=== PATIENT | male | born 1955 | race Caucasian/White ===

== ENCOUNTER 2019-04-25 13:17 | Inpatient (IN) | payer MEDICAID ==
[~2019-04-25] VITALS: Ht 175.3 cm; Wt 59.0 kg
[2019-04-25] VITALS (7 sets, daily range): BP systolic 109–128
[2019-04-25] MEDS ORDERED: NS 500 ML IV ONE (14:00)
[2019-04-25 14:29] LABS: BASOPHILS # (AUTO) 0.1 K/uL (0.0-0.2); BASOPHILS % (AUTO) 0.3 % (0.0-2.0); EOSINOPHILS % (AUTO) 0.2 % (0.0-4.0); HEMATOCRIT 42.7 % (36-54); HEMOGLOBIN 14.2 g/dL (14.0-18.0); LYMPHOCYTES # (AUTO) 0.7 K/uL (1.0-5.5); LYMPHOCYTES % (AUTO) 3.3 % (20.5-51.5); MEAN CORPUSCULAR HEMOGLOBIN 32 pg (27-31); MEAN CORPUSCULAR HGB CONC 33 % (32-36); MEAN CORPUSCULAR VOLUME 97 fL (79.0-98.0); MONOCYTES % (AUTO) 4.8 % (1.7-9.3); NEUTROPHILS # (AUTO) 19.9 K/uL (1.8-7.7); NEUTROPHILS % (AUTO) 91.4 % (40.0-70.0); PLATELET COUNT (AUTO) 271 K/uL (130-430); RED BLOOD CELL COUNT(AUTO) 4.39 MIL/uL (4.2-6.2); RED CELL DISTRIBUTION WIDTH 17.1 % (9.0-15.0); WHITE BLOOD COUNT (AUTO) 21.7 K/uL (4.8-10.8)
[2019-04-25 14:46] LABS: CALCIUM 8.8 mg/dL (8.4-11.0); CREATININE 0.45 mg/dL (0.55-1.30); POTASSIUM 4.7 mmol/L (3.5-5.1)
[2019-04-25 14:51] LABS: INR 1.1 (0.80-1.20); PROTHROMBIN TIME 11.4 SECS (9.5-12.5)
[2019-04-25 14:52] LABS: ALBUMIN 2.7 g/dL (3.4-4.8); TOTAL BILIRUBIN 0.7 mg/dL (0.0-1.0)
[2019-04-25] MEDS ORDERED: AZITHROMYCIN 500 MG in NS 250 ML IV ONE (15:00)
[2019-04-25] MEDS ORDERED: PIPERACILLIN/TAZO 3.375 GM in NS 50 ML IV ONE (15:00)
[2019-04-25] MEDS ORDERED: PIPERACILLIN/TAZOBACTAM 3.375 GM/VIAL (ZOSYN) IV ONE (15:22)
[2019-04-25] MEDS ORDERED: AZITHROMYCIN 500 MG/VIAL (ZITHROMAX) IV ONE (15:25)
[2019-04-25] MEDS ORDERED: VITD2000 GT (16:02)
[2019-04-25] MEDS ORDERED: [UNRECOGNIZED DRUG - CODE] TP (16:02)
[2019-04-25] MEDS ORDERED: HYT1 GT (16:02)
[2019-04-25] MEDS ORDERED: IPRA4AER INH (16:02)
[2019-04-25] MEDS ORDERED: IPRA3AMP19 NEB (16:15)
[2019-04-25] MEDS ORDERED: BETH50TA GT (16:15)
[2019-04-25] MEDS ORDERED: GABA-529 GT (16:15)
[2019-04-25] MEDS ORDERED: POLY15DR31 EACH EYE (16:15)
[2019-04-25] MEDS ORDERED: PHEN125O GT (16:15)
[2019-04-25] MEDS ORDERED: RIVA20TA GT (16:15)
[2019-04-25] MEDS ORDERED: BACL10TA GT (16:15)
[2019-04-25] MEDS ORDERED: ECO81 GT (16:15)
[2019-04-25 16:30] LABS: BILIRUBIN,URINE NEGATIVE (NEGATIVE); BLOOD, URINE 1+ (NEGATIVE); CLARITY/URINE SL CLOUDY (CLEAR); COLOR,URINE YELLOW (YELLOW); GLUCOSE,URINE NEGATIVE (NEGATIVE); KETONES,URINE NEGATIVE (NEGATIVE); LEUKOCYTE ESTERASE ,URINE NEGATIVE (NEGATIVE); NITRITE, URINE NEGATIVE (NEGATIVE); PH,URINE 5.5 (5.0-8.0); PROTEIN URINE NEGATIVE (NEGATIVE); UROBILINOGEN,URINE 0.2 (0.2-1.0)
[2019-04-25 16:45] LABS: BACTERIA,URINE MANY /HPF (None Seen); RBC,URINE 0-3 /HPF (0-3); URIC ACID CRYSTALS,URINE 0-10 /HPF (None Seen); URINE AMORPHOUS URATE 2+ /HPF (None Seen); WBC,URINE 0-3 /HPF (0-3)
[2019-04-25] MEDS ORDERED: IPRATROPIUM/ALBUTEROL SULFATE 3 ML AMPUL.NEB (DUONEB) INH PRN (18:15)
[2019-04-25] MEDS ORDERED: ACETAMINOPHEN 650 MG/20.3 ML UDC PO PRN (18:15)
[2019-04-25] MEDS: IPRATROPIUM/ALBUTEROL SULFATE 3 ML AMPUL.NEB (DUONEB) INH SCH ×2 (20:01→23:42)
[2019-04-25] MEDS: BETHANECHOL CHLORIDE 25 MG TABLET (URECHOLINE) GT SCH (21:00)
[2019-04-25] MEDS: HIBICLENS TP SCH (21:00)
[2019-04-25] MEDS: RIVAROXABAN 20 MG TABLET GT SCH (21:49)
[2019-04-25] MEDS: PEG 400/HYPROMELLOSE/GLYCERIN 15 ML DROPS EACH EYE SCH ×2 (21:51→23:49)
[2019-04-25] MEDS: BACLOFEN 10 MG TABLET GT SCH (21:51)
[2019-04-25] MEDS: GABAPENTIN 100 MG CAPSULE GT SCH (21:52)
[2019-04-25] MEDS: LACTOBACILLUS RHAMNOSUS GG 1 CAP CAPSULE GT SCH (21:52)
[2019-04-25] MEDS: TERAZOSIN HCL 5 MG CAPSULE (HYTRIN) GT SCH (21:53)
[2019-04-25] MEDS: PHENYTOIN 100 MG/4 ML UDC (DILANTIN) GT SCH (21:54)
[2019-04-25] MEDS: guaiFENesin 200 MG/10 ML UDC GT SCH (21:54)
[2019-04-25] MEDS: NACL 0.9% 1,000 ML IV SCH (23:48)
[2019-04-25] MEDS: PIPERACILLIN/TAZO 3.375/DEX-IS 50 ML IV SCH (23:49)
[2019-04-26] VITALS (24 sets, daily range): BP systolic 94–131
[2019-04-26] MEDS: IPRATROPIUM/ALBUTEROL SULFATE 3 ML AMPUL.NEB (DUONEB) INH SCH ×6 (03:24→23:24)
[2019-04-26] MEDS: PEG 400/HYPROMELLOSE/GLYCERIN 15 ML DROPS EACH EYE SCH ×3 (05:41→17:17)
[2019-04-26] MEDS: GABAPENTIN 100 MG CAPSULE GT SCH ×3 (05:42→21:44)
[2019-04-26] MEDS: PIPERACILLIN/TAZO 3.375/DEX-IS 50 ML IV SCH ×3 (05:42→17:16)
[2019-04-26 06:03] LABS: BASOPHILS # (AUTO) 0.1 K/uL (0.0-0.2); BASOPHILS % (AUTO) 0.3 % (0.0-2.0); EOSINOPHILS % (AUTO) 0.1 % (0.0-4.0); HEMATOCRIT 40.9 % (36-54); HEMOGLOBIN 13.4 g/dL (14.0-18.0); LYMPHOCYTES # (AUTO) 0.7 K/uL (1.0-5.5); LYMPHOCYTES % (AUTO) 3.6 % (20.5-51.5); MEAN CORPUSCULAR HEMOGLOBIN 32 pg (27-31); MEAN CORPUSCULAR HGB CONC 33 % (32-36); MONOCYTES # (AUTO) 1.5 K/uL (0.0-1.0); MONOCYTES % (AUTO) 7.6 % (1.7-9.3); NEUTROPHILS # (AUTO) 17.3 K/uL (1.8-7.7); NEUTROPHILS % (AUTO) 88.4 % (40.0-70.0); PLATELET COUNT (AUTO) 220 K/uL (130-430); RED BLOOD CELL COUNT(AUTO) 4.15 MIL/uL (4.2-6.2); RED CELL DISTRIBUTION WIDTH 16.9 % (9.0-15.0); WHITE BLOOD COUNT (AUTO) 19.6 K/uL (4.8-10.8)
[2019-04-26 06:07] LABS: ALBUMIN 2.5 g/dL (3.4-4.8); CALCIUM 8.7 mg/dL (8.4-11.0); CREATININE 0.63 mg/dL (0.55-1.30); POTASSIUM 3.7 mmol/L (3.5-5.1); TOTAL BILIRUBIN 0.6 mg/dL (0.0-1.0)
[2019-04-26 06:10] LABS: MEAN CORPUSCULAR VOLUME 98 fL (79.0-98.0)
[2019-04-26] MEDS: HIBICLENS TP SCH ×2 (09:00→20:47)
[2019-04-26] MEDS ORDERED: AZITHROMYCIN 500 MG in NS 250 ML IV SCH (09:00)
[2019-04-26] MEDS: PHENYTOIN 100 MG/4 ML UDC (DILANTIN) GT SCH ×3 (09:15→20:47)
[2019-04-26] MEDS: guaiFENesin 200 MG/10 ML UDC GT SCH ×4 (09:15→20:44)
[2019-04-26] MEDS: LACTOBACILLUS RHAMNOSUS GG 1 CAP CAPSULE GT SCH ×2 (09:16→20:45)
[2019-04-26] MEDS: ASPIRIN 81 MG TAB.CHEW GT SCH (09:16)
[2019-04-26] MEDS: CHOLECALCIFEROL (VITAMIN D3) 2,000 UNIT TABLET GT SCH (09:16)
[2019-04-26] MEDS: BACLOFEN 10 MG TABLET GT SCH ×3 (09:16→20:44)
[2019-04-26] MEDS: BETHANECHOL CHLORIDE 25 MG TABLET (URECHOLINE) GT SCH ×3 (09:41→20:45)
[2019-04-26] MEDS: TERAZOSIN HCL 5 MG CAPSULE (HYTRIN) GT SCH ×2 (09:41→20:46)
[2019-04-26] MEDS: LEVOFLOXACIN 500 MG/D5W 100 ML IV SCH (14:08)
[2019-04-26] MEDS ORDERED: MENTHOL/ZINC OXIDE 113 GM OINT. TP PRN (14:45)
[2019-04-26] MEDS: RIVAROXABAN 20 MG TABLET GT SCH (17:18)
[2019-04-26] MEDS: NACL 0.9% 1,000 ML IV SCH (17:20)
[2019-04-27] VITALS (20 sets, daily range): BP systolic 83–118
[2019-04-27] MEDS: PIPERACILLIN/TAZO 3.375/DEX-IS 50 ML IV SCH ×5 (00:15→23:05)
[2019-04-27] MEDS: PEG 400/HYPROMELLOSE/GLYCERIN 15 ML DROPS EACH EYE SCH ×5 (00:16→23:05)
[2019-04-27] MEDS: IPRATROPIUM/ALBUTEROL SULFATE 3 ML AMPUL.NEB (DUONEB) INH SCH ×6 (03:25→23:01)
[2019-04-27 05:30] LABS: BASOPHILS # (AUTO) 0.1 K/uL (0.0-0.2); BASOPHILS % (AUTO) 0.4 % (0.0-2.0); EOSINOPHILS # (AUTO) 0.4 K/uL (0.0-0.4); EOSINOPHILS % (AUTO) 2.7 % (0.0-4.0); HEMATOCRIT 35.2 % (36-54); HEMOGLOBIN 11.8 g/dL (14.0-18.0); LYMPHOCYTES # (AUTO) 1.3 K/uL (1.0-5.5); LYMPHOCYTES % (AUTO) 9.4 % (20.5-51.5); MEAN CORPUSCULAR HEMOGLOBIN 33 pg (27-31); MEAN CORPUSCULAR HGB CONC 33 % (32-36); MEAN CORPUSCULAR VOLUME 98 fL (79.0-98.0); MONOCYTES # (AUTO) 1.3 K/uL (0.0-1.0); MONOCYTES % (AUTO) 9.2 % (1.7-9.3); NEUTROPHILS % (AUTO) 78.3 % (40.0-70.0); PLATELET COUNT (AUTO) 199 K/uL (130-430); RED BLOOD CELL COUNT(AUTO) 3.59 MIL/uL (4.2-6.2); RED CELL DISTRIBUTION WIDTH 16.7 % (9.0-15.0)
[2019-04-27] MEDS: GABAPENTIN 100 MG CAPSULE GT SCH ×3 (05:47→22:23)
[2019-04-27 05:52] LABS: ALBUMIN 2.4 g/dL (3.4-4.8); BILIRUBIN,DIRECT 0.1 mg/dL (0.0-0.3); CALCIUM 8.3 mg/dL (8.4-11.0); CREATININE 0.48 mg/dL (0.55-1.30); POTASSIUM 3.3 mmol/L (3.5-5.1); TOTAL BILIRUBIN 0.3 mg/dL (0.0-1.0)
[2019-04-27] MEDS: BALSAM PERU/CASTOR OIL 60 GM OINT...G. TP SCH (08:27)
[2019-04-27] MEDS: BETHANECHOL CHLORIDE 25 MG TABLET (URECHOLINE) GT SCH ×3 (08:27→22:24)
[2019-04-27] MEDS: TERAZOSIN HCL 5 MG CAPSULE (HYTRIN) GT SCH ×2 (08:28→22:25)
[2019-04-27] MEDS: BACLOFEN 10 MG TABLET GT SCH ×3 (08:29→22:24)
[2019-04-27] MEDS: CHOLECALCIFEROL (VITAMIN D3) 2,000 UNIT TABLET GT SCH (08:29)
[2019-04-27] MEDS: PHENYTOIN 100 MG/4 ML UDC (DILANTIN) GT SCH ×3 (08:29→22:23)
[2019-04-27] MEDS: LACTOBACILLUS RHAMNOSUS GG 1 CAP CAPSULE GT SCH ×2 (08:29→22:24)
[2019-04-27] MEDS: ASPIRIN 81 MG TAB.CHEW GT SCH (08:29)
[2019-04-27] MEDS: HIBICLENS TP SCH (09:00)
[2019-04-27] MEDS: guaiFENesin 200 MG/10 ML UDC GT SCH ×4 (09:27→22:22)
[2019-04-27] MEDS: LEVOFLOXACIN 500 MG/D5W 100 ML IV SCH (12:07)
[2019-04-27] MEDS ORDERED: POTASSIUM CHLORIDE 20 MEQ/PKT PACKET PO ONE (13:00)
[2019-04-27] MEDS: NACL 0.9% 1,000 ML IV SCH (14:33)
[2019-04-27] MEDS: RIVAROXABAN 20 MG TABLET GT SCH (17:41)
[2019-04-27] MEDS: CHLORHEXIDINE GLUCONATE 15 ML/DOSE, 480 ML MM SCH (21:00)
[2019-04-27] MEDS: POTASSIUM CHLORIDE 20 MEQ/PKT PACKET PO SCH (22:23)
[2019-04-28] VITALS: BP_SYST 108
[2019-04-28] MEDS: IPRATROPIUM/ALBUTEROL SULFATE 3 ML AMPUL.NEB (DUONEB) INH SCH ×6 (02:45→23:36)
[2019-04-28] MEDS: GABAPENTIN 100 MG CAPSULE GT SCH ×3 (05:01→23:07)
[2019-04-28] MEDS: PEG 400/HYPROMELLOSE/GLYCERIN 15 ML DROPS EACH EYE SCH ×4 (05:02→23:28)
[2019-04-28] MEDS: PIPERACILLIN/TAZO 3.375/DEX-IS 50 ML IV SCH (05:02)
[2019-04-28 06:23] LABS: ALBUMIN 2.1 g/dL (3.4-4.8); CALCIUM 8.2 mg/dL (8.4-11.0); CREATININE 0.4 mg/dL (0.55-1.30); TOTAL BILIRUBIN 0.2 mg/dL (0.0-1.0)
[2019-04-28 07:03] LABS: BASOPHILS % (AUTO) 0.6 % (0.0-2.0); EOSINOPHILS # (AUTO) 0.3 K/uL (0.0-0.4); EOSINOPHILS % (AUTO) 3.1 % (0.0-4.0); HEMATOCRIT 34.6 % (36-54); HEMOGLOBIN 11.5 g/dL (14.0-18.0); LYMPHOCYTES % (AUTO) 11.4 % (20.5-51.5); MEAN CORPUSCULAR HEMOGLOBIN 33 pg (27-31); MEAN CORPUSCULAR HGB CONC 33 % (32-36); MEAN CORPUSCULAR VOLUME 99 fL (79.0-98.0); MONOCYTES # (AUTO) 0.6 K/uL (0.0-1.0); MONOCYTES % (AUTO) 7.1 % (1.7-9.3); NEUTROPHILS # (AUTO) 6.7 K/uL (1.8-7.7); NEUTROPHILS % (AUTO) 77.8 % (40.0-70.0); PLATELET COUNT (AUTO) 233 K/uL (130-430); RED CELL DISTRIBUTION WIDTH 16.9 % (9.0-15.0); WHITE BLOOD COUNT (AUTO) 8.6 K/uL (4.8-10.8)
[2019-04-28] MEDS: guaiFENesin 200 MG/10 ML UDC GT SCH ×4 (08:43→23:07)
[2019-04-28] MEDS: POTASSIUM CHLORIDE 20 MEQ/PKT PACKET PO SCH ×2 (08:43→23:07)
[2019-04-28] MEDS: BETHANECHOL CHLORIDE 25 MG TABLET (URECHOLINE) GT SCH ×3 (08:44→23:10)
[2019-04-28] MEDS: ASPIRIN 81 MG TAB.CHEW GT SCH (08:44)
[2019-04-28] MEDS: PHENYTOIN 100 MG/4 ML UDC (DILANTIN) GT SCH ×3 (08:44→23:11)
[2019-04-28] MEDS: LACTOBACILLUS RHAMNOSUS GG 1 CAP CAPSULE GT SCH ×2 (08:44→23:10)
[2019-04-28] MEDS: CHOLECALCIFEROL (VITAMIN D3) 2,000 UNIT TABLET GT SCH (08:44)
[2019-04-28] MEDS: BACLOFEN 10 MG TABLET GT SCH ×3 (08:45→23:07)
[2019-04-28] MEDS: BALSAM PERU/CASTOR OIL 60 GM OINT...G. TP SCH (08:47)
[2019-04-28] MEDS: TERAZOSIN HCL 5 MG CAPSULE (HYTRIN) GT SCH ×2 (08:47→23:10)
[2019-04-28 08:48] VITALS: BP_SYST 103
[2019-04-28] MEDS: CHLORHEXIDINE GLUCONATE 15 ML/DOSE, 480 ML MM SCH ×2 (09:00→21:00)
[2019-04-28] MEDS: NACL 0.9% 1,000 ML IV SCH (11:36)
[2019-04-28 13:05] VITALS: BP_SYST 112
[2019-04-28 16:17] VITALS: BP_SYST 114
[2019-04-28] MEDS: RIVAROXABAN 20 MG TABLET GT SCH (17:23)
[2019-04-28 20:35] VITALS: BP_SYST 109
[2019-04-28] MEDS: CEFEPIME 1 GM in D5W 50 ML IV SCH (23:10)
[2019-04-29] VITALS (7 sets, daily range): BP systolic 105–130
[2019-04-29] MEDS: IPRATROPIUM/ALBUTEROL SULFATE 3 ML AMPUL.NEB (DUONEB) INH SCH ×5 (03:29→20:09)
[2019-04-29] MEDS: GABAPENTIN 100 MG CAPSULE GT SCH ×3 (05:59→23:40)
[2019-04-29] MEDS: NACL 0.9% 1,000 ML IV SCH ×2 (06:00→23:40)
[2019-04-29] MEDS: PEG 400/HYPROMELLOSE/GLYCERIN 15 ML DROPS EACH EYE SCH ×4 (06:00→23:40)
[2019-04-29] MEDS: guaiFENesin 200 MG/10 ML UDC GT SCH ×4 (08:22→23:39)
[2019-04-29] MEDS: PHENYTOIN 100 MG/4 ML UDC (DILANTIN) GT SCH ×3 (08:22→23:38)
[2019-04-29] MEDS: BETHANECHOL CHLORIDE 25 MG TABLET (URECHOLINE) GT SCH ×3 (08:22→23:39)
[2019-04-29] MEDS: BACLOFEN 10 MG TABLET GT SCH ×3 (08:23→23:37)
[2019-04-29] MEDS: LACTOBACILLUS RHAMNOSUS GG 1 CAP CAPSULE GT SCH ×2 (08:23→23:37)
[2019-04-29] MEDS: POTASSIUM CHLORIDE 20 MEQ/PKT PACKET PO SCH ×2 (08:23→23:40)
[2019-04-29] MEDS: ASPIRIN 81 MG TAB.CHEW GT SCH (08:23)
[2019-04-29] MEDS: CEFEPIME 1 GM in D5W 50 ML IV SCH ×2 (08:24→23:39)
[2019-04-29] MEDS: CHOLECALCIFEROL (VITAMIN D3) 2,000 UNIT TABLET GT SCH (08:24)
[2019-04-29] MEDS: TERAZOSIN HCL 5 MG CAPSULE (HYTRIN) GT SCH ×2 (08:24→23:38)
[2019-04-29] MEDS: BALSAM PERU/CASTOR OIL 60 GM OINT...G. TP SCH (08:34)
[2019-04-29] MEDS: CHLORHEXIDINE GLUCONATE 15 ML/DOSE, 480 ML MM SCH ×2 (08:44→23:41)
[2019-04-29] MEDS ORDERED: FUROSEMIDE 20 MG/2 ML VIAL IVP ONE (11:00)
[2019-04-29] MEDS: RIVAROXABAN 20 MG TABLET GT SCH (18:33)
[2019-04-30] MEDS: IPRATROPIUM/ALBUTEROL SULFATE 3 ML AMPUL.NEB (DUONEB) INH SCH ×6 (00:41→23:44)
[2019-04-30] MEDS: PEG 400/HYPROMELLOSE/GLYCERIN 15 ML DROPS EACH EYE SCH ×3 (05:18→18:21)
[2019-04-30] MEDS: GABAPENTIN 100 MG CAPSULE GT SCH ×3 (05:18→21:52)
[2019-04-30 05:58] LABS: BASOPHILS # (AUTO) 0.1 K/uL (0.0-0.2); BASOPHILS % (AUTO) 0.7 % (0.0-2.0); EOSINOPHILS # (AUTO) 0.7 K/uL (0.0-0.4); EOSINOPHILS % (AUTO) 6.3 % (0.0-4.0); HEMOGLOBIN 12.9 g/dL (14.0-18.0); LYMPHOCYTES # (AUTO) 0.8 K/uL (1.0-5.5); LYMPHOCYTES % (AUTO) 7.8 % (20.5-51.5); MEAN CORPUSCULAR HEMOGLOBIN 33 pg (27-31); MEAN CORPUSCULAR HGB CONC 34 % (32-36); MEAN CORPUSCULAR VOLUME 97 fL (79.0-98.0); MONOCYTES # (AUTO) 0.8 K/uL (0.0-1.0); MONOCYTES % (AUTO) 7.8 % (1.7-9.3); NEUTROPHILS # (AUTO) 8.4 K/uL (1.8-7.7); NEUTROPHILS % (AUTO) 77.4 % (40.0-70.0); PLATELET COUNT (AUTO) 314 K/uL (130-430); RED BLOOD CELL COUNT(AUTO) 3.92 MIL/uL (4.2-6.2); WHITE BLOOD COUNT (AUTO) 10.9 K/uL (4.8-10.8)
[2019-04-30 06:05] LABS: CALCIUM 8.3 mg/dL (8.4-11.0); CREATININE 0.33 mg/dL (0.55-1.30); POTASSIUM 4.3 mmol/L (3.5-5.1)
[2019-04-30] MEDS: PHENYTOIN 100 MG/4 ML UDC (DILANTIN) GT SCH ×3 (09:06→21:52)
[2019-04-30] MEDS: POTASSIUM CHLORIDE 20 MEQ/PKT PACKET PO SCH ×2 (09:11→21:52)
[2019-04-30] MEDS: BETHANECHOL CHLORIDE 25 MG TABLET (URECHOLINE) GT SCH ×3 (09:11→21:47)
[2019-04-30] MEDS: guaiFENesin 200 MG/10 ML UDC GT SCH ×4 (09:11→21:51)
[2019-04-30] MEDS: BACLOFEN 10 MG TABLET GT SCH ×3 (09:12→21:47)
[2019-04-30] MEDS: CEFEPIME 1 GM in D5W 50 ML IV SCH ×2 (09:12→21:53)
[2019-04-30] MEDS: TERAZOSIN HCL 5 MG CAPSULE (HYTRIN) GT SCH ×2 (09:12→21:51)
[2019-04-30] MEDS: LACTOBACILLUS RHAMNOSUS GG 1 CAP CAPSULE GT SCH ×2 (09:12→21:47)
[2019-04-30] MEDS: CHOLECALCIFEROL (VITAMIN D3) 2,000 UNIT TABLET GT SCH (09:12)
[2019-04-30] MEDS: BALSAM PERU/CASTOR OIL 60 GM OINT...G. TP SCH (09:13)
[2019-04-30] MEDS: CHLORHEXIDINE GLUCONATE 15 ML/DOSE, 480 ML MM SCH ×2 (09:14→21:53)
[2019-04-30] MEDS: ASPIRIN 81 MG TAB.CHEW GT SCH (09:56)
[2019-04-30 12:28] VITALS: BP_SYST 111
[2019-04-30 16:56] VITALS: BP_SYST 119
[2019-04-30] MEDS: RIVAROXABAN 20 MG TABLET GT SCH (18:20)
[2019-04-30 20:00] VITALS: BP_SYST 130
[2019-04-30] MEDS: NACL 0.9% 1,000 ML IV SCH (21:54)
[2019-04-30 23:29] VITALS: BP_SYST 128
[2019-05-01] MEDS: PEG 400/HYPROMELLOSE/GLYCERIN 15 ML DROPS EACH EYE SCH ×4 (00:52→17:55)
[2019-05-01] MEDS: IPRATROPIUM/ALBUTEROL SULFATE 3 ML AMPUL.NEB (DUONEB) INH SCH ×6 (03:42→23:12)
[2019-05-01] MEDS: GABAPENTIN 100 MG CAPSULE GT SCH ×3 (05:25→21:11)
[2019-05-01 08:00] VITALS: BP_SYST 136
[2019-05-01] MEDS: guaiFENesin 200 MG/10 ML UDC GT SCH ×4 (10:25→21:12)
[2019-05-01] MEDS: POTASSIUM CHLORIDE 20 MEQ/PKT PACKET PO SCH ×2 (10:25→21:11)
[2019-05-01] MEDS: LACTOBACILLUS RHAMNOSUS GG 1 CAP CAPSULE GT SCH ×2 (10:26→21:11)
[2019-05-01] MEDS: ASPIRIN 81 MG TAB.CHEW GT SCH (10:26)
[2019-05-01] MEDS: PHENYTOIN 100 MG/4 ML UDC (DILANTIN) GT SCH ×3 (10:26→21:12)
[2019-05-01] MEDS: BACLOFEN 10 MG TABLET GT SCH ×3 (10:27→21:11)
[2019-05-01] MEDS: BETHANECHOL CHLORIDE 25 MG TABLET (URECHOLINE) GT SCH ×3 (10:27→21:11)
[2019-05-01] MEDS: CHOLECALCIFEROL (VITAMIN D3) 2,000 UNIT TABLET GT SCH (10:27)
[2019-05-01] MEDS: BALSAM PERU/CASTOR OIL 60 GM OINT...G. TP SCH (10:28)
[2019-05-01] MEDS: CHLORHEXIDINE GLUCONATE 15 ML/DOSE, 480 ML MM SCH ×2 (10:28→21:13)
[2019-05-01] MEDS: CEFEPIME 1 GM in D5W 50 ML IV SCH ×2 (10:29→21:11)
[2019-05-01] MEDS: TERAZOSIN HCL 5 MG CAPSULE (HYTRIN) GT SCH ×2 (10:30→21:12)
[2019-05-01 12:29] VITALS: BP_SYST 123
[2019-05-01] MEDS: NACL 0.9% 1,000 ML IV SCH (15:47)
[2019-05-01 16:39] VITALS: BP_SYST 126
[2019-05-01] MEDS: RIVAROXABAN 20 MG TABLET GT SCH (17:55)
[2019-05-01 20:00] VITALS: BP_SYST 127
[2019-05-01 23:41] VITALS: BP_SYST 125
[2019-05-02] MEDS: PEG 400/HYPROMELLOSE/GLYCERIN 15 ML DROPS EACH EYE SCH ×3 (00:40→13:26)
[2019-05-02] MEDS: IPRATROPIUM/ALBUTEROL SULFATE 3 ML AMPUL.NEB (DUONEB) INH SCH ×4 (03:40→18:14)
[2019-05-02] MEDS: GABAPENTIN 100 MG CAPSULE GT SCH ×2 (05:12→13:25)
[2019-05-02 06:17] LABS: BASOPHILS # (AUTO) 0.1 K/uL (0.0-0.2); BASOPHILS % (AUTO) 1.7 % (0.0-2.0); EOSINOPHILS % (AUTO) 16.1 % (0.0-4.0); HEMOGLOBIN 12.8 g/dL (14.0-18.0); LYMPHOCYTES # (AUTO) 1.1 K/uL (1.0-5.5); LYMPHOCYTES % (AUTO) 17.3 % (20.5-51.5); MEAN CORPUSCULAR HEMOGLOBIN 33 pg (27-31); MEAN CORPUSCULAR HGB CONC 34 % (32-36); MEAN CORPUSCULAR VOLUME 97 fL (79.0-98.0); MONOCYTES # (AUTO) 0.6 K/uL (0.0-1.0); MONOCYTES % (AUTO) 10.5 % (1.7-9.3); NEUTROPHILS # (AUTO) 3.4 K/uL (1.8-7.7); NEUTROPHILS % (AUTO) 54.4 % (40.0-70.0); PLATELET COUNT (AUTO) 335 K/uL (130-430); WHITE BLOOD COUNT (AUTO) 6.2 K/uL (4.8-10.8)
[2019-05-02 06:24] LABS: ALBUMIN 2.3 g/dL (3.4-4.8); CALCIUM 8.3 mg/dL (8.4-11.0); CREATININE 0.41 mg/dL (0.55-1.30); POTASSIUM 4.2 mmol/L (3.5-5.1); TOTAL BILIRUBIN 0.2 mg/dL (0.0-1.0)
[2019-05-02 08:00] VITALS: BP_SYST 119
[2019-05-02] MEDS: POTASSIUM CHLORIDE 20 MEQ/PKT PACKET PO SCH (10:13)
[2019-05-02] MEDS: guaiFENesin 200 MG/10 ML UDC GT SCH ×2 (10:14→13:26)
[2019-05-02] MEDS: BACLOFEN 10 MG TABLET GT SCH ×2 (10:14→16:56)
[2019-05-02] MEDS: PHENYTOIN 100 MG/4 ML UDC (DILANTIN) GT SCH ×2 (10:14→16:57)
[2019-05-02] MEDS: LACTOBACILLUS RHAMNOSUS GG 1 CAP CAPSULE GT SCH (10:14)
[2019-05-02] MEDS: ASPIRIN 81 MG TAB.CHEW GT SCH (10:15)
[2019-05-02] MEDS: BETHANECHOL CHLORIDE 25 MG TABLET (URECHOLINE) GT SCH ×2 (10:15→16:56)
[2019-05-02] MEDS: TERAZOSIN HCL 5 MG CAPSULE (HYTRIN) GT SCH (10:15)
[2019-05-02] MEDS: CHOLECALCIFEROL (VITAMIN D3) 2,000 UNIT TABLET GT SCH (10:15)
[2019-05-02] MEDS: CEFEPIME 1 GM in D5W 50 ML IV SCH (10:16)
[2019-05-02] MEDS: BALSAM PERU/CASTOR OIL 60 GM OINT...G. TP SCH (10:17)
[2019-05-02] MEDS: CHLORHEXIDINE GLUCONATE 15 ML/DOSE, 480 ML MM SCH (10:17)
[2019-05-02 12:23] VITALS: BP_SYST 129
[2019-05-02] MEDS: NACL 0.9% 1,000 ML IV SCH (13:25)
[2019-05-02 16:57] VITALS: BP_SYST 109
[2019-05-02 18:03] VITALS: BP_SYST 109
== END 2019-05-02 18:50 | DRG 720 ==
LOC: SED 13:17 → SIC 17:02 → STU 04-27 19:57
PROVIDERS: ADMIT Internal Medicine; ATTEND Internal Medicine
DX: A41.9 Sepsis, unspecified organism (principal); J96.20 Acute and chronic respiratory failure, unspecified whether with hypoxia or hypercapnia; E43 Unspecified severe protein-calorie malnutrition; G82.50 Quadriplegia, unspecified; G93.1 Anoxic brain damage, not elsewhere classified; J15.9 Unspecified bacterial pneumonia; J44.0 Chronic obstructive pulmonary disease with (acute) lower respiratory infection; N39.0 Urinary tract infection, site not specified; Y95 Nosocomial condition; I10 Essential (primary) hypertension; E87.6 Hypokalemia; J98.11 Atelectasis; Z68.1 Body mass index [BMI] 19.9 or less, adult; Z86.73 Personal history of transient ischemic attack (TIA), and cerebral infarction without residual deficits; Z79.899 Other long term (current) drug therapy
CPT/HCPCS: 36415; 36600; 71045; 71250-TC; 80048; 80053; 80076; 81000-TC; 82803-TC; 83605; 84484; 85025; 85610-TC; 85730-TC; 87040-TC; 87070-TC; 87081; 87086; 87205-TC; 93005; 94640; 94760; 96361; 96365; 96368; 99291; G0378; J0456; J0692; J1940; J1956; J2543; J7030; J7050; J7060

== ENCOUNTER 2019-05-30 13:30 | Emergency (ER) | payer MEDICAID ==
[~2019-05-30] VITALS: Ht 172.7 cm; Wt 83.9 kg
[~2019-05-30 13:30] MED LIST: BACL10TA GT; BETH50TA GT; ECO81 GT; GABA-529 GT; HYT1 GT; IPRA3AMP19 NEB; IPRA4AER INH; PHEN125O GT; POLY15DR31 EACH EYE; RIVA20TA GT; VITD2000 GT; [UNRECOGNIZED DRUG - CODE] TP
[2019-05-30 13:50] VITALS: BP_SYST 96
[2019-05-30 14:18] LABS: BASOPHILS # (AUTO) 0.1 K/uL (0.0-0.2); BASOPHILS % (AUTO) 1.1 % (0.0-2.0); EOSINOPHILS # (AUTO) 0.2 K/uL (0.0-0.4); EOSINOPHILS % (AUTO) 2.4 % (0.0-4.0); HEMATOCRIT 37.8 % (36-54); HEMOGLOBIN 12.5 g/dL (14.0-18.0); LYMPHOCYTES # (AUTO) 1.1 K/uL (1.0-5.5); LYMPHOCYTES % (AUTO) 10.9 % (20.5-51.5); MEAN CORPUSCULAR HEMOGLOBIN 33 pg (27-31); MEAN CORPUSCULAR HGB CONC 33 % (32-36); MEAN CORPUSCULAR VOLUME 100 fL (79.0-98.0); MONOCYTES # (AUTO) 0.7 K/uL (0.0-1.0); MONOCYTES % (AUTO) 6.9 % (1.7-9.3); NEUTROPHILS % (AUTO) 78.7 % (40.0-70.0); PLATELET COUNT (AUTO) 289 K/uL (130-430); RED BLOOD CELL COUNT(AUTO) 3.79 MIL/uL (4.2-6.2); RED CELL DISTRIBUTION WIDTH 15.5 % (9.0-15.0); WHITE BLOOD COUNT (AUTO) 10.1 K/uL (4.8-10.8)
[2019-05-30] MEDS ORDERED: NS 500 ML IV ONE (14:30)
[2019-05-30] MEDS ORDERED: ACETAMINOPHEN 650 MG SUPP.RECT RC ONE (14:30)
[2019-05-30 14:37] LABS: BILIRUBIN,URINE NEGATIVE (NEGATIVE); BLOOD, URINE 3+ (NEGATIVE); CLARITY/URINE CLEAR (CLEAR); COLOR,URINE YELLOW (YELLOW); GLUCOSE,URINE NEGATIVE (NEGATIVE); KETONES,URINE NEGATIVE (NEGATIVE); LEUKOCYTE ESTERASE ,URINE NEGATIVE (NEGATIVE); NITRITE, URINE NEGATIVE (NEGATIVE); PH,URINE 5.5 (5.0-8.0); PROTEIN URINE 1+ (NEGATIVE)
[2019-05-30 14:43] LABS: BACTERIA,URINE FEW /HPF (None Seen); MUCUS,URINE 1+ /LPF (None Seen); RBC,URINE 20-50 /HPF (0-3)
[2019-05-30] MEDS ORDERED: DOCU-144 GT (15:10)
[2019-05-30] MEDS ORDERED: IPRA3AMP9 INH (15:10)
[2019-05-30] MEDS ORDERED: BETH50TA8 GT (15:10)
[2019-05-30] MEDS ORDERED: DEXT30DR6 EACH EYE (15:10)
[2019-05-30] MEDS ORDERED: VITD2000 GT ×2 (15:10)
[2019-05-30] MEDS ORDERED: BACL10TA GT (15:10)
[2019-05-30] MEDS ORDERED: ASPI-1153 GT (15:10)
[2019-05-30] MEDS ORDERED: GABA-529 GT (15:10)
[2019-05-30 15:22] LABS: CALCIUM 7.9 mg/dL (8.4-11.0); CREATININE 0.64 mg/dL (0.55-1.30); POTASSIUM 4.1 mmol/L (3.5-5.1)
[2019-05-30 15:28] LABS: ALBUMIN 2.4 g/dL (3.4-4.8); TOTAL BILIRUBIN 0.3 mg/dL (0.0-1.0)
[2019-05-30] MEDS ORDERED: PIPERACILLIN/TAZO 3.375 GM in NS 50 ML IV ONE (15:45)
[2019-05-30] MEDS ORDERED: PIPERACILLIN/TAZOBACTAM 3.375 GM/VIAL (ZOSYN) IV ONE (16:19)
[2019-05-30 16:25] VITALS: BP_SYST 105
== END 2019-05-30 16:25 ==
LOC: SED 13:30
DX: J18.8 Other pneumonia, unspecified organism (principal); E86.0 Dehydration; I10 Essential (primary) hypertension; Z79.899 Other long term (current) drug therapy
CPT/HCPCS: 36415; 71045; 80053; 81000; 83605; 85025; 86710; 87040; 87086; 96361; 96365; 99284; J2543; J7040; 87186-TC

== ENCOUNTER 2019-10-28 22:35 | Inpatient (IN) | payer MEDICAID, SELFPAY ==
[~2019-10-28] VITALS: Ht 177.8 cm; Wt 66.7 kg
[2019-10-28 22:35] VITALS: BP_SYST 96
[~2019-10-28 22:35] MED LIST changes: +ACET325C6 GT; +AMIN30LI31 GT; +ASPI-524 GT; -BETH50TA GT; +CHOL100038 GT; +DOCU-144 GT; +DOXY100C PO; -ECO81 GT; -HYT1 GT; -IPRA3AMP19 NEB; +IPRA3AMP9 NEB; -IPRA4AER INH; +LEVE500T9 PO; +MERI500 IVPB; +PERIDEX PO; -PHEN125O GT; +POTA20LI25 GT; +TAMS-11 GT; +TERA5CAP GT; -VITD2000 GT; -[UNRECOGNIZED DRUG - CODE] TP
[2019-10-28 23:08] LABS: MEAN CORPUSCULAR HEMOGLOBIN 32 pg (27-31); MEAN CORPUSCULAR HGB CONC 34 % (32-36); MEAN CORPUSCULAR VOLUME 92 fL (79.0-98.0); PLATELET COUNT (AUTO) 311 K/uL (130-430); RED BLOOD CELL COUNT(AUTO) 4.12 MIL/uL (4.2-6.2); RED CELL DISTRIBUTION WIDTH 14.8 % (9.0-15.0); WHITE BLOOD COUNT (AUTO) 25.6 K/uL (4.8-10.8)
[2019-10-28 23:24] LABS: CALCIUM 8.3 mg/dL (8.4-11.0); CREATININE 1.29 mg/dL (0.55-1.30); POTASSIUM 3.5 mmol/L (3.5-5.1)
[2019-10-28 23:29] LABS: ALBUMIN 2.6 g/dL (3.4-4.8); TOTAL BILIRUBIN 0.5 mg/dL (0.0-1.0)
[2019-10-28 23:35] LABS: BILIRUBIN,URINE 1+ (NEGATIVE); BLOOD, URINE 3+ (NEGATIVE); CLARITY/URINE CLOUDY (CLEAR); COLOR,URINE RED (YELLOW); GLUCOSE,URINE NEGATIVE (NEGATIVE); KETONES,URINE NEGATIVE (NEGATIVE); LEUKOCYTE ESTERASE ,URINE 3+ (NEGATIVE); NITRITE, URINE POSITIVE (NEGATIVE); PH,URINE 6.5 (5.0-8.0); PROTEIN URINE 3+ (NEGATIVE); UROBILINOGEN,URINE 0.2 (0.2-1.0)
[2019-10-28 23:42] LABS: C-REACTIVE PROTEIN QUANT 12.1 mg/dL (0-0.5)
[2019-10-28] MEDS ORDERED: VANCOMYCIN HCL 1,000 MG in NS 250 ML IV ONE (23:45)
[2019-10-28] MEDS ORDERED: NACL 0.9% IV ONE (23:45)
[2019-10-28 23:46] LABS: INR 1.5 (0.80-1.20); PROTHROMBIN TIME 15.2 SECS (9.5-12.5)
[2019-10-28 23:49] LABS: ATYPICAL LYMPHOCYTES % 0 % (0-0); BAND % (MANUAL) 14 % (0-6); BASOPHILS % (MANUAL) 0 % (0-2); EOSINOPHILS % (MANUAL) 0 % (0-7); LYMPHOCYTES % (MANUAL) 1 % (20-46); MONOCYTES % (MANUAL) 4 % (0-11)
[2019-10-28 23:55] LABS: BACTERIA,URINE MANY /HPF (None Seen); RBC,URINE >100 /HPF (0-3); WBC,URINE >100 /HPF (0-3)
[2019-10-28 23:57] LABS: FIBRINOGEN 516 mg/dL (200-400)
[2019-10-29] MEDS ORDERED: [UNRECOGNIZED DRUG - CODE] GT (00:09)
[2019-10-29] MEDS ORDERED: VANCOMYCIN HCL 1000 MG/VIAL IV ONE (00:10)
[2019-10-29] MEDS ORDERED: IPRATROPIUM/ALBUTEROL SULFATE 3 ML AMPUL.NEB (DUONEB) INH PRN (00:45)
[2019-10-29 01:45] VITALS: BP_SYST 105
[2019-10-29] MEDS ORDERED: PIPERACILLIN/TAZOBACTAM 3.375 GM/VIAL (ZOSYN) IV ONE (02:17)
[2019-10-29 04:00] VITALS: BP_SYST 112
[2019-10-29] MEDS: PIPERACILLIN/TAZO 3.375/DEX-IS 50 ML IV SCH ×3 (05:53→17:26)
[2019-10-29 08:00] VITALS: BP_SYST 112
[2019-10-29] MEDS ORDERED: DOXYCYCLINE HYCLATE 100 MG CAPSULE PO SCH (09:00)
[2019-10-29] MEDS ORDERED: NON-FORMULARY MEDICATION (Amino Acids/Protein Hydrolys (Pro-Stat Max Liquid Packet) 30 ML) GT SCH (09:00)
[2019-10-29] MEDS ORDERED: APIXABAN 2.5 MG TABLET GT ONE (09:30)
[2019-10-29] MEDS: TAMSULOSIN HCL 0.4 MG CAP GT SCH ×2 (09:56→20:36)
[2019-10-29] MEDS: BACLOFEN 10 MG TABLET GT SCH ×3 (09:56→20:35)
[2019-10-29] MEDS: CHOLECALCIFEROL (VITAMIN D3) 2,000 UNIT TABLET GT SCH (09:56)
[2019-10-29] MEDS: POTASSIUM CHLORIDE 20 MEQ/PKT PACKET GT SCH ×2 (09:56→20:44)
[2019-10-29] MEDS: CHLORHEXIDINE GLUCONATE 15 ML/DOSE, 480 ML MM SCH ×2 (09:56→20:43)
[2019-10-29] MEDS: TERAZOSIN HCL 5 MG CAPSULE (HYTRIN) GT SCH ×2 (09:56→22:08)
[2019-10-29] MEDS: LR 1,000 ML IV SCH ×2 (09:57→20:44)
[2019-10-29] MEDS: levETIRAcetam 500 MG TABLET PO SCH ×2 (09:57→20:36)
[2019-10-29] MEDS: IPRATROPIUM/ALBUTEROL SULFATE 3 ML AMPUL.NEB (DUONEB) IH SCH ×4 (11:19→23:00)
[2019-10-29] MEDS ORDERED: VANCOMYCIN HCL 1,500 MG in NS 250 ML IV SCH (12:00)
[2019-10-29] MEDS: PEG 400/HYPROMELLOSE/GLYCERIN 15 ML DROPS EACH EYE SCH ×2 (12:12→17:26)
[2019-10-29 12:15] VITALS: BP_SYST 104
[2019-10-29] MEDS: GABAPENTIN 100 MG CAPSULE GT SCH ×2 (14:35→22:08)
[2019-10-29 16:30] VITALS: BP_SYST 112
[2019-10-29 20:00] VITALS: BP_SYST 102
[2019-10-29] MEDS: APIXABAN 2.5 MG TABLET GT SCH (20:35)
[2019-10-29] MEDS: LINEZOLID 300 ML IV SCH (20:44)
[2019-10-29] MEDS ORDERED: DOXYCYCLINE HYCLATE 100 MG CAPSULE GT SCH (21:00)
[2019-10-30 00:55] VITALS: BP_SYST 100
[2019-10-30] MEDS: PEG 400/HYPROMELLOSE/GLYCERIN 15 ML DROPS EACH EYE SCH ×4 (00:59→17:32)
[2019-10-30] MEDS: PIPERACILLIN/TAZO 3.375/DEX-IS 50 ML IV SCH ×4 (00:59→17:33)
[2019-10-30] MEDS: IPRATROPIUM/ALBUTEROL SULFATE 3 ML AMPUL.NEB (DUONEB) IH SCH ×6 (03:47→23:08)
[2019-10-30] MEDS: LR 1,000 ML IV SCH ×2 (05:30→17:32)
[2019-10-30] MEDS: GABAPENTIN 100 MG CAPSULE GT SCH ×3 (06:41→21:07)
[2019-10-30 07:04] LABS: BASOPHILS % (AUTO) 0.4 % (0.0-2.0); EOSINOPHILS # (AUTO) 0.1 K/uL (0.0-0.4); EOSINOPHILS % (AUTO) 0.6 % (0.0-4.0); HEMATOCRIT 33.8 % (36-54); HEMOGLOBIN 11.2 g/dL (14.0-18.0); LYMPHOCYTES # (AUTO) 0.5 K/uL (1.0-5.5); LYMPHOCYTES % (AUTO) 4.4 % (20.5-51.5); MEAN CORPUSCULAR HEMOGLOBIN 31 pg (27-31); MEAN CORPUSCULAR HGB CONC 33 % (32-36); MEAN CORPUSCULAR VOLUME 94 fL (79.0-98.0); MONOCYTES # (AUTO) 0.5 K/uL (0.0-1.0); MONOCYTES % (AUTO) 4.4 % (1.7-9.3); NEUTROPHILS # (AUTO) 10.5 K/uL (1.8-7.7); NEUTROPHILS % (AUTO) 90.2 % (40.0-70.0); PLATELET COUNT (AUTO) 217 K/uL (130-430); RED BLOOD CELL COUNT(AUTO) 3.59 MIL/uL (4.2-6.2); RED CELL DISTRIBUTION WIDTH 14.4 % (9.0-15.0); WHITE BLOOD COUNT (AUTO) 11.6 K/uL (4.8-10.8)
[2019-10-30 07:48] LABS: ALBUMIN 2.1 g/dL (3.4-4.8); CALCIUM 8.2 mg/dL (8.4-11.0); CREATININE 0.54 mg/dL (0.55-1.30); POTASSIUM 3.5 mmol/L (3.5-5.1); TOTAL BILIRUBIN 0.3 mg/dL (0.0-1.0)
[2019-10-30 08:00] VITALS: BP_SYST 108
[2019-10-30] MEDS: BACLOFEN 10 MG TABLET GT SCH ×3 (09:59→21:09)
[2019-10-30] MEDS: TAMSULOSIN HCL 0.4 MG CAP GT SCH ×2 (09:59→21:10)
[2019-10-30] MEDS: TERAZOSIN HCL 5 MG CAPSULE (HYTRIN) GT SCH ×2 (10:00→21:00)
[2019-10-30] MEDS: POTASSIUM CHLORIDE 20 MEQ/PKT PACKET GT SCH ×2 (10:01→21:07)
[2019-10-30] MEDS: LINEZOLID 300 ML IV SCH ×2 (10:01→21:10)
[2019-10-30] MEDS: CHOLECALCIFEROL (VITAMIN D3) 2,000 UNIT TABLET GT SCH (10:01)
[2019-10-30] MEDS: levETIRAcetam 500 MG TABLET PO SCH ×2 (10:02→21:07)
[2019-10-30] MEDS: CHLORHEXIDINE GLUCONATE 15 ML/DOSE, 480 ML MM SCH ×2 (10:02→21:11)
[2019-10-30] MEDS: APIXABAN 2.5 MG TABLET GT SCH ×2 (10:03→21:07)
[2019-10-30 12:33] VITALS: BP_SYST 137
[2019-10-30 16:41] VITALS: BP_SYST 161
[2019-10-30 20:00] VITALS: BP_SYST 100
[2019-10-31] MEDS: PEG 400/HYPROMELLOSE/GLYCERIN 15 ML DROPS EACH EYE SCH ×4 (00:31→18:11)
[2019-10-31] MEDS: LR 1,000 ML IV SCH ×3 (00:33→21:51)
[2019-10-31] MEDS: PIPERACILLIN/TAZO 3.375/DEX-IS 50 ML IV SCH ×4 (00:37→18:11)
[2019-10-31 00:48] VITALS: BP_SYST 99
[2019-10-31] MEDS: IPRATROPIUM/ALBUTEROL SULFATE 3 ML AMPUL.NEB (DUONEB) IH SCH ×6 (03:53→23:02)
[2019-10-31] MEDS: GABAPENTIN 100 MG CAPSULE GT SCH ×3 (06:32→21:52)
[2019-10-31 07:04] LABS: BASOPHILS % (AUTO) 0.5 % (0.0-2.0); EOSINOPHILS # (AUTO) 0.1 K/uL (0.0-0.4); EOSINOPHILS % (AUTO) 1.3 % (0.0-4.0); HEMATOCRIT 31.7 % (36-54); HEMOGLOBIN 10.5 g/dL (14.0-18.0); LYMPHOCYTES # (AUTO) 0.7 K/uL (1.0-5.5); LYMPHOCYTES % (AUTO) 10.1 % (20.5-51.5); MEAN CORPUSCULAR HEMOGLOBIN 32 pg (27-31); MEAN CORPUSCULAR HGB CONC 33 % (32-36); MEAN CORPUSCULAR VOLUME 95 fL (79.0-98.0); MONOCYTES # (AUTO) 0.6 K/uL (0.0-1.0); MONOCYTES % (AUTO) 8.3 % (1.7-9.3); NEUTROPHILS # (AUTO) 5.6 K/uL (1.8-7.7); NEUTROPHILS % (AUTO) 79.8 % (40.0-70.0); PLATELET COUNT (AUTO) 224 K/uL (130-430); RED BLOOD CELL COUNT(AUTO) 3.34 MIL/uL (4.2-6.2); RED CELL DISTRIBUTION WIDTH 14.6 % (9.0-15.0)
[2019-10-31 07:13] LABS: CALCIUM 7.9 mg/dL (8.4-11.0); CREATININE 0.51 mg/dL (0.55-1.30); POTASSIUM 3.8 mmol/L (3.5-5.1)
[2019-10-31 08:00] VITALS: BP_SYST 127
[2019-10-31] MEDS: CHOLECALCIFEROL (VITAMIN D3) 2,000 UNIT TABLET GT SCH (08:44)
[2019-10-31] MEDS: BACLOFEN 10 MG TABLET GT SCH ×3 (08:44→21:52)
[2019-10-31] MEDS: TAMSULOSIN HCL 0.4 MG CAP GT SCH ×2 (08:44→21:51)
[2019-10-31] MEDS: POTASSIUM CHLORIDE 20 MEQ/PKT PACKET GT SCH ×2 (08:44→21:51)
[2019-10-31] MEDS: levETIRAcetam 500 MG TABLET PO SCH ×2 (08:44→21:53)
[2019-10-31] MEDS: APIXABAN 2.5 MG TABLET GT SCH ×2 (08:45→21:53)
[2019-10-31] MEDS: LINEZOLID 300 ML IV SCH (08:49)
[2019-10-31] MEDS: CHLORHEXIDINE GLUCONATE 15 ML/DOSE, 480 ML MM SCH ×2 (08:50→21:55)
[2019-10-31] MEDS: TERAZOSIN HCL 5 MG CAPSULE (HYTRIN) GT SCH ×2 (08:51→21:52)
[2019-10-31 12:54] VITALS: BP_SYST 104
[2019-10-31] MEDS: BALSAM PERU/CASTOR OIL 60 GM OINT...G. TP SCH (15:37)
[2019-10-31] MEDS ORDERED: PIPE4.5F2 IV (16:34)
[2019-10-31] MEDS ORDERED: APIX2.5T GT (16:34)
[2019-10-31 16:55] VITALS: BP_SYST 115
[2019-10-31] MEDS: MULTIVITAMINS TAB 1 TABLET GT SCH (21:52)
[2019-11-01 00:18] VITALS: BP_SYST 103
[2019-11-01] MEDS: PIPERACILLIN/TAZO 3.375/DEX-IS 50 ML IV SCH ×3 (01:51→12:08)
[2019-11-01] MEDS: PEG 400/HYPROMELLOSE/GLYCERIN 15 ML DROPS EACH EYE SCH ×5 (01:52→23:01)
[2019-11-01] MEDS: IPRATROPIUM/ALBUTEROL SULFATE 3 ML AMPUL.NEB (DUONEB) IH SCH ×6 (03:05→22:57)
[2019-11-01] MEDS: GABAPENTIN 100 MG CAPSULE GT SCH ×3 (05:47→22:52)
[2019-11-01 08:13] VITALS: BP_SYST 103
[2019-11-01] MEDS: BACLOFEN 10 MG TABLET GT SCH ×3 (09:04→20:29)
[2019-11-01] MEDS: POTASSIUM CHLORIDE 20 MEQ/PKT PACKET GT SCH ×2 (09:04→20:29)
[2019-11-01] MEDS: MULTIVITAMINS TAB 1 TABLET GT SCH ×2 (09:04→20:33)
[2019-11-01] MEDS: CHOLECALCIFEROL (VITAMIN D3) 2,000 UNIT TABLET GT SCH (09:04)
[2019-11-01] MEDS: levETIRAcetam 500 MG TABLET PO SCH ×2 (09:04→20:27)
[2019-11-01] MEDS: TAMSULOSIN HCL 0.4 MG CAP GT SCH ×2 (09:05→20:27)
[2019-11-01] MEDS: TERAZOSIN HCL 5 MG CAPSULE (HYTRIN) GT SCH ×2 (09:05→20:29)
[2019-11-01] MEDS: APIXABAN 2.5 MG TABLET GT SCH ×2 (09:06→20:32)
[2019-11-01] MEDS: LR 1,000 ML IV SCH ×2 (09:07→18:01)
[2019-11-01] MEDS: CHLORHEXIDINE GLUCONATE 15 ML/DOSE, 480 ML MM SCH ×2 (12:09→20:56)
[2019-11-01] MEDS: BALSAM PERU/CASTOR OIL 60 GM OINT...G. TP SCH (12:10)
[2019-11-01 13:01] VITALS: BP_SYST 106
[2019-11-01 16:28] VITALS: BP_SYST 115
[2019-11-01 20:00] VITALS: BP_SYST 108
[2019-11-01] MEDS ORDERED: cefTRIAXone 1 GM in D5W 50 ML IV SCH (20:00)
[2019-11-02] VITALS: BP_SYST 116
[2019-11-02] MEDS: IPRATROPIUM/ALBUTEROL SULFATE 3 ML AMPUL.NEB (DUONEB) IH SCH ×3 (03:28→11:10)
[2019-11-02] MEDS: PEG 400/HYPROMELLOSE/GLYCERIN 15 ML DROPS EACH EYE SCH ×2 (05:30→12:06)
[2019-11-02] MEDS: GABAPENTIN 100 MG CAPSULE GT SCH (05:31)
[2019-11-02] MEDS: LR 1,000 ML IV SCH (05:31)
[2019-11-02 08:45] VITALS: BP_SYST 134
[2019-11-02] MEDS: TERAZOSIN HCL 5 MG CAPSULE (HYTRIN) GT SCH (09:57)
[2019-11-02] MEDS: APIXABAN 2.5 MG TABLET GT SCH (09:58)
[2019-11-02] MEDS: BACLOFEN 10 MG TABLET GT SCH (09:58)
[2019-11-02] MEDS: TAMSULOSIN HCL 0.4 MG CAP GT SCH (09:58)
[2019-11-02] MEDS: POTASSIUM CHLORIDE 20 MEQ/PKT PACKET GT SCH (10:00)
[2019-11-02] MEDS: levETIRAcetam 500 MG TABLET PO SCH (10:00)
[2019-11-02] MEDS: CHLORHEXIDINE GLUCONATE 15 ML/DOSE, 480 ML MM SCH (10:00)
[2019-11-02] MEDS: MULTIVITAMINS TAB 1 TABLET GT SCH (10:00)
[2019-11-02] MEDS: CHOLECALCIFEROL (VITAMIN D3) 2,000 UNIT TABLET GT SCH (10:00)
[2019-11-02] MEDS: BALSAM PERU/CASTOR OIL 60 GM OINT...G. TP SCH (10:01)
[2019-11-02 12:35] VITALS: BP_SYST 116
[2019-11-02 14:01] VITALS: BP_SYST 116
== END 2019-11-02 16:51 | DRG 720 ==
LOC: SED 22:35 → STU 10-29 00:34
PROVIDERS: ADMIT Internal Medicine; ATTEND Internal Medicine
DX: A41.59 Other Gram-negative sepsis (principal); E43 Unspecified severe protein-calorie malnutrition; G82.50 Quadriplegia, unspecified; N30.80 Other cystitis without hematuria; Z20.828 Contact with and (suspected) exposure to other viral communicable diseases; I10 Essential (primary) hypertension; H54.61 Unqualified visual loss, right eye, normal vision left eye; G40.909 Epilepsy, unspecified, not intractable, without status epilepticus; G46.3 Brain stem stroke syndrome; Z66 Do not resuscitate; J69.0 Pneumonitis due to inhalation of food and vomit; N20.0 Calculus of kidney; G93.1 Anoxic brain damage, not elsewhere classified; N31.9 Neuromuscular dysfunction of bladder, unspecified; Z86.718 Personal history of other venous thrombosis and embolism; Z93.1 Gastrostomy status; Z79.01 Long term (current) use of anticoagulants; Z79.82 Long term (current) use of aspirin; Z68.21 Body mass index [BMI] 21.0-21.9, adult; Z79.899 Other long term (current) drug therapy; Z86.73 Personal history of transient ischemic attack (TIA), and cerebral infarction without residual deficits; J96.20 Acute and chronic respiratory failure, unspecified whether with hypoxia or hypercapnia
CPT/HCPCS: 36415; 36600; 71045; 80048; 80053; 81000-TC; 82550-TC; 82728; 82803-TC; 83605; 83615-TC; 83880; 84484; 85007; 85025; 85027; 85379; 85384-TC; 85610-TC; 85730-TC; 86140; 87040-TC; 87070-TC; 87081; 87086; 87186-TC; 87205-TC; 94640; 94760; 96365; 96366; 96367; 99291; A6209; G0378; J0696; J1956; J2020; J2543; J3370; J7050; J7060; J7120; U0003-CS

== ENCOUNTER 2019-11-15 09:54 | Inpatient (IN) | payer MEDICAID, SELFPAY ==
[~2019-11-15] VITALS: Ht 177.8 cm; Wt 65.8 kg
[~2019-11-15 09:54] MED LIST changes: +APIX2.5T GT; -DOXY100C PO; -MERI500 IVPB; +PIPE4.5F2 IV; -RIVA20TA GT; +[UNRECOGNIZED DRUG - CODE] GT
[2019-11-15 10:28] VITALS: BP_SYST 128
[2019-11-15 10:42] LABS: BASOPHILS # (AUTO) 0.1 K/uL (0.0-0.2); BASOPHILS % (AUTO) 0.6 % (0.0-2.0); EOSINOPHILS # (AUTO) 0.2 K/uL (0.0-0.4); EOSINOPHILS % (AUTO) 1.2 % (0.0-4.0); HEMATOCRIT 38.7 % (36-54); HEMOGLOBIN 12.9 g/dL (14.0-18.0); LYMPHOCYTES # (AUTO) 0.6 K/uL (1.0-5.5); LYMPHOCYTES % (AUTO) 4.8 % (20.5-51.5); MEAN CORPUSCULAR HEMOGLOBIN 31 pg (27-31); MEAN CORPUSCULAR HGB CONC 33 % (32-36); MEAN CORPUSCULAR VOLUME 92 fL (79.0-98.0); MONOCYTES # (AUTO) 0.7 K/uL (0.0-1.0); MONOCYTES % (AUTO) 5.7 % (1.7-9.3); NEUTROPHILS # (AUTO) 11.4 K/uL (1.8-7.7); NEUTROPHILS % (AUTO) 87.7 % (40.0-70.0); PLATELET COUNT (AUTO) 344 K/uL (130-430); RED CELL DISTRIBUTION WIDTH 14.9 % (9.0-15.0); WHITE BLOOD COUNT (AUTO) 12.9 K/uL (4.8-10.8)
[2019-11-15 10:45] LABS: BILIRUBIN,URINE NEGATIVE (NEGATIVE); BLOOD, URINE 3+ (NEGATIVE); CLARITY/URINE SL CLOUDY (CLEAR); COLOR,URINE YELLOW (YELLOW); GLUCOSE,URINE NEGATIVE (NEGATIVE); KETONES,URINE NEGATIVE (NEGATIVE); LEUKOCYTE ESTERASE ,URINE 3+ (NEGATIVE); NITRITE, URINE NEGATIVE (NEGATIVE); PH,URINE 6.5 (5.0-8.0); PROTEIN URINE 1+ (NEGATIVE); UROBILINOGEN,URINE 0.2 (0.2-1.0)
[2019-11-15 10:52] LABS: POTASSIUM 4.3 mmol/L (3.5-5.1)
[2019-11-15 10:53] LABS: CALCIUM 8.6 mg/dL (8.4-11.0); CREATININE 0.55 mg/dL (0.55-1.30)
[2019-11-15 10:57] LABS: ALBUMIN 2.7 g/dL (3.4-4.8); TOTAL BILIRUBIN 0.4 mg/dL (0.0-1.0)
[2019-11-15 11:01] LABS: INR 1.1 (0.80-1.20); PROTHROMBIN TIME 11.5 SECS (9.5-12.5)
[2019-11-15 11:04] LABS: C-REACTIVE PROTEIN QUANT 12.3 mg/dL (0-0.5)
[2019-11-15 11:09] LABS: BACTERIA,URINE RARE /HPF (None Seen); MUCUS,URINE 1+ /LPF (None Seen); RBC,URINE 50-80 /HPF (0-3); WBC,URINE 50-80 /HPF (0-3); YEAST,URINE Moderate /HPF (None Seen)
[2019-11-15] MEDS ORDERED: cefTRIAXone 1 GM VIAL IM ONE (12:00)
[2019-11-15] MEDS ORDERED: NACL 0.9% 1,000 ML IV ONE (12:00)
[2019-11-15] MEDS ORDERED: AZITHROMYCIN 500 MG in NS 250 ML IV ONE (12:15)
[2019-11-15] MEDS ORDERED: IPRATROPIUM/ALBUTEROL SULFATE 3 ML AMPUL.NEB (DUONEB) INH ONE (12:15)
[2019-11-15] MEDS ORDERED: PIPERACILLIN/TAZO 4.5 GM in NS 100 ML IV ONE (12:15)
[2019-11-15] MEDS ORDERED: AZITHROMYCIN 500 MG/VIAL (ZITHROMAX) IV ONE (12:43)
[2019-11-15] MEDS ORDERED: PIPERACILLIN/TAZOBACTAM 4.5 GM/VIAL (ZOSYN) IV ONE (12:43)
[2019-11-15] MEDS ORDERED: TAMSULOSIN HCL 0.4 MG CAP GT ONE (14:15)
[2019-11-15] MEDS: NACL 0.9% 1,000 ML IV SCH ×2 (14:40→22:42)
[2019-11-15 14:45] VITALS: BP_SYST 102
[2019-11-15] MEDS ORDERED: BACLOFEN 10 MG TABLET GT ONE (15:00)
[2019-11-15] MEDS: IPRATROPIUM/ALBUTEROL SULFATE 3 ML AMPUL.NEB (DUONEB) IH SCH ×3 (15:47→23:39)
[2019-11-15 16:00] VITALS: BP_SYST 105
[2019-11-15] MEDS ORDERED: DEX IS PIGGYBACK IV SCH ×2 (16:00→22:00)
[2019-11-15] MEDS ORDERED: TAZOBACTAM IV SCH ×2 (16:00→22:00)
[2019-11-15] MEDS ORDERED: PIPERACILLIN IV SCH ×2 (16:00→22:00)
[2019-11-15] MEDS: PEG 400/HYPROMELLOSE/GLYCERIN 15 ML DROPS EACH EYE SCH (17:41)
[2019-11-15 20:20] VITALS: BP_SYST 121
[2019-11-15] MEDS: BACLOFEN 10 MG TABLET GT SCH (22:10)
[2019-11-15] MEDS: PIPERACILLIN/TAZO 4.5GM/DEX-IS 100 ML IV SCH (22:10)
[2019-11-15] MEDS: GABAPENTIN 100 MG CAPSULE GT SCH (22:11)
[2019-11-15] MEDS: TAMSULOSIN HCL 0.4 MG CAP GT SCH (22:11)
[2019-11-15] MEDS: TERAZOSIN HCL 5 MG CAPSULE (HYTRIN) GT SCH (22:11)
[2019-11-15] MEDS: POTASSIUM CHLORIDE 20 MEQ/PKT PACKET GT SCH (22:11)
[2019-11-15] MEDS: LevETIRAcetam 500 MG/5 ML UDC ORAL LIQUID PO SCH (22:12)
[2019-11-15] MEDS: CHLORHEXIDINE GLUCONATE 15 ML/DOSE, 480 ML MM SCH (22:13)
[2019-11-15] MEDS: APIXABAN 2.5 MG TABLET PO SCH (22:14)
[2019-11-16] MEDS: PEG 400/HYPROMELLOSE/GLYCERIN 15 ML DROPS EACH EYE SCH ×4 (00:41→17:33)
[2019-11-16 01:35] VITALS: BP_SYST 102
[2019-11-16] MEDS: IPRATROPIUM/ALBUTEROL SULFATE 3 ML AMPUL.NEB (DUONEB) IH SCH ×6 (03:57→23:23)
[2019-11-16] MEDS: PIPERACILLIN/TAZO 4.5GM/DEX-IS 100 ML IV SCH ×3 (05:54→22:08)
[2019-11-16] MEDS: GABAPENTIN 100 MG CAPSULE GT SCH ×3 (05:54→22:07)
[2019-11-16 06:24] LABS: BASOPHILS # (AUTO) 0.1 K/uL (0.0-0.2); BASOPHILS % (AUTO) 0.8 % (0.0-2.0); EOSINOPHILS # (AUTO) 0.4 K/uL (0.0-0.4); EOSINOPHILS % (AUTO) 3.1 % (0.0-4.0); HEMATOCRIT 33.6 % (36-54); HEMOGLOBIN 11.1 g/dL (14.0-18.0); LYMPHOCYTES # (AUTO) 0.8 K/uL (1.0-5.5); LYMPHOCYTES % (AUTO) 6.8 % (20.5-51.5); MEAN CORPUSCULAR HEMOGLOBIN 31 pg (27-31); MEAN CORPUSCULAR HGB CONC 33 % (32-36); MEAN CORPUSCULAR VOLUME 93 fL (79.0-98.0); MONOCYTES # (AUTO) 0.8 K/uL (0.0-1.0); MONOCYTES % (AUTO) 6.8 % (1.7-9.3); NEUTROPHILS # (AUTO) 9.8 K/uL (1.8-7.7); NEUTROPHILS % (AUTO) 82.5 % (40.0-70.0); PLATELET COUNT (AUTO) 309 K/uL (130-430); RED BLOOD CELL COUNT(AUTO) 3.63 MIL/uL (4.2-6.2); WHITE BLOOD COUNT (AUTO) 11.9 K/uL (4.8-10.8)
[2019-11-16 06:43] LABS: ALBUMIN 2.1 g/dL (3.4-4.8); CALCIUM 8.1 mg/dL (8.4-11.0); CREATININE 0.46 mg/dL (0.55-1.30); PHOSPHORUS 2.9 mg/dL (2.7-4.5); POTASSIUM 3.9 mmol/L (3.5-5.1); TOTAL BILIRUBIN 0.4 mg/dL (0.0-1.0)
[2019-11-16] MEDS: NACL 0.9% 1,000 ML IV SCH ×2 (08:03→13:31)
[2019-11-16 08:30] VITALS: BP_SYST 124
[2019-11-16] MEDS: POTASSIUM CHLORIDE 20 MEQ/PKT PACKET GT SCH ×2 (09:33→22:18)
[2019-11-16] MEDS: LevETIRAcetam 500 MG/5 ML UDC ORAL LIQUID PO SCH ×2 (09:33→22:08)
[2019-11-16] MEDS: TERAZOSIN HCL 5 MG CAPSULE (HYTRIN) GT SCH ×2 (09:33→22:18)
[2019-11-16] MEDS: BACLOFEN 10 MG TABLET GT SCH ×3 (09:33→22:07)
[2019-11-16] MEDS: TAMSULOSIN HCL 0.4 MG CAP GT SCH ×2 (09:33→22:17)
[2019-11-16] MEDS: CHOLECALCIFEROL (VITAMIN D3) 2,000 UNIT TABLET GT SCH (09:33)
[2019-11-16] MEDS: APIXABAN 2.5 MG TABLET PO SCH ×2 (09:35→22:11)
[2019-11-16] MEDS: CHLORHEXIDINE GLUCONATE 15 ML/DOSE, 480 ML MM SCH ×2 (09:38→22:09)
[2019-11-16 12:21] VITALS: BP_SYST 117
[2019-11-16 17:34] VITALS: BP_SYST 117
[2019-11-16 20:00] VITALS: BP_SYST 115
[2019-11-17] VITALS: BP_SYST 108
[2019-11-17 00:26] LABS: BILIRUBIN,URINE NEGATIVE (NEGATIVE); BLOOD, URINE 3+ (NEGATIVE); CLARITY/URINE CLEAR (CLEAR); COLOR,URINE YELLOW (YELLOW); GLUCOSE,URINE NEGATIVE (NEGATIVE); KETONES,URINE NEGATIVE (NEGATIVE); LEUKOCYTE ESTERASE ,URINE 1+ (NEGATIVE); NITRITE, URINE NEGATIVE (NEGATIVE); PROTEIN URINE NEGATIVE (NEGATIVE); UROBILINOGEN,URINE 0.2 (0.2-1.0)
[2019-11-17 00:32] LABS: BACTERIA,URINE FEW /HPF (None Seen); RBC,URINE 50-80 /HPF (0-3)
[2019-11-17] MEDS: PEG 400/HYPROMELLOSE/GLYCERIN 15 ML DROPS EACH EYE SCH ×3 (00:47→12:21)
[2019-11-17] MEDS: IPRATROPIUM/ALBUTEROL SULFATE 3 ML AMPUL.NEB (DUONEB) IH SCH ×6 (03:55→23:14)
[2019-11-17] MEDS: GABAPENTIN 100 MG CAPSULE GT SCH ×3 (05:42→21:25)
[2019-11-17] MEDS: PIPERACILLIN/TAZO 4.5GM/DEX-IS 100 ML IV SCH (05:43)
[2019-11-17 06:18] LABS: BASOPHILS # (AUTO) 0.1 K/uL (0.0-0.2); BASOPHILS % (AUTO) 1.4 % (0.0-2.0); EOSINOPHILS # (AUTO) 0.6 K/uL (0.0-0.4); EOSINOPHILS % (AUTO) 7.2 % (0.0-4.0); HEMATOCRIT 36.1 % (36-54); HEMOGLOBIN 11.9 g/dL (14.0-18.0); LYMPHOCYTES # (AUTO) 1.3 K/uL (1.0-5.5); LYMPHOCYTES % (AUTO) 15.1 % (20.5-51.5); MEAN CORPUSCULAR HEMOGLOBIN 31 pg (27-31); MEAN CORPUSCULAR HGB CONC 33 % (32-36); MEAN CORPUSCULAR VOLUME 93 fL (79.0-98.0); MONOCYTES # (AUTO) 0.7 K/uL (0.0-1.0); MONOCYTES % (AUTO) 8.1 % (1.7-9.3); NEUTROPHILS # (AUTO) 5.9 K/uL (1.8-7.7); NEUTROPHILS % (AUTO) 68.2 % (40.0-70.0); PLATELET COUNT (AUTO) 319 K/uL (130-430); RED BLOOD CELL COUNT(AUTO) 3.88 MIL/uL (4.2-6.2); RED CELL DISTRIBUTION WIDTH 15.3 % (9.0-15.0); WHITE BLOOD COUNT (AUTO) 8.6 K/uL (4.8-10.8)
[2019-11-17 06:21] LABS: CALCIUM 8.6 mg/dL (8.4-11.0); CREATININE 0.47 mg/dL (0.55-1.30)
[2019-11-17 08:00] VITALS: BP_SYST 117
[2019-11-17] MEDS: CHLORHEXIDINE GLUCONATE 15 ML/DOSE, 480 ML MM SCH ×2 (09:53→21:33)
[2019-11-17] MEDS: CHOLECALCIFEROL (VITAMIN D3) 2,000 UNIT TABLET GT SCH (09:54)
[2019-11-17] MEDS: POTASSIUM CHLORIDE 20 MEQ/PKT PACKET GT SCH ×2 (09:54→21:24)
[2019-11-17] MEDS: BACLOFEN 10 MG TABLET GT SCH ×3 (09:54→21:25)
[2019-11-17] MEDS: BALSAM PERU/CASTOR OIL 60 GM OINT...G. TP SCH (09:54)
[2019-11-17] MEDS: LevETIRAcetam 500 MG/5 ML UDC ORAL LIQUID PO SCH ×2 (09:54→21:25)
[2019-11-17] MEDS: TAMSULOSIN HCL 0.4 MG CAP GT SCH ×2 (09:55→21:25)
[2019-11-17] MEDS: APIXABAN 2.5 MG TABLET PO SCH ×2 (09:57→21:31)
[2019-11-17] MEDS: TERAZOSIN HCL 5 MG CAPSULE (HYTRIN) GT SCH ×2 (09:58→21:00)
[2019-11-17] MEDS: cefTRIAXone 1 GM in D5W 50 ML IV SCH (12:30)
[2019-11-17 12:51] VITALS: BP_SYST 111
[2019-11-17] MEDS: FLUCONAZOLE 100 mg/ NS 50 ML IV SCH (13:10)
[2019-11-17 17:06] VITALS: BP_SYST 108
[2019-11-17 20:00] VITALS: BP_SYST 110
[2019-11-18] VITALS: BP_SYST 104
[2019-11-18] MEDS: PEG 400/HYPROMELLOSE/GLYCERIN 15 ML DROPS EACH EYE SCH ×4 (00:58→17:39)
[2019-11-18] MEDS: IPRATROPIUM/ALBUTEROL SULFATE 3 ML AMPUL.NEB (DUONEB) IH SCH ×4 (03:59→15:25)
[2019-11-18] MEDS: GABAPENTIN 100 MG CAPSULE GT SCH ×2 (06:51→14:52)
[2019-11-18 08:00] VITALS: BP_SYST 111
[2019-11-18] MEDS: BACLOFEN 10 MG TABLET GT SCH ×2 (09:36→14:52)
[2019-11-18] MEDS: TAMSULOSIN HCL 0.4 MG CAP GT SCH (09:37)
[2019-11-18] MEDS: POTASSIUM CHLORIDE 20 MEQ/PKT PACKET GT SCH (09:37)
[2019-11-18] MEDS: TERAZOSIN HCL 5 MG CAPSULE (HYTRIN) GT SCH (09:37)
[2019-11-18] MEDS: CHOLECALCIFEROL (VITAMIN D3) 2,000 UNIT TABLET GT SCH (09:38)
[2019-11-18] MEDS: LevETIRAcetam 500 MG/5 ML UDC ORAL LIQUID PO SCH (09:39)
[2019-11-18] MEDS: BALSAM PERU/CASTOR OIL 60 GM OINT...G. TP SCH (09:39)
[2019-11-18] MEDS: APIXABAN 2.5 MG TABLET PO SCH (09:41)
[2019-11-18] MEDS: CHLORHEXIDINE GLUCONATE 15 ML/DOSE, 480 ML MM SCH (09:41)
[2019-11-18] MEDS: cefTRIAXone 1 GM in D5W 50 ML IV SCH (11:25)
[2019-11-18 12:40] VITALS: BP_SYST 106
[2019-11-18] MEDS: FLUCONAZOLE 100 mg/ NS 50 ML IV SCH (12:41)
[2019-11-18 16:32] VITALS: BP_SYST 110
[2019-11-18 17:45] VITALS: BP_SYST 110
[2019-11-18] MEDS ORDERED: APIXABAN 2.5 MG TABLET PO SCH (21:00)
== END 2019-11-18 18:15 | DRG 720 ==
LOC: SED 09:54 → STU 12:03
PROVIDERS: ADMIT Internal Medicine; ATTEND Internal Medicine
DX: A41.9 Sepsis, unspecified organism (principal); E43 Unspecified severe protein-calorie malnutrition; N30.91 Cystitis, unspecified with hematuria; G93.1 Anoxic brain damage, not elsewhere classified; G82.50 Quadriplegia, unspecified; Z20.828 Contact with and (suspected) exposure to other viral communicable diseases; H54.61 Unqualified visual loss, right eye, normal vision left eye; N31.9 Neuromuscular dysfunction of bladder, unspecified; Z66 Do not resuscitate; N20.0 Calculus of kidney; G46.3 Brain stem stroke syndrome; G40.909 Epilepsy, unspecified, not intractable, without status epilepticus; L89.159 Pressure ulcer of sacral region, unspecified stage; J96.21 Acute and chronic respiratory failure with hypoxia; J69.0 Pneumonitis due to inhalation of food and vomit; Z74.01 Bed confinement status; Z79.82 Long term (current) use of aspirin; Z79.899 Other long term (current) drug therapy; Z93.0 Tracheostomy status; Z93.1 Gastrostomy status; Z68.20 Body mass index [BMI] 20.0-20.9, adult; B37.49 Other urogenital candidiasis
CPT/HCPCS: 36415; 36600; 71045; 80048; 80053; 81000-TC; 82550-TC; 82728; 82803-TC; 83605; 83615-TC; 83735-TC; 83880; 84100-TC; 84484; 85025; 85379; 85384-TC; 85610-TC; 85730-TC; 86140; 86886; 86900; 86901; 87040-TC; 87081; 87086; 93005; 94640; 94760; 96365; 96367; 99291; G0378; J0456; J0696; J1450; J2543; J7030; J7060

== ENCOUNTER 2020-02-25 20:28 | Inpatient (IN) | payer MEDICAID, SELFPAY ==
[~2020-02-25] VITALS: Ht 177.8 cm; Wt 67.2 kg
[~2020-02-25 20:28] MED LIST changes: -APIX2.5T GT; +LEVE500T9 GT; -LEVE500T9 PO
[2020-02-25 20:35] VITALS: BP_SYST 118
[2020-02-25 21:21] LABS: BASOPHILS % (AUTO) 0.1 % (0.0-2.0); EOSINOPHILS % (AUTO) 0.1 % (0.0-4.0); HEMATOCRIT 43.9 % (36-54); HEMOGLOBIN 14.4 g/dL (14.0-18.0); LYMPHOCYTES # (AUTO) 0.5 K/uL (1.0-5.5); LYMPHOCYTES % (AUTO) 6.6 % (20.5-51.5); MEAN CORPUSCULAR HEMOGLOBIN 31 pg (27-31); MEAN CORPUSCULAR HGB CONC 33 % (32-36); MEAN CORPUSCULAR VOLUME 93 fL (79.0-98.0); MONOCYTES # (AUTO) 0.7 K/uL (0.0-1.0); MONOCYTES % (AUTO) 9.6 % (1.7-9.3); NEUTROPHILS # (AUTO) 5.9 K/uL (1.8-7.7); NEUTROPHILS % (AUTO) 83.6 % (40.0-70.0); PLATELET COUNT (AUTO) 220 K/uL (130-430); RED BLOOD CELL COUNT(AUTO) 4.73 MIL/uL (4.2-6.2); RED CELL DISTRIBUTION WIDTH 14.3 % (9.0-15.0)
[2020-02-25 21:58] LABS: BILIRUBIN,URINE NEGATIVE (NEGATIVE); BLOOD, URINE 2+ (NEGATIVE); CLARITY/URINE SL CLOUDY (CLEAR); COLOR,URINE YELLOW (YELLOW); GLUCOSE,URINE NEGATIVE (NEGATIVE); KETONES,URINE NEGATIVE (NEGATIVE); LEUKOCYTE ESTERASE ,URINE 3+ (NEGATIVE); NITRITE, URINE POSITIVE (NEGATIVE); PH,URINE 8.5 (5.0-8.0); PROTEIN URINE 1+ (NEGATIVE); UROBILINOGEN,URINE 0.2 (0.2-1.0)
[2020-02-25 22:23] LABS: CALCIUM 8.3 mg/dL (8.4-11.0); CREATININE 0.65 mg/dL (0.55-1.30); POTASSIUM 4.5 mmol/L (3.5-5.1)
[2020-02-25 22:26] LABS: WBC,URINE 20-50 /HPF (0-3)
[2020-02-25 22:27] LABS: BACTERIA,URINE MODERATE /HPF (None Seen)
[2020-02-25 22:29] LABS: ALBUMIN 2.4 g/dL (3.4-4.8); TOTAL BILIRUBIN 0.2 mg/dL (0.0-1.0)
[2020-02-25] MEDS ORDERED: cefTRIAXone 1 GM IVPB PREMIX 50 ML IV ONE (23:00)
[2020-02-25] MEDS ORDERED: TRAM100T28 GT (23:12)
[2020-02-25] MEDS ORDERED: APIX2.5T GT (23:12)
[2020-02-25] MEDS ORDERED: ZINC50TA69 GT (23:12)
[2020-02-25] MEDS ORDERED: VITA80008 GT (23:12)
[2020-02-25] MEDS ORDERED: DEXAMETHASONE SOD PHOSPHATE 10 MG/ML VIAL IVP ONE (23:15)
[2020-02-25] MEDS ORDERED: AZITHROMYCIN 500 MG in NS 250 ML IV ONE (23:15)
[2020-02-25] MEDS ORDERED: PIPERACILLIN/TAZO 3.375 GM in NS 50 ML IV ONE (23:15)
[2020-02-25] MEDS ORDERED: PIPERACILLIN/TAZOBACTAM 3.375 GM/VIAL (ZOSYN) IV ONE (23:29)
[2020-02-25] MEDS ORDERED: AZITHROMYCIN 500 MG/VIAL (ZITHROMAX) IV ONE (23:30)
[2020-02-26 03:27] VITALS: BP_SYST 106
[2020-02-26 08:00] VITALS: BP_SYST 120
[2020-02-26] MEDS: ALBUTEROL MDI INHALATION 8 GM INH INH SCH ×4 (10:08→21:50)
[2020-02-26] MEDS ORDERED: levETIRAcetam 500 MG TABLET GT ONE (10:30)
[2020-02-26] MEDS ORDERED: traMADol HCL HCL 50 MG TABLET (ULTRAM) GT PRN (10:30)
[2020-02-26] MEDS ORDERED: TAMSULOSIN HCL 0.4 MG CAP GT ONE (10:30)
[2020-02-26] MEDS ORDERED: ACETAMINOPHEN 325 MG TABLET GT PRN (10:30)
[2020-02-26] MEDS ORDERED: MAGNESIUM OXIDE 400 MG TABLET PO ONE (10:45)
[2020-02-26] MEDS: DEXAMETHASONE SOD PHOSPHATE 10 MG/ML VIAL IVP SCH (11:19)
[2020-02-26] MEDS: PEG 400/HYPROMELLOSE/GLYCERIN 15 ML DROPS EACH EYE SCH ×2 (12:00→17:09)
[2020-02-26 12:06] VITALS: BP_SYST 121
[2020-02-26] MEDS: GABAPENTIN 100 MG CAPSULE GT SCH ×2 (13:09→22:53)
[2020-02-26] MEDS: BACLOFEN 10 MG TABLET GT SCH ×2 (14:15→20:45)
[2020-02-26 14:51] VITALS: BP_SYST 121
[2020-02-26 16:00] VITALS: BP_SYST 139
[2020-02-26] MEDS: PIPERACILLIN/TAZO 3.375/DEX-IS 50 ML IV SCH (18:02)
[2020-02-26] MEDS: IPRATROPIUM/ALBUTEROL SULFATE 3 ML AMPUL.NEB (DUONEB) IH SCH (19:00)
[2020-02-26] MEDS: APIXABAN 2.5 MG TABLET GT SCH (20:45)
[2020-02-26] MEDS: AZITHROMYCIN 500 MG in D5W 250 ML IV SCH (20:45)
[2020-02-26] MEDS: ASCORBIC ACID 500 MG TABLET PO SCH (20:45)
[2020-02-26] MEDS: MUPIROCIN 1 GM OIN.PF.APP NS SCH ×2 (20:45)
[2020-02-26] MEDS: TAMSULOSIN HCL 0.4 MG CAP GT SCH (20:45)
[2020-02-26] MEDS: MAGNESIUM OXIDE 400 MG TABLET PO SCH (20:45)
[2020-02-26] MEDS: CHLORHEXIDINE GLUCONATE 15 ML/DOSE, 480 ML MM SCH (20:45)
[2020-02-26] MEDS: levETIRAcetam 500 MG TABLET GT SCH (20:45)
[2020-02-26] MEDS ORDERED: NON-FORMULARY MEDICATION (Amino Acids/Protein Hydrolys (Pro-Stat Max Liquid Packet) 30 ML) GT SCH (21:00)
[2020-02-26] MEDS ORDERED: AZITHROMYCIN 500 MG in NS 250 ML IV SCH (21:00)
[2020-02-26] MEDS ORDERED: APIXABAN 2.5 MG TABLET GT SCH (21:00)
[2020-02-27] VITALS: BP_SYST 113
[2020-02-27] MEDS: GABAPENTIN 100 MG CAPSULE GT SCH ×3 (06:51→21:52)
[2020-02-27] MEDS: PIPERACILLIN/TAZO 3.375/DEX-IS 50 ML IV SCH ×2 (06:52)
[2020-02-27] MEDS: PEG 400/HYPROMELLOSE/GLYCERIN 15 ML DROPS EACH EYE SCH ×5 (06:52→23:18)
[2020-02-27 07:24] LABS: BASOPHILS % (AUTO) 0.2 % (0.0-2.0); HEMATOCRIT 38.2 % (36-54); HEMOGLOBIN 12.8 g/dL (14.0-18.0); LYMPHOCYTES # (AUTO) 0.5 K/uL (1.0-5.5); LYMPHOCYTES % (AUTO) 8.1 % (20.5-51.5); MEAN CORPUSCULAR HEMOGLOBIN 31 pg (27-31); MEAN CORPUSCULAR HGB CONC 34 % (32-36); MEAN CORPUSCULAR VOLUME 91 fL (79.0-98.0); MONOCYTES # (AUTO) 0.8 K/uL (0.0-1.0); NEUTROPHILS # (AUTO) 5.2 K/uL (1.8-7.7); NEUTROPHILS % (AUTO) 79.7 % (40.0-70.0); PLATELET COUNT (AUTO) 325 K/uL (130-430); RED BLOOD CELL COUNT(AUTO) 4.18 MIL/uL (4.2-6.2); RED CELL DISTRIBUTION WIDTH 14.3 % (9.0-15.0); WHITE BLOOD COUNT (AUTO) 6.5 K/uL (4.8-10.8)
[2020-02-27 07:46] LABS: CALCIUM 8.2 mg/dL (8.4-11.0); CREATININE 0.51 mg/dL (0.55-1.30); POTASSIUM 4.1 mmol/L (3.5-5.1)
[2020-02-27 08:00] VITALS: BP_SYST 117
[2020-02-27] MEDS: MUPIROCIN 1 GM OIN.PF.APP NS SCH ×4 (09:00→21:52)
[2020-02-27] MEDS ORDERED: NON-FORMULARY MEDICATION (Zinc 50 MG) GT SCH (09:00)
[2020-02-27] MEDS ORDERED: VITAMIN A 10000 UNIT GT SCH (09:00)
[2020-02-27] MEDS: BACLOFEN 10 MG TABLET GT SCH ×3 (09:56→21:51)
[2020-02-27] MEDS: ASCORBIC ACID 500 MG TABLET PO SCH ×2 (09:57→21:52)
[2020-02-27] MEDS: levETIRAcetam 500 MG TABLET GT SCH ×2 (09:57→21:51)
[2020-02-27] MEDS: DOCUSATE SODIUM 100 MG CAPSULE PO SCH (09:57)
[2020-02-27] MEDS: MAGNESIUM OXIDE 400 MG TABLET PO SCH ×2 (09:57→21:52)
[2020-02-27] MEDS: CHLORHEXIDINE GLUCONATE 15 ML/DOSE, 480 ML MM SCH ×2 (09:58→21:52)
[2020-02-27] MEDS: DEXAMETHASONE SOD PHOSPHATE 10 MG/ML VIAL IVP SCH (09:58)
[2020-02-27] MEDS: TAMSULOSIN HCL 0.4 MG CAP GT SCH ×2 (09:58→21:51)
[2020-02-27] MEDS: CHOLECALCIFEROL (VITAMIN D3) 2,000 UNIT TABLET GT SCH (09:59)
[2020-02-27] MEDS ORDERED: CHOLECALCIFEROL (VITAMIN D-3) 400 UNIT TABLET ONE (10:01)
[2020-02-27] MEDS: ALBUTEROL MDI INHALATION 8 GM INH INH SCH ×4 (10:21→19:41)
[2020-02-27] MEDS: APIXABAN 2.5 MG TABLET GT SCH ×2 (10:21→21:52)
[2020-02-27] MEDS: IPRATROPIUM/ALBUTEROL SULFATE 3 ML AMPUL.NEB (DUONEB) IH SCH ×4 (12:15→23:00)
[2020-02-27] MEDS: cefTRIAXone 1 GM in D5W 50 ML IV SCH (13:05)
[2020-02-27 13:18] VITALS: BP_SYST 111
[2020-02-27 16:50] VITALS: BP_SYST 115; BP_SYST 152
[2020-02-27 20:00] VITALS: BP_SYST 126
[2020-02-27] MEDS: POTASSIUM CHLORIDE 20 MEQ/PKT PACKET GT SCH (21:51)
[2020-02-27] MEDS: AZITHROMYCIN 500 MG in D5W 250 ML IV SCH (21:52)
[2020-02-27 23:59] VITALS: BP_SYST 117
[2020-02-28 00:02] VITALS: BP_SYST 117
[2020-02-28] MEDS: IPRATROPIUM/ALBUTEROL SULFATE 3 ML AMPUL.NEB (DUONEB) IH SCH ×6 (03:00→23:00)
[2020-02-28] MEDS: GABAPENTIN 100 MG CAPSULE GT SCH ×3 (05:26→22:52)
[2020-02-28] MEDS: PEG 400/HYPROMELLOSE/GLYCERIN 15 ML DROPS EACH EYE SCH ×4 (05:26→23:46)
[2020-02-28 06:50] LABS: BASOPHILS % (AUTO) 0.1 % (0.0-2.0); HEMATOCRIT 36.2 % (36-54); HEMOGLOBIN 12.1 g/dL (14.0-18.0); LYMPHOCYTES # (AUTO) 0.5 K/uL (1.0-5.5); LYMPHOCYTES % (AUTO) 6.9 % (20.5-51.5); MEAN CORPUSCULAR HEMOGLOBIN 31 pg (27-31); MEAN CORPUSCULAR HGB CONC 34 % (32-36); MEAN CORPUSCULAR VOLUME 92 fL (79.0-98.0); MONOCYTES # (AUTO) 0.7 K/uL (0.0-1.0); MONOCYTES % (AUTO) 8.9 % (1.7-9.3); NEUTROPHILS # (AUTO) 6.4 K/uL (1.8-7.7); NEUTROPHILS % (AUTO) 84.1 % (40.0-70.0); PLATELET COUNT (AUTO) 356 K/uL (130-430); RED BLOOD CELL COUNT(AUTO) 3.94 MIL/uL (4.2-6.2); RED CELL DISTRIBUTION WIDTH 14.1 % (9.0-15.0); WHITE BLOOD COUNT (AUTO) 7.6 K/uL (4.8-10.8)
[2020-02-28] MEDS: ALBUTEROL MDI INHALATION 8 GM INH INH SCH ×3 (07:10→21:28)
[2020-02-28 07:23] LABS: CALCIUM 8.2 mg/dL (8.4-11.0); CREATININE 0.54 mg/dL (0.55-1.30)
[2020-02-28 08:00] VITALS: BP_SYST 122
[2020-02-28] MEDS: DOCUSATE SODIUM 100 MG CAPSULE PO SCH (09:00)
[2020-02-28] MEDS: MUPIROCIN 1 GM OIN.PF.APP NS SCH ×4 (09:00→20:30)
[2020-02-28] MEDS: BACLOFEN 10 MG TABLET GT SCH ×3 (09:51→20:30)
[2020-02-28] MEDS: TAMSULOSIN HCL 0.4 MG CAP GT SCH ×2 (09:51→20:30)
[2020-02-28] MEDS: levETIRAcetam 500 MG TABLET GT SCH ×2 (09:51→20:30)
[2020-02-28] MEDS: POTASSIUM CHLORIDE 20 MEQ/PKT PACKET GT SCH ×2 (09:51→20:30)
[2020-02-28] MEDS: DEXAMETHASONE SOD PHOSPHATE 10 MG/ML VIAL IVP SCH ×2 (09:52→22:53)
[2020-02-28] MEDS: ASCORBIC ACID 500 MG TABLET PO SCH ×2 (09:52→20:30)
[2020-02-28] MEDS: CHLORHEXIDINE GLUCONATE 15 ML/DOSE, 480 ML MM SCH ×2 (09:52→20:30)
[2020-02-28] MEDS: MAGNESIUM OXIDE 400 MG TABLET PO SCH ×2 (09:52→20:30)
[2020-02-28] MEDS: APIXABAN 2.5 MG TABLET GT SCH ×2 (09:53→21:30)
[2020-02-28] MEDS ORDERED: CHOLECALCIFEROL (VITAMIN D-3) 400 UNIT TABLET ONE (09:56)
[2020-02-28] MEDS: CHOLECALCIFEROL (VITAMIN D3) 2,000 UNIT TABLET GT SCH (10:16)
[2020-02-28] MEDS: cefTRIAXone 1 GM in D5W 50 ML IV SCH (11:52)
[2020-02-28 12:00] VITALS: BP_SYST 134
[2020-02-28] MEDS ORDERED: ACETAMINOPHEN 650 MG/20.3 ML UDC GT PRN (18:45)
[2020-02-28] MEDS ORDERED: MORPHINE 2 MG/ML INJ. SYRINGE IVP PRN (18:45)
[2020-02-28] MEDS ORDERED: PIPERACILLIN/TAZO 3.375/DEX-IS 50 ML IV SCH (18:45)
[2020-02-28] MEDS ORDERED: NALOXONE HCL 0.4 MG/ML AMP (NARCAN) IVP PRN ×2 (18:45)
[2020-02-28] MEDS ORDERED: IVERMECTIN 3 MG TABLET PO ONE (19:45)
[2020-02-28 20:00] VITALS: BP_SYST 160
[2020-02-28] MEDS: AZITHROMYCIN 500 MG in D5W 250 ML IV SCH (20:30)
[2020-02-28] MEDS: CEFEPIME 0.5 GM in D5W 50 ML IV SCH (20:30)
[2020-02-28] MEDS ORDERED: CEFEPIME 1 GM/VIAL (MAXIPIME) ONE (21:08)
[2020-02-28] MEDS ORDERED: AZITHROMYCIN 500 MG/VIAL (ZITHROMAX) IV ONE (21:08)
[2020-02-28] MEDS: MORPHINE 2 MG/ML INJ. SYRINGE IVP PRN (22:54)
[2020-02-29] MEDS: IPRATROPIUM/ALBUTEROL SULFATE 3 ML AMPUL.NEB (DUONEB) IH SCH ×4 (02:01→21:40)
[2020-02-29 06:21] LABS: BILIRUBIN,URINE NEGATIVE (NEGATIVE); BLOOD, URINE 2+ (NEGATIVE); CLARITY/URINE CLEAR (CLEAR); COLOR,URINE YELLOW (YELLOW); GLUCOSE,URINE NEGATIVE (NEGATIVE); KETONES,URINE NEGATIVE (NEGATIVE); LEUKOCYTE ESTERASE ,URINE NEGATIVE (NEGATIVE); NITRITE, URINE NEGATIVE (NEGATIVE); PROTEIN URINE NEGATIVE (NEGATIVE); UROBILINOGEN,URINE 0.2 (0.2-1.0)
[2020-02-29 06:49] LABS: BACTERIA,URINE FEW /HPF (None Seen); RBC,URINE 20-50 /HPF (0-3); WBC,URINE 0-3 /HPF (0-3)
[2020-02-29] MEDS: PEG 400/HYPROMELLOSE/GLYCERIN 15 ML DROPS EACH EYE SCH ×3 (06:55→19:30)
[2020-02-29] MEDS: GABAPENTIN 100 MG CAPSULE GT SCH ×3 (06:55→21:40)
[2020-02-29 08:13] LABS: BASOPHILS % (AUTO) 0.1 % (0.0-2.0); HEMATOCRIT 42.6 % (36-54); HEMOGLOBIN 14.1 g/dL (14.0-18.0); LYMPHOCYTES # (AUTO) 0.7 K/uL (1.0-5.5); LYMPHOCYTES % (AUTO) 4.8 % (20.5-51.5); MEAN CORPUSCULAR HEMOGLOBIN 31 pg (27-31); MEAN CORPUSCULAR HGB CONC 33 % (32-36); MEAN CORPUSCULAR VOLUME 92 fL (79.0-98.0); MONOCYTES # (AUTO) 1.7 K/uL (0.0-1.0); MONOCYTES % (AUTO) 11.3 % (1.7-9.3); NEUTROPHILS # (AUTO) 12.8 K/uL (1.8-7.7); NEUTROPHILS % (AUTO) 83.8 % (40.0-70.0); PLATELET COUNT (AUTO) 505 K/uL (130-430); RED BLOOD CELL COUNT(AUTO) 4.63 MIL/uL (4.2-6.2); RED CELL DISTRIBUTION WIDTH 14.3 % (9.0-15.0)
[2020-02-29 08:34] LABS: ALBUMIN 2.4 g/dL (3.4-4.8); CALCIUM 8.5 mg/dL (8.4-11.0); CREATININE 0.62 mg/dL (0.55-1.30); POTASSIUM 3.9 mmol/L (3.5-5.1); TOTAL BILIRUBIN 0.4 mg/dL (0.0-1.0)
[2020-02-29 08:41] LABS: WHITE BLOOD COUNT (AUTO) 15.3 K/uL (4.8-10.8)
[2020-02-29] MEDS: ALBUTEROL MDI INHALATION 8 GM INH INH SCH ×4 (08:45→21:00)
[2020-02-29] MEDS: MUPIROCIN 1 GM OIN.PF.APP NS SCH ×4 (09:00→21:39)
[2020-02-29 10:00] VITALS: BP_SYST 135
[2020-02-29] MEDS: CHOLECALCIFEROL (VITAMIN D3) 2,000 UNIT TABLET GT SCH (10:00)
[2020-02-29] MEDS: TAMSULOSIN HCL 0.4 MG CAP GT SCH ×2 (10:00→21:37)
[2020-02-29] MEDS: ASCORBIC ACID 500 MG TABLET PO SCH ×2 (10:00→21:39)
[2020-02-29] MEDS: DOCUSATE SODIUM 100 MG CAPSULE PO SCH (10:00)
[2020-02-29] MEDS: levETIRAcetam 500 MG TABLET GT SCH ×2 (10:00→21:37)
[2020-02-29] MEDS: APIXABAN 2.5 MG TABLET GT SCH ×2 (10:00→21:00)
[2020-02-29] MEDS: POTASSIUM CHLORIDE 20 MEQ/PKT PACKET GT SCH ×2 (10:00→21:37)
[2020-02-29] MEDS: CEFEPIME 0.5 GM in D5W 50 ML IV SCH ×2 (10:00→21:37)
[2020-02-29] MEDS: BACLOFEN 10 MG TABLET GT SCH ×3 (10:00→21:37)
[2020-02-29] MEDS: MAGNESIUM OXIDE 400 MG TABLET PO SCH ×2 (10:00→21:39)
[2020-02-29] MEDS: CHLORHEXIDINE GLUCONATE 15 ML/DOSE, 480 ML MM SCH ×2 (10:00→21:39)
[2020-02-29] MEDS: DEXAMETHASONE SOD PHOSPHATE 10 MG/ML VIAL IVP SCH ×2 (10:30→21:40)
[2020-02-29 12:15] VITALS: BP_SYST 114
[2020-02-29 13:34] VITALS: BP_SYST 114
[2020-02-29 16:00] VITALS: BP_SYST 136
[2020-02-29] MEDS ORDERED: MENTHOL/ZINC OXIDE 113 GM OINT. TP PRN (19:45)
[2020-02-29 21:35] VITALS: BP_SYST 117
[2020-02-29] MEDS: AZITHROMYCIN 500 MG in D5W 250 ML IV SCH (21:39)
[2020-02-29] MEDS: MORPHINE 2 MG/ML INJ. SYRINGE IVP PRN (22:40)
[2020-03-01 01:20] VITALS: BP_SYST 117
[2020-03-01] MEDS: PEG 400/HYPROMELLOSE/GLYCERIN 15 ML DROPS EACH EYE SCH ×4 (01:26→17:06)
[2020-03-01] MEDS: IPRATROPIUM/ALBUTEROL SULFATE 3 ML AMPUL.NEB (DUONEB) IH SCH ×4 (03:00→23:00)
[2020-03-01] MEDS: GABAPENTIN 100 MG CAPSULE GT SCH ×3 (05:18→22:00)
[2020-03-01 07:56] VITALS: BP_SYST 113
[2020-03-01] MEDS: ALBUTEROL MDI INHALATION 8 GM INH INH SCH ×4 (10:05→21:17)
[2020-03-01] MEDS: levETIRAcetam 500 MG TABLET GT SCH ×2 (10:17→21:00)
[2020-03-01] MEDS: POTASSIUM CHLORIDE 20 MEQ/PKT PACKET GT SCH ×2 (10:17→21:00)
[2020-03-01] MEDS: TAMSULOSIN HCL 0.4 MG CAP GT SCH ×2 (10:17→21:00)
[2020-03-01] MEDS: APIXABAN 2.5 MG TABLET GT SCH ×2 (10:17→21:00)
[2020-03-01] MEDS: BACLOFEN 10 MG TABLET GT SCH ×3 (10:17→21:00)
[2020-03-01] MEDS: MUPIROCIN 1 GM OIN.PF.APP NS SCH ×4 (10:18→21:00)
[2020-03-01] MEDS: BALSAM PERU/CASTOR OIL 60 GM OINT...G. TP SCH (10:18)
[2020-03-01] MEDS: ASCORBIC ACID 500 MG TABLET PO SCH ×2 (10:18→21:00)
[2020-03-01] MEDS: CHOLECALCIFEROL (VITAMIN D3) 2,000 UNIT TABLET GT SCH (10:18)
[2020-03-01] MEDS: DOCUSATE SODIUM 100 MG CAPSULE PO SCH (10:18)
[2020-03-01] MEDS: DEXAMETHASONE SOD PHOSPHATE 10 MG/ML VIAL IVP SCH ×2 (10:18→22:30)
[2020-03-01] MEDS: CHLORHEXIDINE GLUCONATE 15 ML/DOSE, 480 ML MM SCH ×2 (10:18→21:00)
[2020-03-01] MEDS: MAGNESIUM OXIDE 400 MG TABLET PO SCH ×2 (10:18→21:00)
[2020-03-01] MEDS: CEFEPIME 0.5 GM in D5W 50 ML IV SCH ×2 (10:18→21:00)
[2020-03-01 12:19] VITALS: BP_SYST 113
[2020-03-01 16:24] VITALS: BP_SYST 97
[2020-03-01] MEDS: AZITHROMYCIN 500 MG in D5W 250 ML IV SCH (21:00)
[2020-03-02] MEDS: GABAPENTIN 100 MG CAPSULE GT SCH ×3 (06:00→22:00)
[2020-03-02] MEDS: IPRATROPIUM/ALBUTEROL SULFATE 3 ML AMPUL.NEB (DUONEB) IH SCH ×4 (07:00→23:00)
[2020-03-02 08:00] VITALS: BP_SYST 118; BP_SYST 124
[2020-03-02 08:54] LABS: CREATININE 0.54 mg/dL (0.55-1.30); POTASSIUM 3.6 mmol/L (3.5-5.1)
[2020-03-02] MEDS: DOCUSATE SODIUM 100 MG CAPSULE PO SCH ×2 (09:00→09:07)
[2020-03-02] MEDS: MUPIROCIN 1 GM OIN.PF.APP NS SCH ×2 (09:00→09:35)
[2020-03-02] MEDS: CHOLECALCIFEROL (VITAMIN D3) 2,000 UNIT TABLET GT SCH (09:00)
[2020-03-02] MEDS: BALSAM PERU/CASTOR OIL 60 GM OINT...G. TP SCH (09:00)
[2020-03-02 09:01] LABS: BASOPHILS % (AUTO) 0.1 % (0.0-2.0); HEMATOCRIT 39.4 % (36-54); HEMOGLOBIN 13.2 g/dL (14.0-18.0); LYMPHOCYTES # (AUTO) 0.7 K/uL (1.0-5.5); LYMPHOCYTES % (AUTO) 3.8 % (20.5-51.5); MEAN CORPUSCULAR HEMOGLOBIN 31 pg (27-31); MEAN CORPUSCULAR HGB CONC 33 % (32-36); MEAN CORPUSCULAR VOLUME 93 fL (79.0-98.0); MONOCYTES # (AUTO) 1.1 K/uL (0.0-1.0); MONOCYTES % (AUTO) 6.3 % (1.7-9.3); NEUTROPHILS # (AUTO) 15.8 K/uL (1.8-7.7); NEUTROPHILS % (AUTO) 89.8 % (40.0-70.0); PLATELET COUNT (AUTO) 560 K/uL (130-430); RED BLOOD CELL COUNT(AUTO) 4.24 MIL/uL (4.2-6.2); RED CELL DISTRIBUTION WIDTH 14.4 % (9.0-15.0); WHITE BLOOD COUNT (AUTO) 17.6 K/uL (4.8-10.8)
[2020-03-02] MEDS: MAGNESIUM OXIDE 400 MG TABLET PO SCH ×2 (09:06→21:00)
[2020-03-02] MEDS: TAMSULOSIN HCL 0.4 MG CAP GT SCH ×2 (09:06→21:00)
[2020-03-02] MEDS: levETIRAcetam 500 MG TABLET GT SCH ×2 (09:06→21:00)
[2020-03-02] MEDS: ASCORBIC ACID 500 MG TABLET PO SCH ×2 (09:06→21:00)
[2020-03-02] MEDS: APIXABAN 2.5 MG TABLET GT SCH ×2 (09:07→21:00)
[2020-03-02] MEDS: BACLOFEN 10 MG TABLET GT SCH ×3 (09:07→21:00)
[2020-03-02] MEDS: POTASSIUM CHLORIDE 20 MEQ/PKT PACKET GT SCH ×2 (09:16→21:00)
[2020-03-02] MEDS: PEG 400/HYPROMELLOSE/GLYCERIN 15 ML DROPS EACH EYE SCH ×4 (09:35→17:45)
[2020-03-02] MEDS: CHLORHEXIDINE GLUCONATE 15 ML/DOSE, 480 ML MM SCH ×2 (09:35→21:00)
[2020-03-02] MEDS: DEXAMETHASONE SOD PHOSPHATE 10 MG/ML VIAL IVP SCH ×2 (09:36→22:30)
[2020-03-02] MEDS: ALBUTEROL MDI INHALATION 8 GM INH INH SCH ×3 (09:43→21:07)
[2020-03-02 12:00] VITALS: BP_SYST 101
[2020-03-02] MEDS: CEFEPIME 0.5 GM in D5W 50 ML IV SCH ×2 (12:12→21:00)
[2020-03-02 16:00] VITALS: BP_SYST 111
[2020-03-02 20:00] VITALS: BP_SYST 117
[2020-03-03 00:05] VITALS: BP_SYST 120
[2020-03-03] MEDS: GABAPENTIN 100 MG CAPSULE GT SCH ×3 (00:15→22:56)
[2020-03-03] MEDS: PEG 400/HYPROMELLOSE/GLYCERIN 15 ML DROPS EACH EYE SCH ×3 (01:05→12:00)
[2020-03-03] MEDS: IPRATROPIUM/ALBUTEROL SULFATE 3 ML AMPUL.NEB (DUONEB) IH SCH ×2 (07:00→15:00)
[2020-03-03 08:00] VITALS: BP_SYST 123
[2020-03-03] MEDS ORDERED: FAMOTIDINE 20 MG TABLET ONE ×2 (09:14→10:08)
[2020-03-03] MEDS: CHLORHEXIDINE GLUCONATE 15 ML/DOSE, 480 ML MM SCH ×2 (10:00→21:00)
[2020-03-03] MEDS: levETIRAcetam 500 MG TABLET GT SCH ×2 (10:02→21:00)
[2020-03-03] MEDS: DOCUSATE SODIUM 100 MG CAPSULE PO SCH (10:02)
[2020-03-03] MEDS: CHOLECALCIFEROL (VITAMIN D3) 2,000 UNIT TABLET GT SCH (10:02)
[2020-03-03] MEDS: MAGNESIUM OXIDE 400 MG TABLET PO SCH ×2 (10:02→21:00)
[2020-03-03] MEDS: POTASSIUM CHLORIDE 20 MEQ/PKT PACKET GT SCH ×2 (10:02→21:00)
[2020-03-03] MEDS: BACLOFEN 10 MG TABLET GT SCH ×3 (10:02→21:00)
[2020-03-03] MEDS: TAMSULOSIN HCL 0.4 MG CAP GT SCH ×2 (10:02→21:00)
[2020-03-03] MEDS: CEFEPIME 0.5 GM in D5W 50 ML IV SCH ×2 (10:02→21:00)
[2020-03-03] MEDS: ASCORBIC ACID 500 MG TABLET PO SCH ×2 (10:03→21:00)
[2020-03-03] MEDS: BALSAM PERU/CASTOR OIL 60 GM OINT...G. TP SCH (10:04)
[2020-03-03] MEDS: APIXABAN 2.5 MG TABLET GT SCH ×2 (10:10→21:00)
[2020-03-03] MEDS: DEXAMETHASONE SOD PHOSPHATE 10 MG/ML VIAL IVP SCH ×2 (10:12→22:55)
[2020-03-03] MEDS: ALBUTEROL MDI INHALATION 8 GM INH INH SCH ×4 (10:49→21:10)
[2020-03-03 12:41] VITALS: BP_SYST 118
[2020-03-03 14:40] VITALS: BP_SYST 118
[2020-03-03 16:12] VITALS: BP_SYST 176
[2020-03-03 20:00] VITALS: BP_SYST 120
[2020-03-04] MEDS: GABAPENTIN 100 MG CAPSULE GT SCH ×3 (05:11→22:00)
[2020-03-04] MEDS: PEG 400/HYPROMELLOSE/GLYCERIN 15 ML DROPS EACH EYE SCH ×4 (05:11→17:20)
[2020-03-04 07:18] LABS: BASOPHILS % (AUTO) 0.2 % (0.0-2.0); HEMATOCRIT 37.2 % (36-54); HEMOGLOBIN 12.6 g/dL (14.0-18.0); LYMPHOCYTES # (AUTO) 0.4 K/uL (1.0-5.5); LYMPHOCYTES % (AUTO) 3.8 % (20.5-51.5); MEAN CORPUSCULAR HEMOGLOBIN 31 pg (27-31); MEAN CORPUSCULAR HGB CONC 34 % (32-36); MEAN CORPUSCULAR VOLUME 92 fL (79.0-98.0); MONOCYTES # (AUTO) 0.4 K/uL (0.0-1.0); MONOCYTES % (AUTO) 3.8 % (1.7-9.3); NEUTROPHILS # (AUTO) 10.8 K/uL (1.8-7.7); NEUTROPHILS % (AUTO) 92.2 % (40.0-70.0); PLATELET COUNT (AUTO) 524 K/uL (130-430); RED BLOOD CELL COUNT(AUTO) 4.04 MIL/uL (4.2-6.2); RED CELL DISTRIBUTION WIDTH 14.7 % (9.0-15.0); WHITE BLOOD COUNT (AUTO) 11.7 K/uL (4.8-10.8)
[2020-03-04 08:00] VITALS: BP_SYST 138
[2020-03-04 08:02] LABS: CALCIUM 8.9 mg/dL (8.4-11.0); CREATININE 0.57 mg/dL (0.55-1.30); POTASSIUM 4.2 mmol/L (3.5-5.1)
[2020-03-04] MEDS: ASCORBIC ACID 500 MG TABLET PO SCH ×2 (10:20→21:00)
[2020-03-04] MEDS: BALSAM PERU/CASTOR OIL 60 GM OINT...G. TP SCH (10:20)
[2020-03-04] MEDS: APIXABAN 2.5 MG TABLET GT SCH ×2 (10:20→21:00)
[2020-03-04] MEDS: BACLOFEN 10 MG TABLET GT SCH ×3 (10:27→21:00)
[2020-03-04] MEDS: TAMSULOSIN HCL 0.4 MG CAP GT SCH ×2 (10:27→21:00)
[2020-03-04] MEDS: POTASSIUM CHLORIDE 20 MEQ/PKT PACKET GT SCH ×2 (10:27→21:00)
[2020-03-04] MEDS: CHOLECALCIFEROL (VITAMIN D3) 2,000 UNIT TABLET GT SCH (10:28)
[2020-03-04] MEDS: levETIRAcetam 500 MG TABLET GT SCH ×2 (10:28→21:00)
[2020-03-04] MEDS: CHLORHEXIDINE GLUCONATE 15 ML/DOSE, 480 ML MM SCH ×2 (10:29→21:00)
[2020-03-04] MEDS: DOCUSATE SODIUM 100 MG CAPSULE PO SCH (10:29)
[2020-03-04] MEDS: CEFEPIME 0.5 GM in D5W 50 ML IV SCH ×2 (10:29→21:00)
[2020-03-04] MEDS: MAGNESIUM OXIDE 400 MG TABLET PO SCH ×2 (10:30→21:00)
[2020-03-04] MEDS: ALBUTEROL MDI INHALATION 8 GM INH INH SCH ×4 (10:39→21:42)
[2020-03-04] MEDS ORDERED: DOCUSATE SODIUM 100 MG/10 ML UDC ONE (10:40)
[2020-03-04] MEDS: DEXAMETHASONE SOD PHOSPHATE 10 MG/ML VIAL IVP SCH ×2 (10:46→22:30)
[2020-03-04 12:00] VITALS: BP_SYST 126
[2020-03-04] MEDS: IPRATROPIUM/ALBUTEROL SULFATE 3 ML AMPUL.NEB (DUONEB) IH SCH (14:46)
[2020-03-04 16:00] VITALS: BP_SYST 117
[2020-03-04 20:00] VITALS: BP_SYST 115
[2020-03-05] MEDS: PEG 400/HYPROMELLOSE/GLYCERIN 15 ML DROPS EACH EYE SCH ×4 (00:51→18:25)
[2020-03-05] MEDS: GABAPENTIN 100 MG CAPSULE GT SCH ×3 (05:55→22:32)
[2020-03-05 08:00] VITALS: BP_SYST 125
[2020-03-05] MEDS: ALBUTEROL MDI INHALATION 8 GM INH INH SCH ×2 (08:05→21:54)
[2020-03-05] MEDS: DOCUSATE SODIUM 100 MG CAPSULE PO SCH (09:00)
[2020-03-05] MEDS ORDERED: DOCUSATE SODIUM 100 MG/10 ML UDC ONE (09:36)
[2020-03-05] MEDS: BACLOFEN 10 MG TABLET GT SCH ×3 (09:53→21:00)
[2020-03-05] MEDS: POTASSIUM CHLORIDE 20 MEQ/PKT PACKET GT SCH ×2 (09:53→21:00)
[2020-03-05] MEDS: TAMSULOSIN HCL 0.4 MG CAP GT SCH ×2 (09:53→21:00)
[2020-03-05] MEDS: levETIRAcetam 500 MG TABLET GT SCH ×2 (09:53→21:00)
[2020-03-05] MEDS: CHOLECALCIFEROL (VITAMIN D3) 2,000 UNIT TABLET GT SCH (09:53)
[2020-03-05] MEDS: CHLORHEXIDINE GLUCONATE 15 ML/DOSE, 480 ML MM SCH ×2 (09:53→21:00)
[2020-03-05] MEDS: BALSAM PERU/CASTOR OIL 60 GM OINT...G. TP SCH (09:54)
[2020-03-05] MEDS: MAGNESIUM OXIDE 400 MG TABLET PO SCH ×2 (09:54→21:00)
[2020-03-05] MEDS: ASCORBIC ACID 500 MG TABLET PO SCH ×2 (09:57→21:00)
[2020-03-05] MEDS: APIXABAN 2.5 MG TABLET GT SCH ×2 (09:57→21:00)
[2020-03-05] MEDS: DEXAMETHASONE SOD PHOSPHATE 10 MG/ML VIAL IVP SCH ×2 (10:01→22:32)
[2020-03-05] MEDS: CEFEPIME 0.5 GM in D5W 50 ML IV SCH ×2 (10:01→21:00)
[2020-03-05 11:33] VITALS: BP_SYST 121
[2020-03-05 15:29] VITALS: BP_SYST 117
[2020-03-05] MEDS: IPRATROPIUM/ALBUTEROL SULFATE 3 ML AMPUL.NEB (DUONEB) IH SCH (19:00)
[2020-03-05 20:00] VITALS: BP_SYST 135
[2020-03-06] MEDS: PEG 400/HYPROMELLOSE/GLYCERIN 15 ML DROPS EACH EYE SCH ×4 (06:29→17:14)
[2020-03-06] MEDS: GABAPENTIN 100 MG CAPSULE GT SCH ×3 (06:30→22:23)
[2020-03-06 06:57] LABS: BASOPHILS % (AUTO) 0.1 % (0.0-2.0); HEMATOCRIT 42.9 % (36-54); HEMOGLOBIN 14.2 g/dL (14.0-18.0); LYMPHOCYTES # (AUTO) 0.5 K/uL (1.0-5.5); LYMPHOCYTES % (AUTO) 2.8 % (20.5-51.5); MEAN CORPUSCULAR HEMOGLOBIN 31 pg (27-31); MEAN CORPUSCULAR HGB CONC 33 % (32-36); MEAN CORPUSCULAR VOLUME 93 fL (79.0-98.0); MONOCYTES % (AUTO) 5.6 % (1.7-9.3); NEUTROPHILS # (AUTO) 16.6 K/uL (1.8-7.7); NEUTROPHILS % (AUTO) 91.5 % (40.0-70.0); PLATELET COUNT (AUTO) 440 K/uL (130-430); RED BLOOD CELL COUNT(AUTO) 4.61 MIL/uL (4.2-6.2); RED CELL DISTRIBUTION WIDTH 14.3 % (9.0-15.0); WHITE BLOOD COUNT (AUTO) 18.1 K/uL (4.8-10.8)
[2020-03-06 07:25] LABS: CALCIUM 9.1 mg/dL (8.4-11.0); CREATININE 0.54 mg/dL (0.55-1.30); POTASSIUM 4.3 mmol/L (3.5-5.1)
[2020-03-06 08:00] VITALS: BP_SYST 138
[2020-03-06] MEDS: DOCUSATE SODIUM 100 MG CAPSULE PO SCH (09:00)
[2020-03-06] MEDS ORDERED: DOCUSATE SODIUM 100 MG/10 ML UDC ONE (10:02)
[2020-03-06] MEDS: APIXABAN 2.5 MG TABLET GT SCH ×2 (10:04→21:00)
[2020-03-06] MEDS: BACLOFEN 10 MG TABLET GT SCH ×3 (10:04→22:21)
[2020-03-06] MEDS: TAMSULOSIN HCL 0.4 MG CAP GT SCH ×2 (10:05→22:22)
[2020-03-06] MEDS: POTASSIUM CHLORIDE 20 MEQ/PKT PACKET GT SCH ×2 (10:05→22:22)
[2020-03-06] MEDS: ASCORBIC ACID 500 MG TABLET PO SCH ×2 (10:06→22:22)
[2020-03-06] MEDS: CHOLECALCIFEROL (VITAMIN D3) 2,000 UNIT TABLET GT SCH (10:06)
[2020-03-06] MEDS: levETIRAcetam 500 MG TABLET GT SCH ×2 (10:06→22:22)
[2020-03-06] MEDS: MAGNESIUM OXIDE 400 MG TABLET PO SCH ×2 (10:06→22:25)
[2020-03-06] MEDS: CHLORHEXIDINE GLUCONATE 15 ML/DOSE, 480 ML MM SCH ×2 (10:06→22:22)
[2020-03-06] MEDS: BALSAM PERU/CASTOR OIL 60 GM OINT...G. TP SCH (10:07)
[2020-03-06] MEDS: DEXAMETHASONE SOD PHOSPHATE 10 MG/ML VIAL IVP SCH ×2 (10:07→22:30)
[2020-03-06] MEDS ORDERED: CEFEPIME 0.5 GM in D5W 50 ML IV SCH (11:00)
[2020-03-06 11:34] VITALS: BP_SYST 128
[2020-03-06 12:56] VITALS: BP_SYST 128
[2020-03-06] MEDS: IPRATROPIUM/ALBUTEROL SULFATE 3 ML AMPUL.NEB (DUONEB) IH SCH ×2 (15:00→19:10)
[2020-03-06 15:32] VITALS: BP_SYST 131
[2020-03-06] MEDS: ALBUTEROL MDI INHALATION 8 GM INH INH SCH (16:06)
[2020-03-06] MEDS: VANCOMYCIN HCL 1.25 GM/NS 250 ML IV SCH (17:00)
[2020-03-06] MEDS: PIPERACILLIN/TAZO 3.375/DEX-IS 50 ML IV SCH (17:16)
[2020-03-06] MEDS: MUPIROCIN 2% TOPICAL OINTMENT 22 GM TP SCH (22:22)
[2020-03-07] MEDS: PEG 400/HYPROMELLOSE/GLYCERIN 15 ML DROPS EACH EYE SCH ×4 (01:01→18:27)
[2020-03-07] MEDS: PIPERACILLIN/TAZO 3.375/DEX-IS 50 ML IV SCH ×4 (01:02→18:27)
[2020-03-07] MEDS: VANCOMYCIN HCL 1.25 GM/NS 250 ML IV SCH ×3 (01:08→18:00)
[2020-03-07] MEDS: GABAPENTIN 100 MG CAPSULE GT SCH ×3 (06:02→22:00)
[2020-03-07 08:00] VITALS: BP_SYST 114
[2020-03-07] MEDS: BACLOFEN 10 MG TABLET GT SCH ×3 (08:57→21:00)
[2020-03-07] MEDS: APIXABAN 2.5 MG TABLET GT SCH ×2 (09:00→21:00)
[2020-03-07] MEDS: DOCUSATE SODIUM 100 MG CAPSULE PO SCH (09:00)
[2020-03-07] MEDS: POTASSIUM CHLORIDE 20 MEQ/PKT PACKET GT SCH ×2 (09:00→21:00)
[2020-03-07] MEDS: levETIRAcetam 500 MG TABLET GT SCH ×2 (09:00→21:00)
[2020-03-07] MEDS: TAMSULOSIN HCL 0.4 MG CAP GT SCH ×2 (09:00→21:00)
[2020-03-07] MEDS: ASCORBIC ACID 500 MG TABLET PO SCH ×2 (09:01→21:00)
[2020-03-07] MEDS: CHLORHEXIDINE GLUCONATE 15 ML/DOSE, 480 ML MM SCH ×2 (09:01→21:00)
[2020-03-07] MEDS: CHOLECALCIFEROL (VITAMIN D3) 2,000 UNIT TABLET GT SCH (09:01)
[2020-03-07] MEDS: MUPIROCIN 2% TOPICAL OINTMENT 22 GM TP SCH ×2 (09:01→21:00)
[2020-03-07] MEDS: BALSAM PERU/CASTOR OIL 60 GM OINT...G. TP SCH (09:01)
[2020-03-07] MEDS: MAGNESIUM OXIDE 400 MG TABLET PO SCH ×2 (09:01→21:00)
[2020-03-07] MEDS: DEXAMETHASONE SOD PHOSPHATE 10 MG/ML VIAL IVP SCH ×2 (09:06→22:30)
[2020-03-07 11:22] VITALS: BP_SYST 126
[2020-03-07] MEDS: ALBUTEROL MDI INHALATION 8 GM INH INH SCH (12:58)
[2020-03-07 15:38] VITALS: BP_SYST 104
[2020-03-07 20:00] VITALS: BP_SYST 117
[2020-03-07] MEDS: IPRATROPIUM/ALBUTEROL SULFATE 3 ML AMPUL.NEB (DUONEB) IH SCH (20:30)
[2020-03-08] MEDS: PIPERACILLIN/TAZO 3.375/DEX-IS 50 ML IV SCH ×4 (06:59→17:48)
[2020-03-08] MEDS: GABAPENTIN 100 MG CAPSULE GT SCH ×3 (06:59→22:20)
[2020-03-08] MEDS: PEG 400/HYPROMELLOSE/GLYCERIN 15 ML DROPS EACH EYE SCH ×4 (06:59→17:48)
[2020-03-08] MEDS: IPRATROPIUM/ALBUTEROL SULFATE 3 ML AMPUL.NEB (DUONEB) IH SCH ×4 (07:00→19:00)
[2020-03-08 07:02] LABS: BASOPHILS # (AUTO) 0.1 K/uL (0.0-0.2); BASOPHILS % (AUTO) 0.3 % (0.0-2.0); HEMATOCRIT 38.5 % (36-54); HEMOGLOBIN 12.7 g/dL (14.0-18.0); LYMPHOCYTES # (AUTO) 0.4 K/uL (1.0-5.5); LYMPHOCYTES % (AUTO) 1.6 % (20.5-51.5); MEAN CORPUSCULAR HEMOGLOBIN 31 pg (27-31); MEAN CORPUSCULAR HGB CONC 33 % (32-36); MEAN CORPUSCULAR VOLUME 93 fL (79.0-98.0); MONOCYTES # (AUTO) 1.2 K/uL (0.0-1.0); MONOCYTES % (AUTO) 4.8 % (1.7-9.3); NEUTROPHILS # (AUTO) 22.8 K/uL (1.8-7.7); PLATELET COUNT (AUTO) 344 K/uL (130-430); RED BLOOD CELL COUNT(AUTO) 4.16 MIL/uL (4.2-6.2); RED CELL DISTRIBUTION WIDTH 14.4 % (9.0-15.0); WHITE BLOOD COUNT (AUTO) 24.5 K/uL (4.8-10.8)
[2020-03-08] MEDS: DOCUSATE SODIUM 100 MG CAPSULE PO SCH (07:30)
[2020-03-08 07:31] LABS: CALCIUM 8.5 mg/dL (8.4-11.0); CREATININE 0.44 mg/dL (0.55-1.30); POTASSIUM 4.4 mmol/L (3.5-5.1)
[2020-03-08 08:00] VITALS: BP_SYST 122
[2020-03-08] MEDS: ALBUTEROL MDI INHALATION 8 GM INH INH SCH ×4 (08:15→22:08)
[2020-03-08] MEDS: POTASSIUM CHLORIDE 20 MEQ/PKT PACKET GT SCH ×2 (08:29→22:21)
[2020-03-08] MEDS: ASCORBIC ACID 500 MG TABLET PO SCH ×2 (08:29→22:22)
[2020-03-08] MEDS: MAGNESIUM OXIDE 400 MG TABLET PO SCH ×2 (08:29→22:22)
[2020-03-08] MEDS: BALSAM PERU/CASTOR OIL 60 GM OINT...G. TP SCH (08:29)
[2020-03-08] MEDS: CHLORHEXIDINE GLUCONATE 15 ML/DOSE, 480 ML MM SCH ×2 (08:29→22:22)
[2020-03-08] MEDS: levETIRAcetam 500 MG TABLET GT SCH ×2 (08:29→22:21)
[2020-03-08] MEDS: CHOLECALCIFEROL (VITAMIN D3) 2,000 UNIT TABLET GT SCH (08:29)
[2020-03-08] MEDS: BACLOFEN 10 MG TABLET GT SCH ×3 (08:29→22:19)
[2020-03-08] MEDS: MUPIROCIN 2% TOPICAL OINTMENT 22 GM TP SCH ×2 (08:29→22:22)
[2020-03-08] MEDS: TAMSULOSIN HCL 0.4 MG CAP GT SCH ×2 (08:29→22:21)
[2020-03-08] MEDS: APIXABAN 2.5 MG TABLET GT SCH ×2 (08:34→22:20)
[2020-03-08] MEDS: VANCOMYCIN HCL 1.25 GM/NS 250 ML IV SCH (10:40)
[2020-03-08] MEDS: DEXAMETHASONE SOD PHOSPHATE 10 MG/ML VIAL IVP SCH ×2 (10:41→22:36)
[2020-03-08 11:40] VITALS: BP_SYST 136
[2020-03-08 12:43] LABS: NEUTROPHILS % (AUTO) 93.3 % (40.0-70.0)
[2020-03-08 16:34] VITALS: BP_SYST 113
[2020-03-08 20:00] VITALS: BP_SYST 122
[2020-03-08] MEDS: ERAVACYCLINE DI-HYDROCHLORIDE 65 MG in NS 250 ML IV SCH (21:00)
[2020-03-09] MEDS: GABAPENTIN 100 MG CAPSULE GT SCH ×3 (06:49→21:35)
[2020-03-09] MEDS: PIPERACILLIN/TAZO 3.375/DEX-IS 50 ML IV SCH ×4 (06:49→17:36)
[2020-03-09] MEDS: PEG 400/HYPROMELLOSE/GLYCERIN 15 ML DROPS EACH EYE SCH ×4 (06:49→17:36)
[2020-03-09] MEDS: ALBUTEROL MDI INHALATION 8 GM INH INH SCH ×4 (07:45→19:35)
[2020-03-09 08:15] VITALS: BP_SYST 108
[2020-03-09] MEDS: BACLOFEN 10 MG TABLET GT SCH ×3 (08:30→21:34)
[2020-03-09] MEDS: CHOLECALCIFEROL (VITAMIN D3) 2,000 UNIT TABLET GT SCH (08:30)
[2020-03-09] MEDS: ERAVACYCLINE DI-HYDROCHLORIDE 65 MG in NS 250 ML IV SCH ×2 (08:30→21:36)
[2020-03-09] MEDS: levETIRAcetam 500 MG TABLET GT SCH ×2 (08:30→21:35)
[2020-03-09] MEDS: TAMSULOSIN HCL 0.4 MG CAP GT SCH ×2 (08:30→21:35)
[2020-03-09] MEDS: DOCUSATE SODIUM 100 MG CAPSULE PO SCH (08:31)
[2020-03-09] MEDS: MUPIROCIN 2% TOPICAL OINTMENT 22 GM TP SCH ×2 (08:31→21:35)
[2020-03-09] MEDS: ASCORBIC ACID 500 MG TABLET PO SCH ×2 (08:31→21:35)
[2020-03-09] MEDS: MAGNESIUM OXIDE 400 MG TABLET PO SCH ×2 (08:31→21:35)
[2020-03-09] MEDS: CHLORHEXIDINE GLUCONATE 15 ML/DOSE, 480 ML MM SCH ×2 (08:32→21:35)
[2020-03-09] MEDS: POTASSIUM CHLORIDE 20 MEQ/PKT PACKET GT SCH ×2 (08:32→21:35)
[2020-03-09] MEDS: BALSAM PERU/CASTOR OIL 60 GM OINT...G. TP SCH (08:32)
[2020-03-09] MEDS: APIXABAN 2.5 MG TABLET GT SCH ×2 (08:57→22:23)
[2020-03-09] MEDS: DEXAMETHASONE SOD PHOSPHATE 10 MG/ML VIAL IVP SCH ×2 (10:17→21:36)
[2020-03-09 11:20] VITALS: BP_SYST 118
[2020-03-09 15:44] VITALS: BP_SYST 144
[2020-03-09 15:54] VITALS: BP_SYST 127
[2020-03-09 20:00] VITALS: BP_SYST 144
[2020-03-10] MEDS: PEG 400/HYPROMELLOSE/GLYCERIN 15 ML DROPS EACH EYE SCH ×5 (00:22→23:03)
[2020-03-10] MEDS: PIPERACILLIN/TAZO 3.375/DEX-IS 50 ML IV SCH ×5 (00:22→23:04)
[2020-03-10] MEDS: GABAPENTIN 100 MG CAPSULE GT SCH ×3 (06:12→23:02)
[2020-03-10 08:09] VITALS: BP_SYST 114
[2020-03-10 08:44] LABS: HEMATOCRIT 42.5 % (36-54); HEMOGLOBIN 13.9 g/dL (14.0-18.0); MEAN CORPUSCULAR HEMOGLOBIN 31 pg (27-31); MEAN CORPUSCULAR HGB CONC 33 % (32-36); MEAN CORPUSCULAR VOLUME 94 fL (79.0-98.0); PLATELET COUNT (AUTO) 363 K/uL (130-430); RED BLOOD CELL COUNT(AUTO) 4.54 MIL/uL (4.2-6.2); RED CELL DISTRIBUTION WIDTH 14.6 % (9.0-15.0); WHITE BLOOD COUNT (AUTO) 25.6 K/uL (4.8-10.8)
[2020-03-10 08:49] LABS: CALCIUM 8.4 mg/dL (8.4-11.0); CREATININE 0.36 mg/dL (0.55-1.30); POTASSIUM 5.2 mmol/L (3.5-5.1); TOTAL BILIRUBIN 1.4 mg/dL (0.0-1.0)
[2020-03-10 08:50] LABS: ALBUMIN 2.3 g/dL (3.4-4.8)
[2020-03-10] MEDS: ASCORBIC ACID 500 MG TABLET PO SCH ×2 (09:00→21:00)
[2020-03-10] MEDS: APIXABAN 2.5 MG TABLET GT SCH ×2 (09:00→21:00)
[2020-03-10] MEDS: POTASSIUM CHLORIDE 20 MEQ/PKT PACKET GT SCH (09:00)
[2020-03-10] MEDS: levETIRAcetam 500 MG TABLET GT SCH ×3 (09:00→21:00)
[2020-03-10] MEDS: CHOLECALCIFEROL (VITAMIN D3) 2,000 UNIT TABLET GT SCH (09:00)
[2020-03-10] MEDS: DOCUSATE SODIUM 100 MG CAPSULE PO SCH (09:00)
[2020-03-10] MEDS: BACLOFEN 10 MG TABLET GT SCH ×3 (09:00→21:00)
[2020-03-10] MEDS: MAGNESIUM OXIDE 400 MG TABLET PO SCH ×2 (09:00→21:00)
[2020-03-10] MEDS: TAMSULOSIN HCL 0.4 MG CAP GT SCH ×2 (09:00→21:00)
[2020-03-10] MEDS: CHLORHEXIDINE GLUCONATE 15 ML/DOSE, 480 ML MM SCH ×2 (09:44→21:00)
[2020-03-10] MEDS: BALSAM PERU/CASTOR OIL 60 GM OINT...G. TP SCH (09:44)
[2020-03-10] MEDS: MUPIROCIN 2% TOPICAL OINTMENT 22 GM TP SCH ×2 (09:44→21:00)
[2020-03-10] MEDS: ALBUTEROL MDI INHALATION 8 GM INH INH SCH ×4 (10:04→20:26)
[2020-03-10] MEDS: ERAVACYCLINE DI-HYDROCHLORIDE 65 MG in NS 250 ML IV SCH ×2 (10:30→21:00)
[2020-03-10 10:32] LABS: BAND % (MANUAL) 3 % (0-6); BASOPHILS % (MANUAL) 0 % (0-2); EOSINOPHILS % (MANUAL) 0 % (0-7); LYMPHOCYTES % (MANUAL) 1 % (20-46); MONOCYTES % (MANUAL) 3 % (0-11)
[2020-03-10] MEDS: DEXAMETHASONE SOD PHOSPHATE 10 MG/ML VIAL IVP SCH ×2 (11:05→23:02)
[2020-03-10 12:15] VITALS: BP_SYST 141
[2020-03-10 16:00] VITALS: BP_SYST 135
[2020-03-10] MEDS ORDERED: ALBUTEROL MDI INHALATION 8 GM INH INH PRN (16:00)
[2020-03-10] MEDS ORDERED: ALBUTEROL MDI INHALATION 8 GM INH INH SCH (16:00)
[2020-03-10 20:00] VITALS: BP_SYST 137
[2020-03-11 00:30] VITALS: BP_SYST 125
[2020-03-11] MEDS: PIPERACILLIN/TAZO 3.375/DEX-IS 50 ML IV SCH ×3 (06:02→17:12)
[2020-03-11] MEDS: GABAPENTIN 100 MG CAPSULE GT SCH ×3 (06:02→22:45)
[2020-03-11] MEDS: PEG 400/HYPROMELLOSE/GLYCERIN 15 ML DROPS EACH EYE SCH ×3 (06:03→17:12)
[2020-03-11 07:48] LABS: ALBUMIN 2.2 g/dL (3.4-4.8); CALCIUM 8.6 mg/dL (8.4-11.0); CREATININE 0.47 mg/dL (0.55-1.30); POTASSIUM 4.1 mmol/L (3.5-5.1); TOTAL BILIRUBIN 1.7 mg/dL (0.0-1.0)
[2020-03-11 08:50] LABS: BASOPHILS # (AUTO) 0.1 K/uL (0.0-0.2); BASOPHILS % (AUTO) 0.2 % (0.0-2.0); HEMATOCRIT 41.1 % (36-54); HEMOGLOBIN 13.2 g/dL (14.0-18.0); LYMPHOCYTES # (AUTO) 0.5 K/uL (1.0-5.5); LYMPHOCYTES % (AUTO) 1.6 % (20.5-51.5); MEAN CORPUSCULAR HEMOGLOBIN 31 pg (27-31); MEAN CORPUSCULAR HGB CONC 32 % (32-36); MEAN CORPUSCULAR VOLUME 95 fL (79.0-98.0); MONOCYTES # (AUTO) 1.3 K/uL (0.0-1.0); MONOCYTES % (AUTO) 4.4 % (1.7-9.3); NEUTROPHILS # (AUTO) 27.4 K/uL (1.8-7.7); PLATELET COUNT (AUTO) 387 K/uL (130-430); RED BLOOD CELL COUNT(AUTO) 4.32 MIL/uL (4.2-6.2); RED CELL DISTRIBUTION WIDTH 14.7 % (9.0-15.0); WHITE BLOOD COUNT (AUTO) 29.2 K/uL (4.8-10.8)
[2020-03-11] MEDS: TAMSULOSIN HCL 0.4 MG CAP GT SCH ×2 (09:00→22:42)
[2020-03-11] MEDS: ERAVACYCLINE DI-HYDROCHLORIDE 65 MG in NS 250 ML IV SCH ×2 (09:00→22:43)
[2020-03-11] MEDS: BALSAM PERU/CASTOR OIL 60 GM OINT...G. TP SCH (09:00)
[2020-03-11] MEDS: ASCORBIC ACID 500 MG TABLET PO SCH ×2 (09:00→22:44)
[2020-03-11] MEDS: CHLORHEXIDINE GLUCONATE 15 ML/DOSE, 480 ML MM SCH ×2 (09:00→22:44)
[2020-03-11] MEDS: BACLOFEN 10 MG TABLET GT SCH ×3 (09:00→22:41)
[2020-03-11] MEDS: CHOLECALCIFEROL (VITAMIN D3) 2,000 UNIT TABLET GT SCH (09:00)
[2020-03-11] MEDS: MUPIROCIN 2% TOPICAL OINTMENT 22 GM TP SCH (09:00)
[2020-03-11] MEDS: DOCUSATE SODIUM 100 MG CAPSULE PO SCH (09:00)
[2020-03-11] MEDS: MAGNESIUM OXIDE 400 MG TABLET PO SCH ×2 (09:00→22:44)
[2020-03-11] MEDS: levETIRAcetam 500 MG TABLET GT SCH ×3 (09:00→21:00)
[2020-03-11] MEDS: APIXABAN 2.5 MG TABLET GT SCH ×2 (09:00→22:42)
[2020-03-11] MEDS: ALBUTEROL MDI INHALATION 8 GM INH INH SCH ×4 (09:08→20:38)
[2020-03-11 09:23] LABS: NEUTROPHILS % (AUTO) 93.8 % (40.0-70.0)
[2020-03-11] MEDS: DEXAMETHASONE SOD PHOSPHATE 10 MG/ML VIAL IVP SCH ×2 (10:30→22:46)
[2020-03-11 11:36] VITALS: BP_SYST 121
[2020-03-11 15:38] VITALS: BP_SYST 123
[2020-03-11 20:00] VITALS: BP_SYST 129
[2020-03-12] VITALS (7 sets, daily range): BP systolic 117–132
[2020-03-12] MEDS: PEG 400/HYPROMELLOSE/GLYCERIN 15 ML DROPS EACH EYE SCH ×4 (00:27→17:51)
[2020-03-12] MEDS: PIPERACILLIN/TAZO 3.375/DEX-IS 50 ML IV SCH ×4 (00:28→17:51)
[2020-03-12] MEDS: GABAPENTIN 100 MG CAPSULE GT SCH ×3 (06:13→21:19)
[2020-03-12] MEDS: DEXAMETHASONE SOD PHOSPHATE 10 MG/ML VIAL IVP SCH ×2 (09:17→21:19)
[2020-03-12] MEDS: MAGNESIUM OXIDE 400 MG TABLET PO SCH ×2 (09:17→21:19)
[2020-03-12] MEDS: CHLORHEXIDINE GLUCONATE 15 ML/DOSE, 480 ML MM SCH ×2 (09:17→21:19)
[2020-03-12] MEDS: DOCUSATE SODIUM 100 MG CAPSULE PO SCH (09:17)
[2020-03-12] MEDS: ERAVACYCLINE DI-HYDROCHLORIDE 65 MG in NS 250 ML IV SCH ×2 (09:17→21:19)
[2020-03-12] MEDS: CHOLECALCIFEROL (VITAMIN D3) 2,000 UNIT TABLET GT SCH (09:17)
[2020-03-12] MEDS: levETIRAcetam 500 MG TABLET GT SCH ×3 (09:17→21:18)
[2020-03-12] MEDS: BALSAM PERU/CASTOR OIL 60 GM OINT...G. TP SCH (09:17)
[2020-03-12] MEDS: ASCORBIC ACID 500 MG TABLET PO SCH ×2 (09:17→21:19)
[2020-03-12] MEDS: TAMSULOSIN HCL 0.4 MG CAP GT SCH ×2 (09:17→21:18)
[2020-03-12] MEDS: BACLOFEN 10 MG TABLET GT SCH ×3 (09:17→21:18)
[2020-03-12] MEDS: ALBUTEROL MDI INHALATION 8 GM INH INH SCH ×3 (09:39→20:00)
[2020-03-12] MEDS: APIXABAN 2.5 MG TABLET GT SCH ×2 (10:00→21:00)
[2020-03-13] VITALS: BP_SYST 130
[2020-03-13] MEDS: PIPERACILLIN/TAZO 3.375/DEX-IS 50 ML IV SCH (00:11)
[2020-03-13] MEDS: PEG 400/HYPROMELLOSE/GLYCERIN 15 ML DROPS EACH EYE SCH ×4 (00:11→16:36)
[2020-03-13 04:00] VITALS: BP_SYST 122
[2020-03-13] MEDS: GABAPENTIN 100 MG CAPSULE GT SCH ×3 (05:37→21:27)
[2020-03-13 06:59] LABS: HEMATOCRIT 39.2 % (36-54); HEMOGLOBIN 12.7 g/dL (14.0-18.0); MEAN CORPUSCULAR HEMOGLOBIN 31 pg (27-31); MEAN CORPUSCULAR HGB CONC 32 % (32-36); MEAN CORPUSCULAR VOLUME 95 fL (79.0-98.0); PLATELET COUNT (AUTO) 426 K/uL (130-430); RED BLOOD CELL COUNT(AUTO) 4.15 MIL/uL (4.2-6.2)
[2020-03-13 07:37] LABS: ALBUMIN 2.2 g/dL (3.4-4.8); BILIRUBIN,DIRECT 0.3 mg/dL (0.0-0.3); CALCIUM 8.6 mg/dL (8.4-11.0); CREATININE 0.51 mg/dL (0.55-1.30); POTASSIUM 4.3 mmol/L (3.5-5.1)
[2020-03-13 08:00] VITALS: BP_SYST 132
[2020-03-13 08:59] LABS: ATYPICAL LYMPHOCYTES % 0 % (0-0); BAND % (MANUAL) 7 % (0-6); BASOPHILS % (MANUAL) 0 % (0-2); EOSINOPHILS % (MANUAL) 0 % (0-7); LYMPHOCYTES % (MANUAL) 4 % (20-46); MONOCYTES % (MANUAL) 5 % (0-11)
[2020-03-13] MEDS: ALBUTEROL MDI INHALATION 8 GM INH INH SCH ×4 (09:00→21:27)
[2020-03-13] MEDS: APIXABAN 2.5 MG TABLET GT SCH ×2 (09:00→21:35)
[2020-03-13] MEDS: CHLORHEXIDINE GLUCONATE 15 ML/DOSE, 480 ML MM SCH ×2 (09:06→21:00)
[2020-03-13] MEDS: BACLOFEN 10 MG TABLET GT SCH ×3 (09:06→21:26)
[2020-03-13] MEDS: ASCORBIC ACID 500 MG TABLET PO SCH ×2 (09:06→21:27)
[2020-03-13] MEDS: DOCUSATE SODIUM 100 MG CAPSULE PO SCH (09:06)
[2020-03-13] MEDS: TAMSULOSIN HCL 0.4 MG CAP GT SCH ×2 (09:06→21:26)
[2020-03-13] MEDS: CHOLECALCIFEROL (VITAMIN D3) 2,000 UNIT TABLET GT SCH (09:06)
[2020-03-13] MEDS: MAGNESIUM OXIDE 400 MG TABLET PO SCH ×2 (09:06→21:27)
[2020-03-13] MEDS: ERAVACYCLINE DI-HYDROCHLORIDE 65 MG in NS 250 ML IV SCH ×2 (09:06→21:56)
[2020-03-13] MEDS: BALSAM PERU/CASTOR OIL 60 GM OINT...G. TP SCH (09:06)
[2020-03-13] MEDS: levETIRAcetam 500 MG TABLET GT SCH ×3 (09:06→21:26)
[2020-03-13] MEDS: DEXAMETHASONE SOD PHOSPHATE 10 MG/ML VIAL IVP SCH ×2 (09:07→21:27)
[2020-03-13 11:34] VITALS: BP_SYST 123
[2020-03-13 15:30] VITALS: BP_SYST 101
[2020-03-13 21:25] VITALS: BP_SYST 105
[2020-03-14] MEDS: DEXAMETHASONE SOD PHOSPHATE 10 MG/ML VIAL IVP SCH ×2 (00:15→09:36)
[2020-03-14] MEDS: MAGNESIUM OXIDE 400 MG TABLET PO SCH ×2 (00:15→08:57)
[2020-03-14] MEDS: BACLOFEN 10 MG TABLET GT SCH ×3 (00:15→14:04)
[2020-03-14] MEDS: CHLORHEXIDINE GLUCONATE 15 ML/DOSE, 480 ML MM SCH ×2 (00:15→08:58)
[2020-03-14] MEDS: ERAVACYCLINE DI-HYDROCHLORIDE 65 MG in NS 250 ML IV SCH ×2 (00:15→09:21)
[2020-03-14] MEDS: ASCORBIC ACID 500 MG TABLET PO SCH ×2 (00:15→08:57)
[2020-03-14] MEDS: levETIRAcetam 500 MG TABLET GT SCH ×3 (00:15→14:03)
[2020-03-14] MEDS: GABAPENTIN 100 MG CAPSULE GT SCH ×3 (00:15→14:03)
[2020-03-14] MEDS: TAMSULOSIN HCL 0.4 MG CAP GT SCH ×2 (00:15→08:56)
[2020-03-14 00:49] VITALS: BP_SYST 101
[2020-03-14] MEDS: PEG 400/HYPROMELLOSE/GLYCERIN 15 ML DROPS EACH EYE SCH ×4 (00:49→17:16)
[2020-03-14 08:01] VITALS: BP_SYST 128
[2020-03-14] MEDS: CHOLECALCIFEROL (VITAMIN D3) 2,000 UNIT TABLET GT SCH (08:57)
[2020-03-14] MEDS: APIXABAN 2.5 MG TABLET GT SCH ×2 (08:57→20:15)
[2020-03-14] MEDS: BALSAM PERU/CASTOR OIL 60 GM OINT...G. TP SCH (08:58)
[2020-03-14] MEDS: DOCUSATE SODIUM 100 MG CAPSULE PO SCH (08:58)
[2020-03-14] MEDS: ALBUTEROL MDI INHALATION 8 GM INH INH SCH ×4 (09:00→21:01)
[2020-03-14 11:55] VITALS: BP_SYST 133
[2020-03-14 18:24] VITALS: BP_SYST 114
[2020-03-15] MEDS: GABAPENTIN 100 MG CAPSULE GT SCH ×3 (06:00→22:00)
[2020-03-15] MEDS: PEG 400/HYPROMELLOSE/GLYCERIN 15 ML DROPS EACH EYE SCH ×5 (06:00→17:43)
[2020-03-15 07:13] LABS: BASOPHILS % (AUTO) 0.1 % (0.0-2.0); HEMATOCRIT 32.7 % (36-54); HEMOGLOBIN 10.8 g/dL (14.0-18.0); LYMPHOCYTES # (AUTO) 0.3 K/uL (1.0-5.5); LYMPHOCYTES % (AUTO) 1.5 % (20.5-51.5); MEAN CORPUSCULAR HEMOGLOBIN 31 pg (27-31); MEAN CORPUSCULAR HGB CONC 33 % (32-36); MEAN CORPUSCULAR VOLUME 94 fL (79.0-98.0); MONOCYTES # (AUTO) 1.1 K/uL (0.0-1.0); MONOCYTES % (AUTO) 4.5 % (1.7-9.3); NEUTROPHILS # (AUTO) 21.9 K/uL (1.8-7.7); PLATELET COUNT (AUTO) 312 K/uL (130-430); RED BLOOD CELL COUNT(AUTO) 3.47 MIL/uL (4.2-6.2); RED CELL DISTRIBUTION WIDTH 15.1 % (9.0-15.0); WHITE BLOOD COUNT (AUTO) 23.4 K/uL (4.8-10.8)
[2020-03-15 07:47] LABS: CALCIUM 8.6 mg/dL (8.4-11.0); CREATININE 0.45 mg/dL (0.55-1.30); POTASSIUM 4.3 mmol/L (3.5-5.1); TOTAL BILIRUBIN 0.6 mg/dL (0.0-1.0)
[2020-03-15 07:51] VITALS: BP_SYST 120
[2020-03-15 08:26] LABS: NEUTROPHILS % (AUTO) 93.9 % (40.0-70.0)
[2020-03-15] MEDS: BACLOFEN 10 MG TABLET GT SCH ×3 (08:37→21:10)
[2020-03-15] MEDS: CHOLECALCIFEROL (VITAMIN D3) 2,000 UNIT TABLET GT SCH (08:38)
[2020-03-15] MEDS: BALSAM PERU/CASTOR OIL 60 GM OINT...G. TP SCH (08:38)
[2020-03-15] MEDS: ASCORBIC ACID 500 MG TABLET PO SCH ×2 (08:38→21:10)
[2020-03-15] MEDS: MAGNESIUM OXIDE 400 MG TABLET PO SCH ×2 (08:38→21:10)
[2020-03-15] MEDS: DOCUSATE SODIUM 100 MG CAPSULE PO SCH (08:38)
[2020-03-15] MEDS: CHLORHEXIDINE GLUCONATE 15 ML/DOSE, 480 ML MM SCH ×2 (08:39→21:10)
[2020-03-15] MEDS: APIXABAN 2.5 MG TABLET GT SCH ×2 (08:39→21:10)
[2020-03-15] MEDS: levETIRAcetam 500 MG TABLET GT SCH ×3 (08:39→21:10)
[2020-03-15] MEDS: TAMSULOSIN HCL 0.4 MG CAP GT SCH ×2 (08:39→21:10)
[2020-03-15] MEDS: ERAVACYCLINE DI-HYDROCHLORIDE 65 MG in NS 250 ML IV SCH (09:39)
[2020-03-15] MEDS: ALBUTEROL MDI INHALATION 8 GM INH INH SCH ×4 (09:47→21:16)
[2020-03-15 10:09] VITALS: BP_SYST 120
[2020-03-15] MEDS: DEXAMETHASONE SOD PHOSPHATE 10 MG/ML VIAL IVP SCH ×2 (10:39→22:00)
[2020-03-15 12:07] VITALS: BP_SYST 126
[2020-03-15] MEDS: D5W 1,000 ML IV SCH (12:50)
[2020-03-15 16:06] VITALS: BP_SYST 115
[2020-03-15 16:07] VITALS: BP_SYST 120
[2020-03-15 20:00] VITALS: BP_SYST 128
[2020-03-16] MEDS: PEG 400/HYPROMELLOSE/GLYCERIN 15 ML DROPS EACH EYE SCH ×4 (00:15→23:09)
[2020-03-16 00:46] VITALS: BP_SYST 123
[2020-03-16] MEDS: D5W 1,000 ML IV SCH ×2 (04:25→22:44)
[2020-03-16] MEDS: GABAPENTIN 100 MG CAPSULE GT SCH ×3 (06:19→22:43)
[2020-03-16 07:25] LABS: BASOPHILS # (AUTO) 0.1 K/uL (0.0-0.2); BASOPHILS % (AUTO) 0.3 % (0.0-2.0); EOSINOPHILS # (AUTO) 0.2 K/uL (0.0-0.4); EOSINOPHILS % (AUTO) 0.8 % (0.0-4.0); HEMATOCRIT 28.6 % (36-54); HEMOGLOBIN 9.5 g/dL (14.0-18.0); LYMPHOCYTES # (AUTO) 0.8 K/uL (1.0-5.5); LYMPHOCYTES % (AUTO) 3.3 % (20.5-51.5); MEAN CORPUSCULAR HEMOGLOBIN 32 pg (27-31); MEAN CORPUSCULAR HGB CONC 33 % (32-36); MEAN CORPUSCULAR VOLUME 95 fL (79.0-98.0); MONOCYTES % (AUTO) 4.3 % (1.7-9.3); NEUTROPHILS # (AUTO) 21.1 K/uL (1.8-7.7); NEUTROPHILS % (AUTO) 91.3 % (40.0-70.0); PLATELET COUNT (AUTO) 287 K/uL (130-430); RED BLOOD CELL COUNT(AUTO) 3.02 MIL/uL (4.2-6.2); RED CELL DISTRIBUTION WIDTH 15.4 % (9.0-15.0); WHITE BLOOD COUNT (AUTO) 23.1 K/uL (4.8-10.8)
[2020-03-16 07:47] LABS: CALCIUM 8.5 mg/dL (8.4-11.0); CREATININE 0.46 mg/dL (0.55-1.30); POTASSIUM 4.3 mmol/L (3.5-5.1)
[2020-03-16 08:00] VITALS: BP_SYST 112
[2020-03-16] MEDS: CHOLECALCIFEROL (VITAMIN D3) 2,000 UNIT TABLET GT SCH (08:40)
[2020-03-16] MEDS: levETIRAcetam 500 MG TABLET GT SCH ×3 (08:40→22:43)
[2020-03-16] MEDS: DOCUSATE SODIUM 100 MG CAPSULE PO SCH (08:40)
[2020-03-16] MEDS: TAMSULOSIN HCL 0.4 MG CAP GT SCH ×2 (08:40→22:43)
[2020-03-16] MEDS: BACLOFEN 10 MG TABLET GT SCH ×3 (08:41→22:43)
[2020-03-16] MEDS: MAGNESIUM OXIDE 400 MG TABLET PO SCH ×2 (08:41→22:43)
[2020-03-16] MEDS: ASCORBIC ACID 500 MG TABLET PO SCH ×2 (08:41→22:43)
[2020-03-16] MEDS: APIXABAN 2.5 MG TABLET GT SCH ×2 (08:42→23:09)
[2020-03-16] MEDS: CHLORHEXIDINE GLUCONATE 15 ML/DOSE, 480 ML MM SCH ×2 (08:44→22:43)
[2020-03-16] MEDS: DEXAMETHASONE SOD PHOSPHATE 10 MG/ML VIAL IVP SCH ×2 (08:44→22:44)
[2020-03-16] MEDS: BALSAM PERU/CASTOR OIL 60 GM OINT...G. TP SCH (08:44)
[2020-03-16] MEDS: ALBUTEROL MDI INHALATION 8 GM INH INH SCH ×4 (09:22→20:14)
[2020-03-16 12:13] VITALS: BP_SYST 117
[2020-03-16 16:00] VITALS: BP_SYST 117
[2020-03-16 22:00] VITALS: BP_SYST 113
[2020-03-17 04:00] VITALS: BP_SYST 109
[2020-03-17] MEDS: PEG 400/HYPROMELLOSE/GLYCERIN 15 ML DROPS EACH EYE SCH ×3 (05:28→17:00)
[2020-03-17] MEDS: GABAPENTIN 100 MG CAPSULE GT SCH ×3 (05:28→21:35)
[2020-03-17 06:45] LABS: BASOPHILS # (AUTO) 0.1 K/uL (0.0-0.2); BASOPHILS % (AUTO) 0.4 % (0.0-2.0); HEMOGLOBIN 10.2 g/dL (14.0-18.0); LYMPHOCYTES # (AUTO) 0.4 K/uL (1.0-5.5); LYMPHOCYTES % (AUTO) 1.4 % (20.5-51.5); MEAN CORPUSCULAR HEMOGLOBIN 31 pg (27-31); MEAN CORPUSCULAR HGB CONC 33 % (32-36); MEAN CORPUSCULAR VOLUME 95 fL (79.0-98.0); MONOCYTES # (AUTO) 0.7 K/uL (0.0-1.0); MONOCYTES % (AUTO) 2.8 % (1.7-9.3); NEUTROPHILS # (AUTO) 25.7 K/uL (1.8-7.7); NEUTROPHILS % (AUTO) 95.4 % (40.0-70.0); PLATELET COUNT (AUTO) 320 K/uL (130-430); RED BLOOD CELL COUNT(AUTO) 3.27 MIL/uL (4.2-6.2)
[2020-03-17 07:37] LABS: CALCIUM 8.5 mg/dL (8.4-11.0); CREATININE 0.43 mg/dL (0.55-1.30); POTASSIUM 4.3 mmol/L (3.5-5.1)
[2020-03-17] MEDS: ALBUTEROL MDI INHALATION 8 GM INH INH SCH ×4 (08:55→21:05)
[2020-03-17 09:50] VITALS: BP_SYST 121
[2020-03-17] MEDS: DEXAMETHASONE SOD PHOSPHATE 10 MG/ML VIAL IVP SCH ×2 (09:50→21:36)
[2020-03-17] MEDS: BALSAM PERU/CASTOR OIL 60 GM OINT...G. TP SCH (09:50)
[2020-03-17] MEDS: levETIRAcetam 500 MG TABLET GT SCH ×3 (09:50→21:35)
[2020-03-17] MEDS: BACLOFEN 10 MG TABLET GT SCH ×3 (09:50→21:35)
[2020-03-17] MEDS: CHOLECALCIFEROL (VITAMIN D3) 2,000 UNIT TABLET GT SCH (09:50)
[2020-03-17] MEDS: CHLORHEXIDINE GLUCONATE 15 ML/DOSE, 480 ML MM SCH ×2 (09:50→21:36)
[2020-03-17] MEDS: DOCUSATE SODIUM 100 MG CAPSULE PO SCH (09:50)
[2020-03-17] MEDS: TAMSULOSIN HCL 0.4 MG CAP GT SCH ×2 (09:50→21:35)
[2020-03-17] MEDS: MAGNESIUM OXIDE 400 MG TABLET PO SCH ×2 (09:50→21:35)
[2020-03-17] MEDS: ASCORBIC ACID 500 MG TABLET PO SCH ×2 (09:50→21:36)
[2020-03-17] MEDS: APIXABAN 2.5 MG TABLET GT SCH ×2 (09:50→21:36)
[2020-03-17 11:26] VITALS: BP_SYST 123
[2020-03-17] MEDS: D5W 1,000 ML IV SCH (12:39)
[2020-03-17 15:35] VITALS: BP_SYST 140
[2020-03-17 20:00] VITALS: BP_SYST 112
[2020-03-18 00:12] VITALS: BP_SYST 117
[2020-03-18] MEDS: PEG 400/HYPROMELLOSE/GLYCERIN 15 ML DROPS EACH EYE SCH ×4 (00:12→17:25)
[2020-03-18 04:26] LABS: BASOPHILS # (AUTO) 0.3 K/uL (0.0-0.2); EOSINOPHILS % (AUTO) 0.1 % (0.0-4.0); HEMATOCRIT 29.5 % (36-54); HEMOGLOBIN 9.7 g/dL (14.0-18.0); LYMPHOCYTES # (AUTO) 0.4 K/uL (1.0-5.5); LYMPHOCYTES % (AUTO) 1.6 % (20.5-51.5); MEAN CORPUSCULAR HEMOGLOBIN 31 pg (27-31); MEAN CORPUSCULAR HGB CONC 33 % (32-36); MEAN CORPUSCULAR VOLUME 95 fL (79.0-98.0); MONOCYTES # (AUTO) 0.5 K/uL (0.0-1.0); MONOCYTES % (AUTO) 2.1 % (1.7-9.3); NEUTROPHILS # (AUTO) 25.4 K/uL (1.8-7.7); NEUTROPHILS % (AUTO) 95.2 % (40.0-70.0); PLATELET COUNT (AUTO) 294 K/uL (130-430); RED BLOOD CELL COUNT(AUTO) 3.12 MIL/uL (4.2-6.2); RED CELL DISTRIBUTION WIDTH 15.3 % (9.0-15.0); WHITE BLOOD COUNT (AUTO) 26.7 K/uL (4.8-10.8)
[2020-03-18 04:43] LABS: CALCIUM 8.3 mg/dL (8.4-11.0); CREATININE 0.46 mg/dL (0.55-1.30); POTASSIUM 4.4 mmol/L (3.5-5.1)
[2020-03-18] MEDS: D5W 1,000 ML IV SCH (05:35)
[2020-03-18] MEDS: GABAPENTIN 100 MG CAPSULE GT SCH ×3 (05:35→22:00)
[2020-03-18] MEDS: DOCUSATE SODIUM 100 MG CAPSULE PO SCH (09:00)
[2020-03-18] MEDS: ALBUTEROL MDI INHALATION 8 GM INH INH SCH ×4 (09:00→23:03)
[2020-03-18] MEDS ORDERED: FUROSEMIDE 40 MG/4 ML VIAL ONE (09:25)
[2020-03-18] MEDS: TAMSULOSIN HCL 0.4 MG CAP GT SCH ×2 (09:28→21:00)
[2020-03-18] MEDS: BACLOFEN 10 MG TABLET GT SCH ×3 (09:28→21:00)
[2020-03-18] MEDS: BALSAM PERU/CASTOR OIL 60 GM OINT...G. TP SCH (09:29)
[2020-03-18] MEDS: CHLORHEXIDINE GLUCONATE 15 ML/DOSE, 480 ML MM SCH ×2 (09:29→21:00)
[2020-03-18] MEDS: MAGNESIUM OXIDE 400 MG TABLET PO SCH ×2 (09:29→21:00)
[2020-03-18] MEDS: CHOLECALCIFEROL (VITAMIN D3) 2,000 UNIT TABLET GT SCH (09:29)
[2020-03-18] MEDS: ASCORBIC ACID 500 MG TABLET PO SCH ×2 (09:29→21:00)
[2020-03-18] MEDS: levETIRAcetam 500 MG TABLET GT SCH ×3 (09:29→21:00)
[2020-03-18] MEDS: APIXABAN 2.5 MG TABLET GT SCH ×2 (09:31→21:00)
[2020-03-18] MEDS: DEXAMETHASONE SOD PHOSPHATE 10 MG/ML VIAL IVP SCH ×2 (11:05→22:30)
[2020-03-18 11:41] VITALS: BP_SYST 140
[2020-03-18 12:19] VITALS: BP_SYST 140
[2020-03-18 15:33] VITALS: BP_SYST 121
[2020-03-18 20:00] VITALS: BP_SYST 109
[2020-03-19] VITALS: BP_SYST 107
[2020-03-19] MEDS: ALBUTEROL MDI INHALATION 8 GM INH INH SCH ×4 (04:05→20:00)
[2020-03-19] MEDS: PEG 400/HYPROMELLOSE/GLYCERIN 15 ML DROPS EACH EYE SCH ×4 (06:03→18:12)
[2020-03-19] MEDS: GABAPENTIN 100 MG CAPSULE GT SCH ×3 (06:03→22:43)
[2020-03-19 07:56] LABS: BASOPHILS % (AUTO) 0.2 % (0.0-2.0); EOSINOPHILS % (AUTO) 0.1 % (0.0-4.0); HEMATOCRIT 30.7 % (36-54); HEMOGLOBIN 10.1 g/dL (14.0-18.0); LYMPHOCYTES # (AUTO) 0.5 K/uL (1.0-5.5); LYMPHOCYTES % (AUTO) 2.5 % (20.5-51.5); MEAN CORPUSCULAR HEMOGLOBIN 31 pg (27-31); MEAN CORPUSCULAR HGB CONC 33 % (32-36); MEAN CORPUSCULAR VOLUME 95 fL (79.0-98.0); MONOCYTES # (AUTO) 0.4 K/uL (0.0-1.0); MONOCYTES % (AUTO) 1.9 % (1.7-9.3); NEUTROPHILS # (AUTO) 20.8 K/uL (1.8-7.7); NEUTROPHILS % (AUTO) 95.3 % (40.0-70.0); PLATELET COUNT (AUTO) 268 K/uL (130-430); RED BLOOD CELL COUNT(AUTO) 3.23 MIL/uL (4.2-6.2); RED CELL DISTRIBUTION WIDTH 15.9 % (9.0-15.0); WHITE BLOOD COUNT (AUTO) 21.8 K/uL (4.8-10.8)
[2020-03-19 08:00] VITALS: BP_SYST 108
[2020-03-19 08:12] LABS: ALANINE AMINOTRANSFERASE 36 U/L (12-78); ALBUMIN 1.9 g/dL (3.4-4.8); ASPARTATE AMINOTRANSFERASE 25 U/L (10-37); CALCIUM 8.3 mg/dL (8.4-11.0); CHLORIDE 100 mmol/L (98-107); CREATININE 0.36 mg/dL (0.55-1.30); GLUCOSE 122 mg/dL (70-99); POTASSIUM 4.4 mmol/L (3.5-5.1); SODIUM SERUM 139 mmol/L (136-145); TOTAL BILIRUBIN 0.5 mg/dL (0.0-1.0)
[2020-03-19 08:32] LABS: GFR AFRICAN AMERICAN 315 mL/min (>90)
[2020-03-19 08:59] LABS: ANION GAP < 3 (5-15)
[2020-03-19] MEDS: DOCUSATE SODIUM 100 MG CAPSULE PO SCH (09:00)
[2020-03-19] MEDS: CHLORHEXIDINE GLUCONATE 15 ML/DOSE, 480 ML MM SCH ×2 (09:54→21:00)
[2020-03-19] MEDS: levETIRAcetam 500 MG TABLET GT SCH ×3 (09:54→21:00)
[2020-03-19] MEDS: TAMSULOSIN HCL 0.4 MG CAP GT SCH ×2 (09:54→21:00)
[2020-03-19] MEDS: CHOLECALCIFEROL (VITAMIN D3) 2,000 UNIT TABLET GT SCH (09:54)
[2020-03-19] MEDS: BACLOFEN 10 MG TABLET GT SCH ×3 (09:54→21:00)
[2020-03-19] MEDS: ASCORBIC ACID 500 MG TABLET PO SCH ×2 (09:55→21:00)
[2020-03-19] MEDS: DEXAMETHASONE SOD PHOSPHATE 10 MG/ML VIAL IVP SCH ×2 (09:55→22:46)
[2020-03-19] MEDS: MAGNESIUM OXIDE 400 MG TABLET PO SCH ×2 (09:55→21:00)
[2020-03-19] MEDS: BALSAM PERU/CASTOR OIL 60 GM OINT...G. TP SCH (09:55)
[2020-03-19] MEDS: APIXABAN 2.5 MG TABLET GT SCH ×2 (09:56→21:00)
[2020-03-19 10:20] LABS: UREA NITROGEN, BLOOD 24 mg/dL (8-21)
[2020-03-19 11:35] VITALS: BP_SYST 98
[2020-03-19 15:43] VITALS: BP_SYST 93
[2020-03-19] MEDS: D5W 1,000 ML IV SCH ×2 (18:12)
[2020-03-19 20:00] VITALS: BP_SYST 102
[2020-03-19] MEDS: NEOMY SULF/BACITRA/POLYMYXIN B 3.5 GM OPHT. OINT. OP SCH (22:44)
[2020-03-20] VITALS: BP_SYST 115
[2020-03-20 04:00] VITALS: BP_SYST 137
[2020-03-20] MEDS: PEG 400/HYPROMELLOSE/GLYCERIN 15 ML DROPS EACH EYE SCH ×5 (07:08→23:55)
[2020-03-20] MEDS: GABAPENTIN 100 MG CAPSULE GT SCH ×3 (07:08→22:35)
[2020-03-20] MEDS: NEOMY SULF/BACITRA/POLYMYXIN B 3.5 GM OPHT. OINT. OP SCH ×5 (07:08→22:35)
[2020-03-20] MEDS: ALBUTEROL MDI INHALATION 8 GM INH INH SCH ×2 (07:48→20:21)
[2020-03-20 08:00] VITALS: BP_SYST 107
[2020-03-20] MEDS: DOCUSATE SODIUM 100 MG CAPSULE PO SCH (09:00)
[2020-03-20] MEDS: TAMSULOSIN HCL 0.4 MG CAP GT SCH ×2 (10:10→21:00)
[2020-03-20] MEDS: CHLORHEXIDINE GLUCONATE 15 ML/DOSE, 480 ML MM SCH ×2 (10:10→21:00)
[2020-03-20] MEDS: levETIRAcetam 500 MG TABLET GT SCH ×3 (10:10→21:00)
[2020-03-20] MEDS: BACLOFEN 10 MG TABLET GT SCH ×3 (10:10→21:00)
[2020-03-20] MEDS: CHOLECALCIFEROL (VITAMIN D3) 2,000 UNIT TABLET GT SCH (10:10)
[2020-03-20] MEDS: DEXAMETHASONE SOD PHOSPHATE 10 MG/ML VIAL IVP SCH ×2 (10:11→22:35)
[2020-03-20] MEDS: MAGNESIUM OXIDE 400 MG TABLET PO SCH ×2 (10:11→21:00)
[2020-03-20] MEDS: BALSAM PERU/CASTOR OIL 60 GM OINT...G. TP SCH (10:11)
[2020-03-20] MEDS: ASCORBIC ACID 500 MG TABLET PO SCH ×2 (10:11→21:00)
[2020-03-20] MEDS: APIXABAN 2.5 MG TABLET GT SCH ×2 (10:23→21:00)
[2020-03-20] MEDS: D5W 1,000 ML IV SCH ×2 (10:34→23:55)
[2020-03-20] MEDS ORDERED: FUROSEMIDE 40 MG/4 ML VIAL ONE (11:54)
[2020-03-20 12:18] VITALS: BP_SYST 155
[2020-03-20 16:18] VITALS: BP_SYST 145
[2020-03-20 20:00] VITALS: BP_SYST 136
[2020-03-21] VITALS: BP_SYST 121
[2020-03-21] MEDS: NEOMY SULF/BACITRA/POLYMYXIN B 3.5 GM OPHT. OINT. OP SCH ×5 (05:32→22:00)
[2020-03-21] MEDS: PEG 400/HYPROMELLOSE/GLYCERIN 15 ML DROPS EACH EYE SCH ×3 (05:32→18:20)
[2020-03-21] MEDS: GABAPENTIN 100 MG CAPSULE GT SCH ×3 (05:32→22:00)
[2020-03-21 06:52] LABS: BASOPHILS % (AUTO) 0.1 % (0.0-2.0); HEMATOCRIT 29.3 % (36-54); HEMOGLOBIN 9.7 g/dL (14.0-18.0); LYMPHOCYTES # (AUTO) 0.4 K/uL (1.0-5.5); LYMPHOCYTES % (AUTO) 1.2 % (20.5-51.5); MEAN CORPUSCULAR HEMOGLOBIN 31 pg (27-31); MEAN CORPUSCULAR HGB CONC 33 % (32-36); MEAN CORPUSCULAR VOLUME 95 fL (79.0-98.0); MONOCYTES % (AUTO) 3.4 % (1.7-9.3); NEUTROPHILS # (AUTO) 27.9 K/uL (1.8-7.7); NEUTROPHILS % (AUTO) 95.3 % (40.0-70.0); PLATELET COUNT (AUTO) 264 K/uL (130-430); RED BLOOD CELL COUNT(AUTO) 3.09 MIL/uL (4.2-6.2); RED CELL DISTRIBUTION WIDTH 16.4 % (9.0-15.0); WHITE BLOOD COUNT (AUTO) 29.3 K/uL (4.8-10.8)
[2020-03-21 07:52] LABS: ALBUMIN 1.9 g/dL (3.4-4.8); CALCIUM 8.8 mg/dL (8.4-11.0); CREATININE 0.32 mg/dL (0.55-1.30); POTASSIUM 4.2 mmol/L (3.5-5.1); TOTAL BILIRUBIN 0.3 mg/dL (0.0-1.0)
[2020-03-21] MEDS: ALBUTEROL MDI INHALATION 8 GM INH INH SCH (07:59)
[2020-03-21 08:00] VITALS: BP_SYST 102
[2020-03-21] MEDS: BACLOFEN 10 MG TABLET GT SCH ×3 (08:42→21:00)
[2020-03-21] MEDS: TAMSULOSIN HCL 0.4 MG CAP GT SCH ×2 (08:42→21:00)
[2020-03-21] MEDS: CHOLECALCIFEROL (VITAMIN D3) 2,000 UNIT TABLET GT SCH (08:42)
[2020-03-21] MEDS: MAGNESIUM OXIDE 400 MG TABLET PO SCH ×2 (08:42→21:00)
[2020-03-21] MEDS: CHLORHEXIDINE GLUCONATE 15 ML/DOSE, 480 ML MM SCH ×2 (08:42→21:00)
[2020-03-21] MEDS: levETIRAcetam 500 MG TABLET GT SCH ×3 (08:42→21:00)
[2020-03-21] MEDS: DOCUSATE SODIUM 100 MG CAPSULE PO SCH (08:42)
[2020-03-21] MEDS: ASCORBIC ACID 500 MG TABLET PO SCH ×2 (08:43→21:00)
[2020-03-21] MEDS: BALSAM PERU/CASTOR OIL 60 GM OINT...G. TP SCH (08:43)
[2020-03-21] MEDS: APIXABAN 2.5 MG TABLET GT SCH ×2 (08:44→21:00)
[2020-03-21] MEDS: DEXAMETHASONE SOD PHOSPHATE 10 MG/ML VIAL IVP SCH ×2 (09:45→22:30)
[2020-03-21 12:30] VITALS: BP_SYST 93
[2020-03-21 16:00] VITALS: BP_SYST 122
[2020-03-21] MEDS: D5W 1,000 ML IV SCH (17:45)
[2020-03-21 20:00] VITALS: BP_SYST 115
[2020-03-22] VITALS: BP_SYST 118
[2020-03-22] MEDS: PEG 400/HYPROMELLOSE/GLYCERIN 15 ML DROPS EACH EYE SCH (00:36)
[2020-03-22] MEDS: NEOMY SULF/BACITRA/POLYMYXIN B 3.5 GM OPHT. OINT. OP SCH ×2 (06:00→21:16)
[2020-03-22 06:05] LABS: CALCIUM 8.7 mg/dL (8.4-11.0); CREATININE 0.39 mg/dL (0.55-1.30); PHOSPHORUS 3.7 mg/dL (2.7-4.5); POTASSIUM 4.2 mmol/L (3.5-5.1)
[2020-03-22] MEDS: GABAPENTIN 100 MG CAPSULE GT SCH ×3 (06:05→21:14)
[2020-03-22 06:39] LABS: HEMATOCRIT 31.7 % (36-54); HEMOGLOBIN 10.4 g/dL (14.0-18.0); MEAN CORPUSCULAR HEMOGLOBIN 32 pg (27-31); MEAN CORPUSCULAR HGB CONC 33 % (32-36); MEAN CORPUSCULAR VOLUME 96 fL (79.0-98.0); PLATELET COUNT (AUTO) 291 K/uL (130-430); RED BLOOD CELL COUNT(AUTO) 3.29 MIL/uL (4.2-6.2); RED CELL DISTRIBUTION WIDTH 18.1 % (9.0-15.0)
[2020-03-22] MEDS: ALBUTEROL MDI INHALATION 8 GM INH INH SCH ×3 (07:59→19:16)
[2020-03-22 08:00] VITALS: BP_SYST 107
[2020-03-22 08:39] LABS: WHITE BLOOD COUNT (AUTO) 32.5 K/uL (4.8-10.8)
[2020-03-22] MEDS: DOCUSATE SODIUM 100 MG CAPSULE PO SCH (09:00)
[2020-03-22] MEDS: BACLOFEN 10 MG TABLET GT SCH ×3 (10:01→21:14)
[2020-03-22] MEDS: CHLORHEXIDINE GLUCONATE 15 ML/DOSE, 480 ML MM SCH ×2 (10:02→21:15)
[2020-03-22] MEDS: ASCORBIC ACID 500 MG TABLET PO SCH ×2 (10:02→21:14)
[2020-03-22] MEDS: BALSAM PERU/CASTOR OIL 60 GM OINT...G. TP SCH (10:02)
[2020-03-22] MEDS: MAGNESIUM OXIDE 400 MG TABLET PO SCH ×2 (10:02→21:14)
[2020-03-22] MEDS: TAMSULOSIN HCL 0.4 MG CAP GT SCH ×2 (10:02→21:14)
[2020-03-22] MEDS: CHOLECALCIFEROL (VITAMIN D3) 2,000 UNIT TABLET GT SCH (10:02)
[2020-03-22] MEDS: levETIRAcetam 500 MG TABLET GT SCH ×3 (10:02→21:14)
[2020-03-22] MEDS: DEXAMETHASONE SOD PHOSPHATE 10 MG/ML VIAL IVP SCH ×2 (10:03→22:28)
[2020-03-22] MEDS: APIXABAN 2.5 MG TABLET GT SCH ×2 (10:04→21:22)
[2020-03-22] MEDS: D5W 1,000 ML IV SCH (11:22)
[2020-03-22 11:59] LABS: BAND % (MANUAL) 13 % (0-6); BASOPHILS % (MANUAL) 0 % (0-2); EOSINOPHILS % (MANUAL) 0 % (0-7); LYMPHOCYTES % (MANUAL) 0 % (20-46); MONOCYTES % (MANUAL) 1 % (0-11)
[2020-03-22 12:32] VITALS: BP_SYST 97
[2020-03-22 16:00] VITALS: BP_SYST 117
[2020-03-22] MEDS: PIPERACILLIN/TAZO 2.25G/DEX-IS 50 ML IV SCH (18:09)
[2020-03-22 21:10] VITALS: BP_SYST 109
[2020-03-23] MEDS: PIPERACILLIN/TAZO 2.25G/DEX-IS 50 ML IV SCH ×5 (00:23→23:30)
[2020-03-23] MEDS: PEG 400/HYPROMELLOSE/GLYCERIN 15 ML DROPS EACH EYE SCH ×5 (00:25→23:30)
[2020-03-23 00:26] VITALS: BP_SYST 101
[2020-03-23] MEDS: D5W 1,000 ML IV SCH ×2 (03:19→17:56)
[2020-03-23] MEDS: GABAPENTIN 100 MG CAPSULE GT SCH ×3 (05:39→21:30)
[2020-03-23] MEDS: NEOMY SULF/BACITRA/POLYMYXIN B 3.5 GM OPHT. OINT. OP SCH ×5 (05:40→22:00)
[2020-03-23] MEDS: ALBUTEROL MDI INHALATION 8 GM INH INH SCH ×4 (07:07→18:53)
[2020-03-23 07:41] LABS: BASOPHILS # (AUTO) 0.1 K/uL (0.0-0.2); BASOPHILS % (AUTO) 0.3 % (0.0-2.0); HEMOGLOBIN 8.5 g/dL (14.0-18.0); LYMPHOCYTES # (AUTO) 0.3 K/uL (1.0-5.5); LYMPHOCYTES % (AUTO) 1.6 % (20.5-51.5); MEAN CORPUSCULAR HEMOGLOBIN 32 pg (27-31); MEAN CORPUSCULAR HGB CONC 34 % (32-36); MEAN CORPUSCULAR VOLUME 96 fL (79.0-98.0); MONOCYTES # (AUTO) 0.5 K/uL (0.0-1.0); MONOCYTES % (AUTO) 2.4 % (1.7-9.3); NEUTROPHILS # (AUTO) 18.3 K/uL (1.8-7.7); NEUTROPHILS % (AUTO) 95.7 % (40.0-70.0); PLATELET COUNT (AUTO) 241 K/uL (130-430); RED BLOOD CELL COUNT(AUTO) 2.61 MIL/uL (4.2-6.2); WHITE BLOOD COUNT (AUTO) 19.1 K/uL (4.8-10.8)
[2020-03-23 07:51] LABS: CALCIUM 8.5 mg/dL (8.4-11.0); CHLORIDE 95 mmol/L (98-107); CREATININE 0.38 mg/dL (0.55-1.30); GLUCOSE 191 mg/dL (70-99); POTASSIUM 4.3 mmol/L (3.5-5.1); SODIUM SERUM 134 mmol/L (136-145); UREA NITROGEN, BLOOD 26 mg/dL (8-21)
[2020-03-23 08:04] VITALS: BP_SYST 100
[2020-03-23 08:05] LABS: ANION GAP < 3 (5-15); GFR AFRICAN AMERICAN 296 mL/min (>90)
[2020-03-23] MEDS: BACLOFEN 10 MG TABLET GT SCH ×3 (09:39→21:30)
[2020-03-23] MEDS: levETIRAcetam 500 MG TABLET GT SCH ×3 (09:39→21:30)
[2020-03-23] MEDS: APIXABAN 2.5 MG TABLET GT SCH ×2 (09:39→21:30)
[2020-03-23] MEDS: TAMSULOSIN HCL 0.4 MG CAP GT SCH ×2 (09:40→21:30)
[2020-03-23] MEDS: MAGNESIUM OXIDE 400 MG TABLET PO SCH ×2 (09:40→21:30)
[2020-03-23] MEDS: DEXAMETHASONE SOD PHOSPHATE 10 MG/ML VIAL IVP SCH ×2 (09:40→22:09)
[2020-03-23] MEDS: CHOLECALCIFEROL (VITAMIN D3) 2,000 UNIT TABLET GT SCH (09:40)
[2020-03-23] MEDS: ASCORBIC ACID 500 MG TABLET PO SCH ×2 (09:40→21:30)
[2020-03-23] MEDS: DOCUSATE SODIUM 100 MG CAPSULE PO SCH (09:40)
[2020-03-23] MEDS: BALSAM PERU/CASTOR OIL 60 GM OINT...G. TP SCH (09:41)
[2020-03-23] MEDS: CHLORHEXIDINE GLUCONATE 15 ML/DOSE, 480 ML MM SCH ×2 (09:42→21:30)
[2020-03-23 11:27] VITALS: BP_SYST 149
[2020-03-23 15:30] VITALS: BP_SYST 106
[2020-03-24] MEDS: PIPERACILLIN/TAZO 2.25G/DEX-IS 50 ML IV SCH ×3 (05:31→17:23)
[2020-03-24] MEDS: NEOMY SULF/BACITRA/POLYMYXIN B 3.5 GM OPHT. OINT. OP SCH ×5 (05:32→21:45)
[2020-03-24] MEDS: PEG 400/HYPROMELLOSE/GLYCERIN 15 ML DROPS EACH EYE SCH ×3 (05:32→17:23)
[2020-03-24] MEDS: GABAPENTIN 100 MG CAPSULE GT SCH ×3 (05:44→21:45)
[2020-03-24] MEDS: ALBUTEROL MDI INHALATION 8 GM INH INH SCH ×4 (07:45→19:29)
[2020-03-24 08:00] VITALS: BP_SYST 106
[2020-03-24 08:29] LABS: HEMATOCRIT 27.4 % (36-54); HEMOGLOBIN 9.1 g/dL (14.0-18.0); MEAN CORPUSCULAR HEMOGLOBIN 32 pg (27-31); MEAN CORPUSCULAR HGB CONC 33 % (32-36); MEAN CORPUSCULAR VOLUME 96 fL (79.0-98.0); PLATELET COUNT (AUTO) 199 K/uL (130-430); RED BLOOD CELL COUNT(AUTO) 2.85 MIL/uL (4.2-6.2); WHITE BLOOD COUNT (AUTO) 16.5 K/uL (4.8-10.8)
[2020-03-24 08:44] LABS: ALBUMIN 1.5 g/dL (3.4-4.8); CALCIUM 8.1 mg/dL (8.4-11.0); CREATININE 0.23 mg/dL (0.55-1.30); POTASSIUM 4.4 mmol/L (3.5-5.1); TOTAL BILIRUBIN 0.3 mg/dL (0.0-1.0)
[2020-03-24] MEDS: D5W 1,000 ML IV SCH (09:30)
[2020-03-24] MEDS: BACLOFEN 10 MG TABLET GT SCH ×3 (10:16→21:45)
[2020-03-24] MEDS: APIXABAN 2.5 MG TABLET GT SCH ×2 (10:17→21:45)
[2020-03-24] MEDS: BALSAM PERU/CASTOR OIL 60 GM OINT...G. TP SCH (10:17)
[2020-03-24] MEDS: TAMSULOSIN HCL 0.4 MG CAP GT SCH ×2 (10:17→21:45)
[2020-03-24] MEDS: ASCORBIC ACID 500 MG TABLET PO SCH ×2 (10:17→21:45)
[2020-03-24] MEDS: CHLORHEXIDINE GLUCONATE 15 ML/DOSE, 480 ML MM SCH ×2 (10:17→21:45)
[2020-03-24] MEDS: MAGNESIUM OXIDE 400 MG TABLET PO SCH ×2 (10:17→21:45)
[2020-03-24] MEDS: levETIRAcetam 500 MG TABLET GT SCH ×3 (10:17→21:45)
[2020-03-24] MEDS: CHOLECALCIFEROL (VITAMIN D3) 2,000 UNIT TABLET GT SCH (10:17)
[2020-03-24] MEDS: DOCUSATE SODIUM 100 MG CAPSULE PO SCH (10:17)
[2020-03-24] MEDS: DEXAMETHASONE SOD PHOSPHATE 10 MG/ML VIAL IVP SCH ×2 (10:18→22:00)
[2020-03-24 12:00] VITALS: BP_SYST 107
[2020-03-24 14:16] LABS: BAND % (MANUAL) 2 % (0-6); BASOPHILS % (MANUAL) 0 % (0-2); EOSINOPHILS % (MANUAL) 1 % (0-7); LYMPHOCYTES % (MANUAL) 5 % (20-46); MONOCYTES % (MANUAL) 7 % (0-11)
[2020-03-24 16:00] VITALS: BP_SYST 119
[2020-03-24 20:00] VITALS: BP_SYST 112
[2020-03-25] VITALS: BP_SYST 110
[2020-03-25] MEDS: PEG 400/HYPROMELLOSE/GLYCERIN 15 ML DROPS EACH EYE SCH ×5 (06:00→23:22)
[2020-03-25] MEDS: GABAPENTIN 100 MG CAPSULE GT SCH ×3 (06:00→21:46)
[2020-03-25] MEDS: PIPERACILLIN/TAZO 2.25G/DEX-IS 50 ML IV SCH ×5 (06:00→23:24)
[2020-03-25] MEDS: NEOMY SULF/BACITRA/POLYMYXIN B 3.5 GM OPHT. OINT. OP SCH ×5 (06:00→21:48)
[2020-03-25] MEDS: ALBUTEROL MDI INHALATION 8 GM INH INH SCH ×3 (07:21→16:06)
[2020-03-25 08:00] VITALS: BP_SYST 112
[2020-03-25] MEDS: BACLOFEN 10 MG TABLET GT SCH ×3 (08:11→21:46)
[2020-03-25] MEDS: DOCUSATE SODIUM 100 MG CAPSULE PO SCH (08:11)
[2020-03-25] MEDS: CHOLECALCIFEROL (VITAMIN D3) 2,000 UNIT TABLET GT SCH (08:11)
[2020-03-25] MEDS: CHLORHEXIDINE GLUCONATE 15 ML/DOSE, 480 ML MM SCH ×2 (08:11→21:46)
[2020-03-25] MEDS: levETIRAcetam 500 MG TABLET GT SCH ×3 (08:11→21:46)
[2020-03-25] MEDS: MAGNESIUM OXIDE 400 MG TABLET PO SCH ×2 (08:11→21:46)
[2020-03-25] MEDS: BALSAM PERU/CASTOR OIL 60 GM OINT...G. TP SCH (08:11)
[2020-03-25] MEDS: ASCORBIC ACID 500 MG TABLET PO SCH ×2 (08:11→21:46)
[2020-03-25] MEDS: TAMSULOSIN HCL 0.4 MG CAP GT SCH ×2 (08:11→21:46)
[2020-03-25 08:43] LABS: CALCIUM 8.2 mg/dL (8.4-11.0); CREATININE 0.26 mg/dL (0.55-1.30); POTASSIUM 4.9 mmol/L (3.5-5.1)
[2020-03-25 09:05] LABS: HEMATOCRIT 29.9 % (36-54); MEAN CORPUSCULAR HEMOGLOBIN 32 pg (27-31); MEAN CORPUSCULAR HGB CONC 33 % (32-36); MEAN CORPUSCULAR VOLUME 96 fL (79.0-98.0); PLATELET COUNT (AUTO) 237 K/uL (130-430); RED BLOOD CELL COUNT(AUTO) 3.12 MIL/uL (4.2-6.2); RED CELL DISTRIBUTION WIDTH 18.3 % (9.0-15.0); WHITE BLOOD COUNT (AUTO) 17.1 K/uL (4.8-10.8)
[2020-03-25] MEDS: APIXABAN 2.5 MG TABLET GT SCH ×2 (09:18→21:47)
[2020-03-25] MEDS: DEXAMETHASONE SOD PHOSPHATE 10 MG/ML VIAL IVP SCH ×2 (10:01→21:49)
[2020-03-25 11:32] VITALS: BP_SYST 124
[2020-03-25 13:08] LABS: BAND % (MANUAL) 4 % (0-6); BASOPHILS % (MANUAL) 0 % (0-2); EOSINOPHILS % (MANUAL) 0 % (0-7); LYMPHOCYTES % (MANUAL) 3 % (20-46); MONOCYTES % (MANUAL) 2 % (0-11)
[2020-03-25 16:15] VITALS: BP_SYST 124
[2020-03-25 20:00] VITALS: BP_SYST 121
[2020-03-26] VITALS: BP_SYST 128
[2020-03-26] MEDS: GABAPENTIN 100 MG CAPSULE GT SCH ×2 (05:28→14:47)
[2020-03-26] MEDS: PIPERACILLIN/TAZO 2.25G/DEX-IS 50 ML IV SCH ×3 (05:28→18:16)
[2020-03-26] MEDS: PEG 400/HYPROMELLOSE/GLYCERIN 15 ML DROPS EACH EYE SCH ×3 (05:28→18:17)
[2020-03-26] MEDS: NEOMY SULF/BACITRA/POLYMYXIN B 3.5 GM OPHT. OINT. OP SCH ×4 (05:29→18:16)
[2020-03-26 06:23] LABS: BASOPHILS % (AUTO) 0.1 % (0.0-2.0); HEMATOCRIT 27.9 % (36-54); HEMOGLOBIN 9.3 g/dL (14.0-18.0); LYMPHOCYTES # (AUTO) 0.3 K/uL (1.0-5.5); MEAN CORPUSCULAR HEMOGLOBIN 32 pg (27-31); MEAN CORPUSCULAR HGB CONC 33 % (32-36); MEAN CORPUSCULAR VOLUME 96 fL (79.0-98.0); MONOCYTES # (AUTO) 0.5 K/uL (0.0-1.0); MONOCYTES % (AUTO) 3.4 % (1.7-9.3); NEUTROPHILS # (AUTO) 13.5 K/uL (1.8-7.7); NEUTROPHILS % (AUTO) 94.5 % (40.0-70.0); PLATELET COUNT (AUTO) 267 K/uL (130-430); RED BLOOD CELL COUNT(AUTO) 2.91 MIL/uL (4.2-6.2); RED CELL DISTRIBUTION WIDTH 18.6 % (9.0-15.0); WHITE BLOOD COUNT (AUTO) 14.2 K/uL (4.8-10.8)
[2020-03-26 07:17] LABS: ALBUMIN 1.6 g/dL (3.4-4.8); CALCIUM 8.4 mg/dL (8.4-11.0); CREATININE 0.36 mg/dL (0.55-1.30); POTASSIUM 3.9 mmol/L (3.5-5.1); TOTAL BILIRUBIN 0.3 mg/dL (0.0-1.0)
[2020-03-26] MEDS: ALBUTEROL MDI INHALATION 8 GM INH INH SCH ×3 (07:25→16:00)
[2020-03-26 08:30] VITALS: BP_SYST 135
[2020-03-26] MEDS: DEXAMETHASONE SOD PHOSPHATE 10 MG/ML VIAL IVP SCH (10:01)
[2020-03-26] MEDS: CHOLECALCIFEROL (VITAMIN D3) 2,000 UNIT TABLET GT SCH (10:03)
[2020-03-26] MEDS: DOCUSATE SODIUM 100 MG CAPSULE PO SCH (10:03)
[2020-03-26] MEDS: ASCORBIC ACID 500 MG TABLET PO SCH (10:03)
[2020-03-26] MEDS: TAMSULOSIN HCL 0.4 MG CAP GT SCH (10:03)
[2020-03-26] MEDS: levETIRAcetam 500 MG TABLET GT SCH ×2 (10:03→14:47)
[2020-03-26] MEDS: BACLOFEN 10 MG TABLET GT SCH ×2 (10:03→14:47)
[2020-03-26] MEDS: MAGNESIUM OXIDE 400 MG TABLET PO SCH (10:03)
[2020-03-26] MEDS: APIXABAN 2.5 MG TABLET GT SCH (10:04)
[2020-03-26] MEDS: CHLORHEXIDINE GLUCONATE 15 ML/DOSE, 480 ML MM SCH (10:04)
[2020-03-26 11:31] VITALS: BP_SYST 135
[2020-03-26 15:38] VITALS: BP_SYST 134
[2020-03-26] MEDS: BALSAM PERU/CASTOR OIL 60 GM OINT...G. TP SCH (16:25)
[2020-03-26 20:00] VITALS: BP_SYST 130
[2020-03-27] VITALS: BP_SYST 125
[2020-03-27] MEDS: CHLORHEXIDINE GLUCONATE 15 ML/DOSE, 480 ML MM SCH ×3 (00:05→21:00)
[2020-03-27] MEDS: ASCORBIC ACID 500 MG TABLET PO SCH ×3 (00:08→21:00)
[2020-03-27] MEDS: MAGNESIUM OXIDE 400 MG TABLET PO SCH ×3 (00:08→21:00)
[2020-03-27] MEDS: PIPERACILLIN/TAZO 2.25G/DEX-IS 50 ML IV SCH ×4 (00:08→17:13)
[2020-03-27] MEDS: GABAPENTIN 100 MG CAPSULE GT SCH ×4 (00:08→22:00)
[2020-03-27] MEDS: levETIRAcetam 500 MG TABLET GT SCH ×4 (00:08→21:00)
[2020-03-27] MEDS: BACLOFEN 10 MG TABLET GT SCH ×4 (00:08→21:00)
[2020-03-27] MEDS: DEXAMETHASONE SOD PHOSPHATE 10 MG/ML VIAL IVP SCH ×3 (00:08→22:30)
[2020-03-27] MEDS: APIXABAN 2.5 MG TABLET GT SCH ×3 (00:09→21:00)
[2020-03-27] MEDS: NEOMY SULF/BACITRA/POLYMYXIN B 3.5 GM OPHT. OINT. OP SCH ×6 (00:10→22:00)
[2020-03-27] MEDS: TAMSULOSIN HCL 0.4 MG CAP GT SCH ×3 (01:07→21:00)
[2020-03-27] MEDS: PEG 400/HYPROMELLOSE/GLYCERIN 15 ML DROPS EACH EYE SCH ×4 (05:10→17:13)
[2020-03-27 08:00] VITALS: BP_SYST 106
[2020-03-27] MEDS: ALBUTEROL MDI INHALATION 8 GM INH INH SCH ×3 (08:30→15:46)
[2020-03-27] MEDS: CHOLECALCIFEROL (VITAMIN D3) 2,000 UNIT TABLET GT SCH (09:20)
[2020-03-27] MEDS: BALSAM PERU/CASTOR OIL 60 GM OINT...G. TP SCH (09:20)
[2020-03-27] MEDS: DOCUSATE SODIUM 100 MG CAPSULE PO SCH (09:20)
[2020-03-27 11:34] VITALS: BP_SYST 120
[2020-03-27 15:38] VITALS: BP_SYST 120
[2020-03-27 20:00] VITALS: BP_SYST 111
[2020-03-28] VITALS: BP_SYST 107
[2020-03-28] MEDS: PEG 400/HYPROMELLOSE/GLYCERIN 15 ML DROPS EACH EYE SCH ×6 (00:40→17:03)
[2020-03-28] MEDS: PIPERACILLIN/TAZO 2.25G/DEX-IS 50 ML IV SCH ×4 (00:41→17:03)
[2020-03-28] MEDS: ALBUTEROL MDI INHALATION 8 GM INH INH SCH ×5 (06:00→16:10)
[2020-03-28] MEDS: GABAPENTIN 100 MG CAPSULE GT SCH ×3 (06:00→21:37)
[2020-03-28] MEDS: NEOMY SULF/BACITRA/POLYMYXIN B 3.5 GM OPHT. OINT. OP SCH ×7 (07:08→22:00)
[2020-03-28 08:00] VITALS: BP_SYST 120
[2020-03-28] MEDS ORDERED: GASTROGRAFIN 120 ML ONE (08:20)
[2020-03-28] MEDS: BALSAM PERU/CASTOR OIL 60 GM OINT...G. TP SCH (10:34)
[2020-03-28] MEDS: DEXAMETHASONE SOD PHOSPHATE 10 MG/ML VIAL IVP SCH ×2 (10:34→21:40)
[2020-03-28] MEDS: CHLORHEXIDINE GLUCONATE 15 ML/DOSE, 480 ML MM SCH ×2 (10:35→21:36)
[2020-03-28 11:29] VITALS: BP_SYST 118
[2020-03-28] MEDS: BACLOFEN 10 MG TABLET GT SCH ×3 (11:49→21:35)
[2020-03-28] MEDS: ASCORBIC ACID 500 MG TABLET PO SCH ×2 (11:50→21:36)
[2020-03-28] MEDS: MAGNESIUM OXIDE 400 MG TABLET PO SCH ×2 (11:50→21:36)
[2020-03-28] MEDS: DOCUSATE SODIUM 100 MG CAPSULE PO SCH (11:50)
[2020-03-28] MEDS: CHOLECALCIFEROL (VITAMIN D3) 2,000 UNIT TABLET GT SCH (11:50)
[2020-03-28] MEDS: TAMSULOSIN HCL 0.4 MG CAP GT SCH ×2 (11:50→21:36)
[2020-03-28] MEDS: levETIRAcetam 500 MG TABLET GT SCH ×3 (11:50→21:36)
[2020-03-28] MEDS: APIXABAN 2.5 MG TABLET GT SCH ×2 (11:55→21:36)
[2020-03-28 15:54] VITALS: BP_SYST 115
[2020-03-28 20:00] VITALS: BP_SYST 107
[2020-03-29] VITALS: BP_SYST 107
[2020-03-29] MEDS: NEOMY SULF/BACITRA/POLYMYXIN B 3.5 GM OPHT. OINT. OP SCH ×6 (05:44→21:52)
[2020-03-29] MEDS: GABAPENTIN 100 MG CAPSULE GT SCH ×3 (05:45→21:50)
[2020-03-29] MEDS: PIPERACILLIN/TAZO 2.25G/DEX-IS 50 ML IV SCH ×4 (05:46→17:07)
[2020-03-29] MEDS: PEG 400/HYPROMELLOSE/GLYCERIN 15 ML DROPS EACH EYE SCH ×4 (05:46→17:07)
[2020-03-29 06:54] LABS: BASOPHILS % (AUTO) 0.2 % (0.0-2.0); HEMATOCRIT 30.1 % (36-54); LYMPHOCYTES # (AUTO) 0.3 K/uL (1.0-5.5); LYMPHOCYTES % (AUTO) 1.5 % (20.5-51.5); MEAN CORPUSCULAR HEMOGLOBIN 32 pg (27-31); MEAN CORPUSCULAR HGB CONC 33 % (32-36); MEAN CORPUSCULAR VOLUME 98 fL (79.0-98.0); MONOCYTES # (AUTO) 0.2 K/uL (0.0-1.0); MONOCYTES % (AUTO) 0.9 % (1.7-9.3); NEUTROPHILS # (AUTO) 18.4 K/uL (1.8-7.7); NEUTROPHILS % (AUTO) 97.4 % (40.0-70.0); PLATELET COUNT (AUTO) 319 K/uL (130-430); RED BLOOD CELL COUNT(AUTO) 3.08 MIL/uL (4.2-6.2); RED CELL DISTRIBUTION WIDTH 19.9 % (9.0-15.0); WHITE BLOOD COUNT (AUTO) 18.9 K/uL (4.8-10.8)
[2020-03-29 07:24] LABS: CALCIUM 8.8 mg/dL (8.4-11.0); CREATININE 0.41 mg/dL (0.55-1.30); PHOSPHORUS 3.4 mg/dL (2.7-4.5); POTASSIUM 3.9 mmol/L (3.5-5.1)
[2020-03-29 08:00] VITALS: BP_SYST 118
[2020-03-29] MEDS: ALBUTEROL MDI INHALATION 8 GM INH INH SCH ×4 (08:19→20:07)
[2020-03-29] MEDS: APIXABAN 2.5 MG TABLET GT SCH ×2 (09:00→21:49)
[2020-03-29] MEDS: levETIRAcetam 500 MG TABLET GT SCH ×3 (09:11→21:48)
[2020-03-29] MEDS: TAMSULOSIN HCL 0.4 MG CAP GT SCH ×2 (09:11→21:49)
[2020-03-29] MEDS: BACLOFEN 10 MG TABLET GT SCH ×3 (09:11→21:49)
[2020-03-29] MEDS: CHOLECALCIFEROL (VITAMIN D3) 2,000 UNIT TABLET GT SCH (09:12)
[2020-03-29] MEDS: DOCUSATE SODIUM 100 MG CAPSULE PO SCH (09:12)
[2020-03-29] MEDS: DEXAMETHASONE SOD PHOSPHATE 10 MG/ML VIAL IVP SCH ×2 (09:12→21:50)
[2020-03-29] MEDS: MAGNESIUM OXIDE 400 MG TABLET PO SCH ×2 (09:12→21:49)
[2020-03-29] MEDS: CHLORHEXIDINE GLUCONATE 15 ML/DOSE, 480 ML MM SCH ×2 (09:12→21:51)
[2020-03-29] MEDS: ASCORBIC ACID 500 MG TABLET PO SCH ×2 (09:12→21:49)
[2020-03-29] MEDS: BALSAM PERU/CASTOR OIL 60 GM OINT...G. TP SCH (09:12)
[2020-03-29 12:15] VITALS: BP_SYST 104
[2020-03-29 16:10] VITALS: BP_SYST 106
[2020-03-29 20:00] VITALS: BP_SYST 110
[2020-03-30] VITALS: BP_SYST 103
[2020-03-30] MEDS: PIPERACILLIN/TAZO 2.25G/DEX-IS 50 ML IV SCH ×4 (00:29→17:03)
[2020-03-30] MEDS: PEG 400/HYPROMELLOSE/GLYCERIN 15 ML DROPS EACH EYE SCH ×4 (00:30→17:03)
[2020-03-30] MEDS: GABAPENTIN 100 MG CAPSULE GT SCH ×3 (06:00→22:00)
[2020-03-30] MEDS: NEOMY SULF/BACITRA/POLYMYXIN B 3.5 GM OPHT. OINT. OP SCH ×5 (06:01→22:00)
[2020-03-30 06:34] LABS: BASOPHILS % (AUTO) 0.1 % (0.0-2.0); HEMATOCRIT 31.2 % (36-54); HEMOGLOBIN 10.3 g/dL (14.0-18.0); LYMPHOCYTES # (AUTO) 0.3 K/uL (1.0-5.5); LYMPHOCYTES % (AUTO) 1.4 % (20.5-51.5); MEAN CORPUSCULAR HEMOGLOBIN 32 pg (27-31); MEAN CORPUSCULAR HGB CONC 33 % (32-36); MEAN CORPUSCULAR VOLUME 99 fL (79.0-98.0); MONOCYTES # (AUTO) 0.5 K/uL (0.0-1.0); MONOCYTES % (AUTO) 2.5 % (1.7-9.3); NEUTROPHILS # (AUTO) 19.1 K/uL (1.8-7.7); PLATELET COUNT (AUTO) 302 K/uL (130-430); RED BLOOD CELL COUNT(AUTO) 3.17 MIL/uL (4.2-6.2); RED CELL DISTRIBUTION WIDTH 20.4 % (9.0-15.0); WHITE BLOOD COUNT (AUTO) 19.9 K/uL (4.8-10.8)
[2020-03-30 06:49] LABS: ALANINE AMINOTRANSFERASE 26 U/L (12-78); ALBUMIN 1.9 g/dL (3.4-4.8); ASPARTATE AMINOTRANSFERASE 15 U/L (10-37); CALCIUM 8.6 mg/dL (8.4-11.0); CHLORIDE 104 mmol/L (98-107); CREATININE 0.45 mg/dL (0.55-1.30); GLUCOSE 167 mg/dL (70-99); POTASSIUM 3.7 mmol/L (3.5-5.1); SODIUM SERUM 141 mmol/L (136-145); TOTAL BILIRUBIN 0.3 mg/dL (0.0-1.0); UREA NITROGEN, BLOOD 32 mg/dL (8-21)
[2020-03-30 07:07] LABS: GFR AFRICAN AMERICAN 243 mL/min (>90)
[2020-03-30 07:08] LABS: ANION GAP < 3 (5-15)
[2020-03-30 08:00] VITALS: BP_SYST 120
[2020-03-30] MEDS: ALBUTEROL MDI INHALATION 8 GM INH INH SCH ×4 (08:20→19:50)
[2020-03-30] MEDS: APIXABAN 2.5 MG TABLET GT SCH ×2 (09:00→22:30)
[2020-03-30 09:11] VITALS: BP_SYST 103
[2020-03-30] MEDS: DEXAMETHASONE SOD PHOSPHATE 10 MG/ML VIAL IVP SCH ×2 (10:07→22:30)
[2020-03-30] MEDS: CHLORHEXIDINE GLUCONATE 15 ML/DOSE, 480 ML MM SCH ×2 (10:07→21:00)
[2020-03-30] MEDS: MAGNESIUM OXIDE 400 MG TABLET PO SCH ×2 (10:07→21:00)
[2020-03-30] MEDS: BALSAM PERU/CASTOR OIL 60 GM OINT...G. TP SCH (10:07)
[2020-03-30] MEDS: BACLOFEN 10 MG TABLET GT SCH ×3 (10:07→20:59)
[2020-03-30] MEDS: CHOLECALCIFEROL (VITAMIN D3) 2,000 UNIT TABLET GT SCH (10:07)
[2020-03-30] MEDS: ASCORBIC ACID 500 MG TABLET PO SCH ×2 (10:07→21:00)
[2020-03-30] MEDS: TAMSULOSIN HCL 0.4 MG CAP GT SCH ×2 (10:07→20:59)
[2020-03-30] MEDS: levETIRAcetam 500 MG TABLET GT SCH ×3 (10:07→20:59)
[2020-03-30] MEDS: DOCUSATE SODIUM 100 MG CAPSULE PO SCH (10:07)
[2020-03-30 11:27] VITALS: BP_SYST 104
[2020-03-30 15:35] VITALS: BP_SYST 112
[2020-03-30 20:00] VITALS: BP_SYST 114
[2020-03-31] VITALS: BP_SYST 118
[2020-03-31] MEDS: PEG 400/HYPROMELLOSE/GLYCERIN 15 ML DROPS EACH EYE SCH ×5 (06:00→23:28)
[2020-03-31 06:45] LABS: BASOPHILS % (AUTO) 0.1 % (0.0-2.0); HEMATOCRIT 29.9 % (36-54); LYMPHOCYTES # (AUTO) 0.2 K/uL (1.0-5.5); LYMPHOCYTES % (AUTO) 1.1 % (20.5-51.5); MEAN CORPUSCULAR HEMOGLOBIN 33 pg (27-31); MEAN CORPUSCULAR HGB CONC 34 % (32-36); MEAN CORPUSCULAR VOLUME 98 fL (79.0-98.0); MONOCYTES # (AUTO) 0.2 K/uL (0.0-1.0); NEUTROPHILS # (AUTO) 20.4 K/uL (1.8-7.7); NEUTROPHILS % (AUTO) 97.8 % (40.0-70.0); PLATELET COUNT (AUTO) 286 K/uL (130-430); RED BLOOD CELL COUNT(AUTO) 3.05 MIL/uL (4.2-6.2); RED CELL DISTRIBUTION WIDTH 19.3 % (9.0-15.0); WHITE BLOOD COUNT (AUTO) 20.9 K/uL (4.8-10.8)
[2020-03-31] MEDS: NEOMY SULF/BACITRA/POLYMYXIN B 3.5 GM OPHT. OINT. OP SCH ×5 (07:02→22:05)
[2020-03-31] MEDS: GABAPENTIN 100 MG CAPSULE GT SCH ×3 (07:02→21:18)
[2020-03-31] MEDS: PIPERACILLIN/TAZO 2.25G/DEX-IS 50 ML IV SCH ×5 (07:02→23:28)
[2020-03-31 07:10] LABS: CALCIUM 8.8 mg/dL (8.4-11.0); CREATININE 0.41 mg/dL (0.55-1.30); POTASSIUM 3.8 mmol/L (3.5-5.1)
[2020-03-31] MEDS: ALBUTEROL MDI INHALATION 8 GM INH INH SCH ×4 (07:13→20:20)
[2020-03-31 08:00] VITALS: BP_SYST 113
[2020-03-31] MEDS: ASCORBIC ACID 500 MG TABLET PO SCH ×2 (09:50→21:17)
[2020-03-31] MEDS: TAMSULOSIN HCL 0.4 MG CAP GT SCH ×2 (09:50→21:17)
[2020-03-31] MEDS: DOCUSATE SODIUM 100 MG CAPSULE PO SCH (09:50)
[2020-03-31] MEDS: BACLOFEN 10 MG TABLET GT SCH ×3 (09:50→21:17)
[2020-03-31] MEDS: MAGNESIUM OXIDE 400 MG TABLET PO SCH ×2 (09:50→21:17)
[2020-03-31] MEDS: levETIRAcetam 500 MG TABLET GT SCH ×3 (09:50→21:17)
[2020-03-31] MEDS: CHOLECALCIFEROL (VITAMIN D3) 2,000 UNIT TABLET GT SCH (09:50)
[2020-03-31] MEDS: APIXABAN 2.5 MG TABLET GT SCH ×2 (09:51→22:07)
[2020-03-31] MEDS: CHLORHEXIDINE GLUCONATE 15 ML/DOSE, 480 ML MM SCH ×2 (09:52→21:17)
[2020-03-31] MEDS: DEXAMETHASONE SOD PHOSPHATE 10 MG/ML VIAL IVP SCH ×2 (09:53→22:08)
[2020-03-31] MEDS: BALSAM PERU/CASTOR OIL 60 GM OINT...G. TP SCH (09:54)
[2020-03-31 11:24] VITALS: BP_SYST 128
[2020-03-31 15:35] VITALS: BP_SYST 116
[2020-03-31 20:00] VITALS: BP_SYST 119
[2020-04-01] MEDS: PEG 400/HYPROMELLOSE/GLYCERIN 15 ML DROPS EACH EYE SCH ×4 (05:33→23:55)
[2020-04-01] MEDS: GABAPENTIN 100 MG CAPSULE GT SCH ×3 (05:34→21:23)
[2020-04-01] MEDS: NEOMY SULF/BACITRA/POLYMYXIN B 3.5 GM OPHT. OINT. OP SCH ×5 (05:34→21:24)
[2020-04-01] MEDS: PIPERACILLIN/TAZO 2.25G/DEX-IS 50 ML IV SCH ×4 (05:34→23:54)
[2020-04-01] MEDS: ALBUTEROL MDI INHALATION 8 GM INH INH SCH ×4 (08:20→19:45)
[2020-04-01] MEDS: levETIRAcetam 500 MG TABLET GT SCH ×3 (09:24→21:23)
[2020-04-01] MEDS: BACLOFEN 10 MG TABLET GT SCH ×3 (09:24→21:23)
[2020-04-01] MEDS: DOCUSATE SODIUM 100 MG CAPSULE PO SCH (09:24)
[2020-04-01] MEDS: TAMSULOSIN HCL 0.4 MG CAP GT SCH ×2 (09:24→21:22)
[2020-04-01] MEDS: MAGNESIUM OXIDE 400 MG TABLET PO SCH ×2 (09:25→21:23)
[2020-04-01] MEDS: ASCORBIC ACID 500 MG TABLET PO SCH ×2 (09:25→21:23)
[2020-04-01] MEDS: CHOLECALCIFEROL (VITAMIN D3) 2,000 UNIT TABLET GT SCH (09:32)
[2020-04-01] MEDS: DEXAMETHASONE SOD PHOSPHATE 10 MG/ML VIAL IVP SCH (09:33)
[2020-04-01] MEDS: APIXABAN 2.5 MG TABLET GT SCH ×2 (09:36→21:25)
[2020-04-01] MEDS: BALSAM PERU/CASTOR OIL 60 GM OINT...G. TP SCH (09:50)
[2020-04-01] MEDS: CHLORHEXIDINE GLUCONATE 15 ML/DOSE, 480 ML MM SCH ×2 (09:50→21:23)
[2020-04-01 11:46] VITALS: BP_SYST 112
[2020-04-01 16:00] VITALS: BP_SYST 107
[2020-04-01 20:10] VITALS: BP_SYST 103
[2020-04-01] MEDS: DECADRON 4 MG TABLET PO SCH (21:23)
[2020-04-02] VITALS: BP_SYST 102
[2020-04-02 05:53] LABS: BASOPHILS % (AUTO) 0.1 % (0.0-2.0); HEMATOCRIT 30.2 % (36-54); LYMPHOCYTES # (AUTO) 0.5 K/uL (1.0-5.5); LYMPHOCYTES % (AUTO) 2.5 % (20.5-51.5); MEAN CORPUSCULAR HEMOGLOBIN 33 pg (27-31); MEAN CORPUSCULAR HGB CONC 33 % (32-36); MEAN CORPUSCULAR VOLUME 100 fL (79.0-98.0); MONOCYTES # (AUTO) 0.5 K/uL (0.0-1.0); MONOCYTES % (AUTO) 2.7 % (1.7-9.3); NEUTROPHILS # (AUTO) 18.8 K/uL (1.8-7.7); NEUTROPHILS % (AUTO) 94.7 % (40.0-70.0); PLATELET COUNT (AUTO) 263 K/uL (130-430); RED BLOOD CELL COUNT(AUTO) 3.03 MIL/uL (4.2-6.2); RED CELL DISTRIBUTION WIDTH 20.4 % (9.0-15.0); WHITE BLOOD COUNT (AUTO) 19.9 K/uL (4.8-10.8)
[2020-04-02] MEDS: NEOMY SULF/BACITRA/POLYMYXIN B 3.5 GM OPHT. OINT. OP SCH (05:59)
[2020-04-02] MEDS: PEG 400/HYPROMELLOSE/GLYCERIN 15 ML DROPS EACH EYE SCH ×2 (06:00→12:42)
[2020-04-02] MEDS: GABAPENTIN 100 MG CAPSULE GT SCH ×2 (06:00→15:31)
[2020-04-02] MEDS: PIPERACILLIN/TAZO 2.25G/DEX-IS 50 ML IV SCH ×2 (06:00→12:41)
[2020-04-02 06:14] LABS: ALBUMIN 1.9 g/dL (3.4-4.8); CALCIUM 9.1 mg/dL (8.4-11.0); CREATININE 0.42 mg/dL (0.55-1.30); POTASSIUM 3.8 mmol/L (3.5-5.1); TOTAL BILIRUBIN 0.5 mg/dL (0.0-1.0)
[2020-04-02 08:00] VITALS: BP_SYST 118
[2020-04-02] MEDS: ALBUTEROL MDI INHALATION 8 GM INH INH SCH ×2 (08:00→13:44)
[2020-04-02] MEDS: CHLORHEXIDINE GLUCONATE 15 ML/DOSE, 480 ML MM SCH (09:51)
[2020-04-02] MEDS: DOCUSATE SODIUM 100 MG CAPSULE PO SCH (09:53)
[2020-04-02] MEDS: DECADRON 4 MG TABLET PO SCH (09:53)
[2020-04-02] MEDS: MAGNESIUM OXIDE 400 MG TABLET PO SCH (09:53)
[2020-04-02] MEDS: TAMSULOSIN HCL 0.4 MG CAP GT SCH (09:53)
[2020-04-02] MEDS: ASCORBIC ACID 500 MG TABLET PO SCH (09:53)
[2020-04-02] MEDS: CHOLECALCIFEROL (VITAMIN D3) 2,000 UNIT TABLET GT SCH (09:53)
[2020-04-02] MEDS: levETIRAcetam 500 MG TABLET GT SCH ×2 (09:53→15:31)
[2020-04-02] MEDS: BACLOFEN 10 MG TABLET GT SCH ×2 (09:53→15:31)
[2020-04-02] MEDS: APIXABAN 2.5 MG TABLET GT SCH (09:54)
[2020-04-02] MEDS: BALSAM PERU/CASTOR OIL 60 GM OINT...G. TP SCH (09:55)
[2020-04-02 11:31] VITALS: BP_SYST 113
[2020-04-02 12:26] VITALS: BP_SYST 113
[2020-04-02 13:53] VITALS: BP_SYST 117
[2020-04-02 16:04] VITALS: BP_SYST 117
== END 2020-04-02 16:55 | DRG 720 ==
LOC: SED 20:28 → STU 23:11 → SMU 03-30 09:51
PROVIDERS: ADMIT Internal Medicine; ATTEND Internal Medicine
PROC: 5A09457 Assistance with Respiratory Ventilation, 24-96 Consecutive Hours, Continuous Positive Airway Pressure (ICD-10-PCS; 2020-03-13)
PROC: 5A09357 Assistance with Respiratory Ventilation, Less than 24 Consecutive Hours, Continuous Positive Airway Pressure (ICD-10-PCS; 2020-03-15)
PROC: 5A09357 Assistance with Respiratory Ventilation, Less than 24 Consecutive Hours, Continuous Positive Airway Pressure (ICD-10-PCS; 2020-03-21)
PROC: 5A09457 Assistance with Respiratory Ventilation, 24-96 Consecutive Hours, Continuous Positive Airway Pressure (ICD-10-PCS; 2020-03-22)
PROC: 5A09357 Assistance with Respiratory Ventilation, Less than 24 Consecutive Hours, Continuous Positive Airway Pressure (ICD-10-PCS; 2020-03-24)
PROC: 5A09357 Assistance with Respiratory Ventilation, Less than 24 Consecutive Hours, Continuous Positive Airway Pressure (ICD-10-PCS; 2020-03-26)
PROC: 0D20XUZ Change Feeding Device in Upper Intestinal Tract, External Approach (ICD-10-PCS; principal; 2020-03-28)
PROC: 5A09357 Assistance with Respiratory Ventilation, Less than 24 Consecutive Hours, Continuous Positive Airway Pressure (ICD-10-PCS; 2020-03-28)
DX: A41.9 Sepsis, unspecified organism (principal); U07.1 COVID-19; J12.82 Pneumonia due to coronavirus disease 2019; G82.50 Quadriplegia, unspecified; K21.9 Gastro-esophageal reflux disease without esophagitis; G40.909 Epilepsy, unspecified, not intractable, without status epilepticus; N40.0 Benign prostatic hyperplasia without lower urinary tract symptoms; J96.21 Acute and chronic respiratory failure with hypoxia; G83.5 Locked-in state; G93.1 Anoxic brain damage, not elsewhere classified; E43 Unspecified severe protein-calorie malnutrition; K94.23 Gastrostomy malfunction; L89.159 Pressure ulcer of sacral region, unspecified stage; N39.0 Urinary tract infection, site not specified; R13.10 Dysphagia, unspecified; Z66 Do not resuscitate; Z16.24 Resistance to multiple antibiotics; N31.9 Neuromuscular dysfunction of bladder, unspecified; K31.6 Fistula of stomach and duodenum; Z51.5 Encounter for palliative care; E87.0 Hyperosmolality and hypernatremia; Z86.73 Personal history of transient ischemic attack (TIA), and cerebral infarction without residual deficits; Z86.718 Personal history of other venous thrombosis and embolism; Z79.01 Long term (current) use of anticoagulants; Z79.899 Other long term (current) drug therapy; Z79.82 Long term (current) use of aspirin; Z68.21 Body mass index [BMI] 21.0-21.9, adult; Z22.322 Carrier or suspected carrier of Methicillin resistant Staphylococcus aureus; Z74.01 Bed confinement status; Z87.440 Personal history of urinary (tract) infections; Z87.442 Personal history of urinary calculi
CPT/HCPCS: 36415; 36600; 71045; 74018; 80048; 80053; 80076; 80202-TC; 81000-TC; 82803-TC; 82962; 83605; 83735-TC; 84100-TC; 85007; 85025; 85027; 87040-TC; 87070-TC; 87081; 87086; 87186-TC; 87205-TC; 93005; 94640; 94660; 94760; 96365; 97110-GP; 99291; J0122; J0456; J0692; J0696; J1100; J1940; J2270; J2543; J3370; J7030; J7040; J7042; J7050; J7060; J8540; Q9963; U0003

== ENCOUNTER 2023-01-18 07:49 | Inpatient (IN) | payer MEDICAID ==
[~2023-01-18] VITALS: Ht 180.3 cm; Wt 92.7 kg
[2023-01-18] VITALS (21 sets, daily range): BP systolic 107–152; PULSE 76–126; RESP 14–18; TEMP 96.7–99.9; O2SAT 91–100
[~2023-01-18 07:49] MED LIST changes: +ALBU2.5V7 INH; +APIX2.5T GT; +ASA81 GT; +ASCO500T20 GT; -ASPI-524 GT; +ATROVENT INH; +BETH50TA8 GT; +CARB15DR OP; +CIPR5DRO OP; +COLL100 GT; -DOCU-144 GT; +HYT1 GT; +MULT-1089 GT; +NEU100 GT; +PHEN100C4 GT; -PIPE4.5F2 IV; +RIVA20TA GT; -TERA5CAP GT; +TORBREX RIGHT EYE; +TRAM100T25 GT; +TRAM100T34 GT; +VITA80008 GT; +VITD2000 GT; +ZINC500P17 GT; +ZINC50TA69 GT
[2023-01-18] MEDS ORDERED: levETIRAcetam 1,000 MG IV BAG 100 ML IV ONE (08:00)
[2023-01-18] MEDS ORDERED: NACL 0.9% 2,000 ML IV ONE (08:00)
[2023-01-18 08:20] LABS: BASOPHILS # (AUTO) 0.1 K/uL (0.0-0.2); BASOPHILS % (AUTO) 0.5 % (0.0-2.0); EOSINOPHILS # (AUTO) 0.1 K/uL (0.0-0.4); EOSINOPHILS % (AUTO) 0.4 % (0.0-4.0); HEMATOCRIT 47.4 % (36-54); HEMOGLOBIN 15.5 g/dL (14.0-18.0); LYMPHOCYTES # (AUTO) 1.1 K/uL (1.0-5.5); LYMPHOCYTES % (AUTO) 6.2 % (20.5-51.5); MEAN CORPUSCULAR HEMOGLOBIN 31 pg (27-31); MEAN CORPUSCULAR HGB CONC 33 % (32-36); MEAN CORPUSCULAR VOLUME 94 fL (79.0-98.0); MONOCYTES % (AUTO) 5.6 % (1.7-9.3); NEUTROPHILS # (AUTO) 16.2 K/uL (1.8-7.7); NEUTROPHILS % (AUTO) 87.3 % (40.0-70.0); PLATELET COUNT (AUTO) 354 K/uL (130-430); RED BLOOD CELL COUNT(AUTO) 5.03 MIL/uL (4.2-6.2); RED CELL DISTRIBUTION WIDTH 13.9 % (9.0-15.0); WHITE BLOOD COUNT (AUTO) 18.6 K/uL (4.8-10.8)
[2023-01-18] MEDS ORDERED: LEVE100S GT (08:22)
[2023-01-18] MEDS ORDERED: ALBU90AE NEB (08:22)
[2023-01-18] MEDS ORDERED: THEO80SO4 GT (08:22)
[2023-01-18] MEDS ORDERED: ASCO500S10 GT (08:22)
[2023-01-18] MEDS ORDERED: ALBU90AE2 NEB (08:22)
[2023-01-18] MEDS ORDERED: DOCU-144 GT (08:22)
[2023-01-18] MEDS ORDERED: [UNRECOGNIZED DRUG - CODE] GT (08:22)
[2023-01-18] MEDS ORDERED: CRAN450T9 GT (08:22)
[2023-01-18] MEDS ORDERED: [UNRECOGNIZED DRUG - CODE] EACH EYE (08:22)
[2023-01-18 08:33] LABS: INR 1.1 (0.80-1.20); PROTHROMBIN TIME 11.5 SECS (9.5-12.5)
[2023-01-18] MEDS ORDERED: CEFEPIME 2 GM in D5W 100 ML IV ONE (08:45)
[2023-01-18] MEDS ORDERED: NACL 0.9% 1,000 ML IV ONE (08:45)
[2023-01-18] MEDS ORDERED: VANCOMYCIN HCL 1,000 MG in NS 250 ML IV ONE (08:45)
[2023-01-18 08:54] LABS: BILIRUBIN,URINE NEGATIVE (NEGATIVE); BLOOD, URINE 3+ (NEGATIVE); CLARITY/URINE CLOUDY (CLEAR); COLOR,URINE YELLOW (YELLOW); GLUCOSE,URINE NEGATIVE (NEGATIVE); KETONES,URINE NEGATIVE (NEGATIVE); LEUKOCYTE ESTERASE ,URINE 2+ (NEGATIVE); NITRITE, URINE POSITIVE (NEGATIVE); PROTEIN URINE 3+ (NEGATIVE); UROBILINOGEN,URINE 0.2 (0.2-1.0)
[2023-01-18 08:59] LABS: ANION GAP 10 (5-15); CALCIUM 9.3 mg/dL (8.4-11.0); CARBON DIOXIDE 31 mmol/L (23-29); CHLORIDE 98 mmol/L (98-107); CREATININE 0.78 mg/dL (0.55-1.30); GFR AFRICAN AMERICAN 128 mL/min (>90); GLUCOSE 129 mg/dL (74-106); SODIUM SERUM 139 mmol/L (136-145); UREA NITROGEN, BLOOD 16 mg/dL (8-21)
[2023-01-18 09:02] LABS: GFR NON AFRICAN-AMERICAN 106 mL/min (>90)
[2023-01-18 09:03] LABS: BACTERIA,URINE MODERATE /HPF (None Seen); RBC,URINE 0-3 /HPF (0-3)
[2023-01-18 09:04] LABS: CALCIUM OXALATE CRYSTALS,UR None Seen /HPF (None Seen); CALCIUM PHOSPHATE CRYSTALS,UR None Seen /HPF (None Seen); COARSE GRANULAR CASTS,URINE None Seen /LPF (None Seen); FINE GRANULAR CASTS,URINE None Seen /LPF (None Seen); HYALINE CASTS, URINE None Seen /LPF (None Seen); MUCUS,URINE None Seen /LPF (None Seen); OTHER CASTS, URINE None Seen /LPF (None Seen); OTHER CRYSTALS,URINE None Seen /HPF (None Seen); TRICHOMONAS,URINE None Seen /HPF (None Seen); TRIPLE PHOSPHATE CRYSTAL,UR None Seen /HPF (None Seen); URIC ACID CRYSTALS,URINE None Seen /HPF (None Seen); URINE AMORPHOUS PHOSPHATES None Seen /HPF (None Seen); URINE AMORPHOUS URATE None Seen /HPF (None Seen); WAXY CASTS,URINE None Seen /LPF (None Seen); YEAST,URINE Moderate /HPF (None Seen)
[2023-01-18 09:08] LABS: ABG O2 SAT% ESTIMATE 96.5 % (94.0-100.0); BLOOD GAS BASE EXCESS 2.5 mmol/L (-3.0-3.0); BLOOD GAS HCO3 31.4 mmol/L (21.0-27.0); BLOOD GAS PO2 98.8 mmHg (75.0-100.0)
[2023-01-18 09:11] LABS: ALANINE AMINOTRANSFERASE 46 U/L (12-78); ALBUMIN 3.2 g/dL (3.4-4.8); ASPARTATE AMINOTRANSFERASE 34 U/L (10-37); BILIRUBIN,DIRECT 0.2 mg/dL (0.0-0.3); TOTAL BILIRUBIN 0.3 mg/dL (0.0-1.0); TOTAL PROTEIN, SERUM 8.7 g/dL (6.4-8.3)
[2023-01-18 09:13] LABS: ALLEN'S TEST POSITIVE (P)
[2023-01-18 09:17] LABS: BLOOD GAS PCO2 68.3 mmHg (32.0-45.0); BLOOD GAS PH 7.281 (7.350-7.450)
[2023-01-18] MEDS ORDERED: LORazepam 2 MG/ML VIAL IVP PRN (09:30)
[2023-01-18] MEDS ORDERED: AZITHROMYCIN 500 MG in NS 250 ML IV SCH (09:30)
[2023-01-18] MEDS ORDERED: CEFEPIME 2 GM/VIAL (MAXIPIME) ONE (09:40)
[2023-01-18] MEDS ORDERED: VANCOMYCIN HCL 1000 MG/VIAL IV ONE (09:40)
[2023-01-18] MEDS ORDERED: NON-FORMULARY MEDICATION (Albuterol Sulfate (Proair Respiclick) 2 PUFF) NEB SCH (10:15)
[2023-01-18] MEDS ORDERED: ALBUTEROL SULFATE 0.083% 2.5 MG/3 ML VIAL.NEB INH PRN ×2 (10:45)
[2023-01-18] MEDS ORDERED: AZITHROMYCIN 500 MG/VIAL (ZITHROMAX) IV ONE (10:56)
[2023-01-18] MEDS: IPRATROPIUM/ALBUTEROL SULFATE 3 ML AMPUL.NEB (DUONEB) IH SCH ×2 (11:00→15:00)
[2023-01-18] MEDS: AZITHROMYCIN 500 MG in NS 250 ML IV SCH (11:13)
[2023-01-18] MEDS: traMADol HCL HCL 50 MG TABLET (ULTRAM) GT SCH ×3 (11:22→23:59)
[2023-01-18] MEDS ORDERED: PIPERACILLIN/TAZOBACTAM 2.25 GM VIAL IV ONE (11:39)
[2023-01-18] MEDS: PIPERACILLIN/TAZO 3.375/DEX-IS 50 ML IV SCH ×3 (11:55→23:59)
[2023-01-18] MEDS: ALBUTEROL SULFATE 0.083% 2.5 MG/3 ML VIAL.NEB INH SCH ×2 (12:24→19:51)
[2023-01-18] MEDS: LR 1,000 ML IV SCH (12:45)
[2023-01-18 13:15] LABS: INR 1.1 (0.80-1.20); PROTHROMBIN TIME 11.7 SECS (9.5-12.5)
[2023-01-18] MEDS: BACLOFEN 10 MG TABLET GT SCH ×2 (15:31→21:08)
[2023-01-18] MEDS: GABAPENTIN 100 MG CAPSULE GT SCH ×2 (15:31→21:08)
[2023-01-18] MEDS: THEOPHYLLINE ANHYDROUS 80 MG/15 ML UDC GT SCH ×2 (15:33→21:06)
[2023-01-18] MEDS ORDERED: MIDAZOLAM IN NACL,ISO-OSMOT/PF 100 ML IV PRN (17:30)
[2023-01-18] MEDS: LORazepam 2 MG/ML VIAL IVP PRN (17:33)
[2023-01-18] MEDS: CHLORHEXIDINE GLUC 0.12% 15 ML MOUTHWASH UDC MM SCH (21:07)
[2023-01-18] MEDS: LevETIRAcetam 500 MG/5 ML UDC ORAL LIQUID GT SCH (21:07)
[2023-01-18] MEDS: POTASSIUM CHLORIDE 20 MEQ/PKT PACKET GT SCH (21:08)
[2023-01-18] MEDS: ASCORBIC ACID 500 MG TABLET GT SCH (21:08)
[2023-01-18] MEDS: MINERAL OIL/PETROLATUM,WHITE 3.5 GM EYE OINT. OP SCH (21:08)
[2023-01-18] MEDS: TAMSULOSIN HCL 0.4 MG CAP GT SCH (21:08)
[2023-01-18] MEDS: APIXABAN 2.5 MG TABLET GT SCH (21:09)
[2023-01-19] VITALS (34 sets, daily range): BP systolic 118–167; PULSE 77–110; RESP 18–21; TEMP 98.2–100.6; O2SAT 94–100
[2023-01-19] MEDS: ACETAMINOPHEN 650 MG/20.3 ML UDC GT PRN (00:03)
[2023-01-19] MEDS: ALBUTEROL SULFATE 0.083% 2.5 MG/3 ML VIAL.NEB INH SCH ×4 (01:00→19:51)
[2023-01-19] MEDS: LR 1,000 ML IV SCH ×2 (01:42→15:51)
[2023-01-19 04:56] LABS: BASOPHILS % (AUTO) 0.3 % (0.0-2.0); HEMATOCRIT 39.1 % (36-54); HEMOGLOBIN 12.8 g/dL (14.0-18.0); LYMPHOCYTES # (AUTO) 0.5 K/uL (1.0-5.5); LYMPHOCYTES % (AUTO) 3.2 % (20.5-51.5); MEAN CORPUSCULAR HEMOGLOBIN 31 pg (27-31); MEAN CORPUSCULAR HGB CONC 33 % (32-36); MEAN CORPUSCULAR VOLUME 93 fL (79.0-98.0); MONOCYTES # (AUTO) 0.9 K/uL (0.0-1.0); MONOCYTES % (AUTO) 5.9 % (1.7-9.3); NEUTROPHILS # (AUTO) 14.2 K/uL (1.8-7.7); NEUTROPHILS % (AUTO) 90.6 % (40.0-70.0); PLATELET COUNT (AUTO) 346 K/uL (130-430); RED BLOOD CELL COUNT(AUTO) 4.19 MIL/uL (4.2-6.2); RED CELL DISTRIBUTION WIDTH 13.7 % (9.0-15.0); WHITE BLOOD COUNT (AUTO) 15.7 K/uL (4.8-10.8)
[2023-01-19] MEDS: traMADol HCL HCL 50 MG TABLET (ULTRAM) GT SCH ×3 (06:10→18:19)
[2023-01-19] MEDS: GABAPENTIN 100 MG CAPSULE GT SCH ×3 (06:10→21:43)
[2023-01-19] MEDS: PIPERACILLIN/TAZO 3.375/DEX-IS 50 ML IV SCH ×3 (06:11→18:20)
[2023-01-19] MEDS: THEOPHYLLINE ANHYDROUS 80 MG/15 ML UDC GT SCH ×3 (06:11→21:43)
[2023-01-19 06:37] LABS: CALCIUM 8.2 mg/dL (8.4-11.0); POTASSIUM 4.6 mmol/L (3.5-5.1)
[2023-01-19 06:38] LABS: CREATININE 0.55 mg/dL (0.55-1.30)
[2023-01-19 06:39] LABS: ALBUMIN 2.7 g/dL (3.4-4.8); TOTAL BILIRUBIN 0.5 mg/dL (0.0-1.0)
[2023-01-19] MEDS: IPRATROPIUM/ALBUTEROL SULFATE 3 ML AMPUL.NEB (DUONEB) IH SCH ×3 (07:00→15:00)
[2023-01-19] MEDS: TAMSULOSIN HCL 0.4 MG CAP GT SCH ×2 (08:36→21:39)
[2023-01-19] MEDS: DOCUSATE SODIUM 100 MG/10 ML UDC GT SCH (08:36)
[2023-01-19] MEDS: ASCORBIC ACID 500 MG TABLET GT SCH ×2 (08:36→21:39)
[2023-01-19] MEDS: POTASSIUM CHLORIDE 20 MEQ/PKT PACKET GT SCH ×2 (08:36→21:40)
[2023-01-19] MEDS: CHOLECALCIFEROL (VITAMIN D3) 2,000 UNIT TABLET GT SCH (08:36)
[2023-01-19] MEDS: MULTIVITAMINS TAB 1 TABLET GT SCH (08:36)
[2023-01-19] MEDS: BACLOFEN 10 MG TABLET GT SCH ×3 (08:36→21:39)
[2023-01-19] MEDS: APIXABAN 2.5 MG TABLET GT SCH ×2 (08:37→21:39)
[2023-01-19] MEDS: LevETIRAcetam 500 MG/5 ML UDC ORAL LIQUID GT SCH ×2 (08:37→21:40)
[2023-01-19] MEDS: CHLORHEXIDINE GLUC 0.12% 15 ML MOUTHWASH UDC MM SCH ×2 (08:38→21:40)
[2023-01-19] MEDS: MINERAL OIL/PETROLATUM,WHITE 3.5 GM EYE OINT. OP SCH ×2 (08:39→21:40)
[2023-01-19] MEDS ORDERED: NON-FORMULARY MEDICATION (Cranberry Fruit (Cranberry) 1 TAB) GT SCH (09:00)
[2023-01-19] MEDS ORDERED: NON-FORMULARY MEDICATION (Amino Acids/Protein Hydrolys (Pro-Stat Max Liquid Packet) 30 ML) GT SCH (09:00)
[2023-01-19 10:34] LABS: ABG O2 SAT% ESTIMATE 96.4 % (94.0-100.0); ALLEN'S TEST POSITIVE (P); BLOOD GAS BASE EXCESS 5.2 mmol/L (-3.0-3.0); BLOOD GAS HCO3 31.6 mmol/L (21.0-27.0); BLOOD GAS PCO2 53.1 mmHg (32.0-45.0); BLOOD GAS PH 7.393 (7.350-7.450); BLOOD GAS PO2 87.3 mmHg (75.0-100.0)
[2023-01-19] MEDS: AZITHROMYCIN 500 MG in NS 250 ML IV SCH (11:59)
[2023-01-20] VITALS (33 sets, daily range): BP systolic 133–167; PULSE 72–111; RESP 18–20; TEMP 98–103.1; O2SAT 90–96
[2023-01-20] MEDS ORDERED: hydrALAZINE HCL 20 MG/ML VIAL IVP PRN
[2023-01-20] MEDS ORDERED: hydrALAZINE HCL 20 MG/ML VIAL ONE (00:02)
[2023-01-20] MEDS ORDERED: amLODIPine BESYLATE 10 MG TABLET ONE (00:03)
[2023-01-20] MEDS: amLODIPine BESYLATE 10 MG TABLET PO SCH ×2 (00:30→09:27)
[2023-01-20] MEDS: PIPERACILLIN/TAZO 3.375/DEX-IS 50 ML IV SCH ×5 (00:32→23:40)
[2023-01-20] MEDS: traMADol HCL HCL 50 MG TABLET (ULTRAM) GT SCH ×5 (00:37→23:40)
[2023-01-20] MEDS: ALBUTEROL SULFATE 0.083% 2.5 MG/3 ML VIAL.NEB INH SCH ×4 (00:54→19:00)
[2023-01-20] MEDS: LR 1,000 ML IV SCH ×2 (02:15→05:59)
[2023-01-20 05:42] LABS: BASOPHILS % (AUTO) 0.2 % (0.0-2.0); HEMATOCRIT 38.6 % (36-54); HEMOGLOBIN 12.5 g/dL (14.0-18.0); LYMPHOCYTES # (AUTO) 0.7 K/uL (1.0-5.5); LYMPHOCYTES % (AUTO) 3.6 % (20.5-51.5); MEAN CORPUSCULAR HEMOGLOBIN 30 pg (27-31); MEAN CORPUSCULAR HGB CONC 32 % (32-36); MEAN CORPUSCULAR VOLUME 93 fL (79.0-98.0); MONOCYTES # (AUTO) 2.1 K/uL (0.0-1.0); MONOCYTES % (AUTO) 10.3 % (1.7-9.3); NEUTROPHILS # (AUTO) 17.6 K/uL (1.8-7.7); NEUTROPHILS % (AUTO) 85.9 % (40.0-70.0); PLATELET COUNT (AUTO) 325 K/uL (130-430); RED BLOOD CELL COUNT(AUTO) 4.14 MIL/uL (4.2-6.2); RED CELL DISTRIBUTION WIDTH 13.4 % (9.0-15.0); WHITE BLOOD COUNT (AUTO) 20.5 K/uL (4.8-10.8)
[2023-01-20] MEDS: GABAPENTIN 100 MG CAPSULE GT SCH ×3 (05:57→22:26)
[2023-01-20] MEDS: THEOPHYLLINE ANHYDROUS 80 MG/15 ML UDC GT SCH ×3 (05:59→22:26)
[2023-01-20 06:04] LABS: ALBUMIN 2.7 g/dL (3.4-4.8); CALCIUM 8.4 mg/dL (8.4-11.0); CREATININE 0.44 mg/dL (0.55-1.30); POTASSIUM 3.4 mmol/L (3.5-5.1); TOTAL BILIRUBIN 0.3 mg/dL (0.0-1.0); TOTAL PROTEIN, SERUM 7.5 g/dL (6.4-8.3)
[2023-01-20] MEDS: IPRATROPIUM/ALBUTEROL SULFATE 3 ML AMPUL.NEB (DUONEB) IH SCH ×5 (07:00→23:00)
[2023-01-20] MEDS: MULTIVITAMINS TAB 1 TABLET GT SCH (09:25)
[2023-01-20] MEDS: LevETIRAcetam 500 MG/5 ML UDC ORAL LIQUID GT SCH ×2 (09:25→20:45)
[2023-01-20] MEDS: ASCORBIC ACID 500 MG TABLET GT SCH ×2 (09:25→20:47)
[2023-01-20] MEDS: TAMSULOSIN HCL 0.4 MG CAP GT SCH ×2 (09:25→20:45)
[2023-01-20] MEDS: DOCUSATE SODIUM 100 MG/10 ML UDC GT SCH (09:25)
[2023-01-20] MEDS: APIXABAN 2.5 MG TABLET GT SCH ×2 (09:27→20:45)
[2023-01-20] MEDS: BACLOFEN 10 MG TABLET GT SCH ×3 (09:27→20:45)
[2023-01-20] MEDS: CHLORHEXIDINE GLUC 0.12% 15 ML MOUTHWASH UDC MM SCH ×2 (09:28→20:45)
[2023-01-20] MEDS: MINERAL OIL/PETROLATUM,WHITE 3.5 GM EYE OINT. OP SCH ×2 (09:28→20:48)
[2023-01-20] MEDS: POTASSIUM CHLORIDE 20 MEQ/PKT PACKET GT SCH ×2 (09:28→20:45)
[2023-01-20] MEDS: CHOLECALCIFEROL (VITAMIN D3) 2,000 UNIT TABLET GT SCH (09:33)
[2023-01-20] MEDS: AZITHROMYCIN 500 MG in NS 250 ML IV SCH (11:58)
[2023-01-20] MEDS: LORazepam 2 MG/ML VIAL IVP PRN (16:01)
[2023-01-20] MEDS: BALSAM PERU/CASTOR OIL 56.7 GM OINT...G. TP SCH (17:30)
[2023-01-20] MEDS ORDERED: BALSAM PERU/CASTOR OIL 56.7 GM OINT...G. TP ONE (18:00)
[2023-01-21] VITALS (34 sets, daily range): BP systolic 117–143; PULSE 63–108; RESP 18–24; TEMP 97.8–99.8; O2SAT 92–100
[2023-01-21] MEDS: ALBUTEROL SULFATE 0.083% 2.5 MG/3 ML VIAL.NEB INH SCH ×4 (01:00→20:07)
[2023-01-21] MEDS: IPRATROPIUM/ALBUTEROL SULFATE 3 ML AMPUL.NEB (DUONEB) IH SCH (03:00)
[2023-01-21] MEDS: LR 1,000 ML IV SCH ×2 (03:15→10:12)
[2023-01-21] MEDS: THEOPHYLLINE ANHYDROUS 80 MG/15 ML UDC GT SCH ×3 (05:18→22:37)
[2023-01-21] MEDS: traMADol HCL HCL 50 MG TABLET (ULTRAM) GT SCH (05:18)
[2023-01-21] MEDS: PIPERACILLIN/TAZO 3.375/DEX-IS 50 ML IV SCH ×4 (05:18→23:37)
[2023-01-21] MEDS: GABAPENTIN 100 MG CAPSULE GT SCH ×3 (05:18→22:37)
[2023-01-21 05:34] LABS: BASOPHILS # (AUTO) 0.2 K/uL (0.0-0.2); BASOPHILS % (AUTO) 0.8 % (0.0-2.0); EOSINOPHILS # (AUTO) 0.1 K/uL (0.0-0.4); EOSINOPHILS % (AUTO) 0.4 % (0.0-4.0); HEMATOCRIT 37.5 % (36-54); HEMOGLOBIN 12.7 g/dL (14.0-18.0); LYMPHOCYTES # (AUTO) 1.4 K/uL (1.0-5.5); LYMPHOCYTES % (AUTO) 6.9 % (20.5-51.5); MEAN CORPUSCULAR HEMOGLOBIN 31 pg (27-31); MEAN CORPUSCULAR HGB CONC 34 % (32-36); MEAN CORPUSCULAR VOLUME 92 fL (79.0-98.0); MONOCYTES # (AUTO) 2.8 K/uL (0.0-1.0); MONOCYTES % (AUTO) 13.8 % (1.7-9.3); NEUTROPHILS # (AUTO) 15.9 K/uL (1.8-7.7); NEUTROPHILS % (AUTO) 78.1 % (40.0-70.0); PLATELET COUNT (AUTO) 319 K/uL (130-430); RED BLOOD CELL COUNT(AUTO) 4.06 MIL/uL (4.2-6.2); RED CELL DISTRIBUTION WIDTH 13.4 % (9.0-15.0); WHITE BLOOD COUNT (AUTO) 20.4 K/uL (4.8-10.8)
[2023-01-21 05:59] LABS: ALBUMIN 2.5 g/dL (3.4-4.8); CALCIUM 8.9 mg/dL (8.4-11.0); CREATININE 0.55 mg/dL (0.55-1.30); TOTAL BILIRUBIN 0.8 mg/dL (0.0-1.0); TOTAL PROTEIN, SERUM 7.2 g/dL (6.4-8.3)
[2023-01-21] MEDS: POTASSIUM CHLORIDE 20 MEQ/PKT PACKET GT SCH ×2 (09:56→20:22)
[2023-01-21] MEDS: DOCUSATE SODIUM 100 MG/10 ML UDC GT SCH (09:57)
[2023-01-21] MEDS: TAMSULOSIN HCL 0.4 MG CAP GT SCH ×2 (09:57→20:23)
[2023-01-21] MEDS: CHOLECALCIFEROL (VITAMIN D3) 2,000 UNIT TABLET GT SCH (09:57)
[2023-01-21] MEDS: APIXABAN 2.5 MG TABLET GT SCH ×2 (09:57→20:25)
[2023-01-21] MEDS: BACLOFEN 10 MG TABLET GT SCH ×3 (09:57→20:23)
[2023-01-21] MEDS: ASCORBIC ACID 500 MG TABLET GT SCH ×2 (09:57→20:23)
[2023-01-21] MEDS: amLODIPine BESYLATE 10 MG TABLET PO SCH (09:58)
[2023-01-21] MEDS: MULTIVITAMINS TAB 1 TABLET GT SCH (09:58)
[2023-01-21] MEDS: LevETIRAcetam 500 MG/5 ML UDC ORAL LIQUID GT SCH ×2 (09:58→20:23)
[2023-01-21] MEDS: CHLORHEXIDINE GLUC 0.12% 15 ML MOUTHWASH UDC MM SCH ×2 (10:00→20:22)
[2023-01-21] MEDS: BALSAM PERU/CASTOR OIL 56.7 GM OINT...G. TP SCH (10:00)
[2023-01-21] MEDS: MINERAL OIL/PETROLATUM,WHITE 3.5 GM EYE OINT. OP SCH ×2 (10:06→21:00)
[2023-01-21] MEDS: AZITHROMYCIN 500 MG in NS 250 ML IV SCH (14:15)
[2023-01-21] MEDS ORDERED: POTASSIUM CHLORIDE 20 MEQ/PKT PACKET PO ONE (17:00)
[2023-01-22] VITALS (35 sets, daily range): BP systolic 76–149; PULSE 77–137; RESP 18–24; TEMP 97.8–100.8; O2SAT 89–99
[2023-01-22] MEDS: ALBUTEROL SULFATE 0.083% 2.5 MG/3 ML VIAL.NEB INH SCH ×4 (01:57→19:00)
[2023-01-22] MEDS: traMADol HCL HCL 50 MG TABLET (ULTRAM) GT SCH ×4 (05:19→23:53)
[2023-01-22] MEDS: LR 1,000 ML IV SCH ×3 (05:20→23:52)
[2023-01-22] MEDS: PIPERACILLIN/TAZO 3.375/DEX-IS 50 ML IV SCH ×4 (05:20→23:52)
[2023-01-22] MEDS: GABAPENTIN 100 MG CAPSULE GT SCH ×3 (05:20→22:43)
[2023-01-22] MEDS: THEOPHYLLINE ANHYDROUS 80 MG/15 ML UDC GT SCH ×3 (05:20→22:43)
[2023-01-22 06:05] LABS: BASOPHILS # (AUTO) 0.1 K/uL (0.0-0.2); BASOPHILS % (AUTO) 0.5 % (0.0-2.0); EOSINOPHILS % (AUTO) 0.3 % (0.0-4.0); HEMATOCRIT 43.2 % (36-54); HEMOGLOBIN 14.2 g/dL (14.0-18.0); LYMPHOCYTES # (AUTO) 1.9 K/uL (1.0-5.5); LYMPHOCYTES % (AUTO) 9.8 % (20.5-51.5); MEAN CORPUSCULAR HEMOGLOBIN 31 pg (27-31); MEAN CORPUSCULAR HGB CONC 33 % (32-36); MEAN CORPUSCULAR VOLUME 94 fL (79.0-98.0); MONOCYTES # (AUTO) 2.3 K/uL (0.0-1.0); MONOCYTES % (AUTO) 12.1 % (1.7-9.3); NEUTROPHILS # (AUTO) 14.6 K/uL (1.8-7.7); NEUTROPHILS % (AUTO) 77.3 % (40.0-70.0); PLATELET COUNT (AUTO) 337 K/uL (130-430); RED BLOOD CELL COUNT(AUTO) 4.61 MIL/uL (4.2-6.2); RED CELL DISTRIBUTION WIDTH 13.5 % (9.0-15.0); WHITE BLOOD COUNT (AUTO) 18.9 K/uL (4.8-10.8)
[2023-01-22 06:23] LABS: ALBUMIN 2.6 g/dL (3.4-4.8); CALCIUM 9.5 mg/dL (8.4-11.0); CREATININE 0.55 mg/dL (0.55-1.30); TOTAL BILIRUBIN 0.9 mg/dL (0.0-1.0); TOTAL PROTEIN, SERUM 7.8 g/dL (6.4-8.3)
[2023-01-22] MEDS: IPRATROPIUM/ALBUTEROL SULFATE 3 ML AMPUL.NEB (DUONEB) IH SCH ×4 (08:04→23:00)
[2023-01-22] MEDS: CHOLECALCIFEROL (VITAMIN D3) 2,000 UNIT TABLET GT SCH (09:24)
[2023-01-22] MEDS: MULTIVITAMINS TAB 1 TABLET GT SCH (09:24)
[2023-01-22] MEDS: ASCORBIC ACID 500 MG TABLET GT SCH ×2 (09:24→20:14)
[2023-01-22] MEDS: amLODIPine BESYLATE 10 MG TABLET PO SCH (09:24)
[2023-01-22] MEDS: TAMSULOSIN HCL 0.4 MG CAP GT SCH ×2 (09:25→20:13)
[2023-01-22] MEDS: POTASSIUM CHLORIDE 20 MEQ/PKT PACKET GT SCH ×2 (09:25→20:15)
[2023-01-22] MEDS: DOCUSATE SODIUM 100 MG/10 ML UDC GT SCH (09:25)
[2023-01-22] MEDS: BACLOFEN 10 MG TABLET GT SCH ×3 (09:25→20:14)
[2023-01-22] MEDS: APIXABAN 2.5 MG TABLET GT SCH ×2 (09:25→20:14)
[2023-01-22] MEDS: CHLORHEXIDINE GLUC 0.12% 15 ML MOUTHWASH UDC MM SCH ×2 (09:26→20:13)
[2023-01-22] MEDS: BALSAM PERU/CASTOR OIL 56.7 GM OINT...G. TP SCH (09:26)
[2023-01-22] MEDS: LevETIRAcetam 500 MG/5 ML UDC ORAL LIQUID GT SCH ×2 (09:26→20:13)
[2023-01-22] MEDS: MINERAL OIL/PETROLATUM,WHITE 3.5 GM EYE OINT. OP SCH ×2 (09:27→20:15)
[2023-01-22] MEDS: AZITHROMYCIN 500 MG in NS 250 ML IV SCH (11:52)
[2023-01-22] MEDS: LORazepam 2 MG/ML VIAL IVP PRN (18:09)
[2023-01-22] MEDS: ACETAMINOPHEN 650 MG/20.3 ML UDC GT PRN (18:17)
[2023-01-22] MEDS ORDERED: METOPROLOL TARTRATE 5 MG/5 ML VIAL IVP PRN (18:45)
[2023-01-22] MEDS: VANCOMYCIN HCL 1,250 MG in NS 250 ML IV SCH (20:13)
[2023-01-22] MEDS ORDERED: METHYLPREDNISOLONE SOD SUCC 40 MG/ML VIAL IVP ONE (23:30)
[2023-01-22] MEDS ORDERED: NOREPINEPHRINE 4 MG/4 ML VIAL IV ONE (23:52)
[2023-01-23] VITALS (34 sets, daily range): BP systolic 76–144; PULSE 77–150; RESP 18; TEMP 97.2–99.8; O2SAT 94–98
[2023-01-23] MEDS: NOREPINEPHRINE BITARTRATE 16 MG in NS 234 ML IV PRN (00:29)
[2023-01-23] MEDS: ALBUTEROL SULFATE 0.083% 2.5 MG/3 ML VIAL.NEB INH SCH ×5 (00:35→19:41)
[2023-01-23] MEDS: GABAPENTIN 100 MG CAPSULE GT SCH ×3 (05:01→22:05)
[2023-01-23] MEDS: PIPERACILLIN/TAZO 3.375/DEX-IS 50 ML IV SCH ×4 (05:01→23:17)
[2023-01-23] MEDS: THEOPHYLLINE ANHYDROUS 80 MG/15 ML UDC GT SCH ×3 (05:01→22:00)
[2023-01-23] MEDS: traMADol HCL HCL 50 MG TABLET (ULTRAM) GT SCH ×3 (05:01→17:59)
[2023-01-23] MEDS: LORazepam 2 MG/ML VIAL IVP PRN ×2 (05:12→08:52)
[2023-01-23 05:21] LABS: BASOPHILS # (AUTO) 0.1 K/uL (0.0-0.2); BASOPHILS % (AUTO) 0.5 % (0.0-2.0); EOSINOPHILS % (AUTO) 0.1 % (0.0-4.0); HEMATOCRIT 45.3 % (36-54); HEMOGLOBIN 15.2 g/dL (14.0-18.0); LYMPHOCYTES # (AUTO) 0.6 K/uL (1.0-5.5); MEAN CORPUSCULAR HEMOGLOBIN 32 pg (27-31); MEAN CORPUSCULAR HGB CONC 33 % (32-36); MEAN CORPUSCULAR VOLUME 95 fL (79.0-98.0); MONOCYTES # (AUTO) 0.9 K/uL (0.0-1.0); MONOCYTES % (AUTO) 4.1 % (1.7-9.3); NEUTROPHILS # (AUTO) 19.5 K/uL (1.8-7.7); NEUTROPHILS % (AUTO) 92.3 % (40.0-70.0); PLATELET COUNT (AUTO) 362 K/uL (130-430); RED BLOOD CELL COUNT(AUTO) 4.78 MIL/uL (4.2-6.2); RED CELL DISTRIBUTION WIDTH 14.1 % (9.0-15.0); WHITE BLOOD COUNT (AUTO) 21.2 K/uL (4.8-10.8)
[2023-01-23 05:36] LABS: CALCIUM 10.7 mg/dL (8.4-11.0); CREATININE 0.73 mg/dL (0.55-1.30); POTASSIUM 3.6 mmol/L (3.5-5.1)
[2023-01-23] MEDS: IPRATROPIUM/ALBUTEROL SULFATE 3 ML AMPUL.NEB (DUONEB) IH SCH ×3 (07:00→19:00)
[2023-01-23] MEDS: MULTIVITAMINS TAB 1 TABLET GT SCH ×2 (08:49→08:50)
[2023-01-23] MEDS: BACLOFEN 10 MG TABLET GT SCH ×3 (08:50→20:42)
[2023-01-23] MEDS: CHOLECALCIFEROL (VITAMIN D3) 2,000 UNIT TABLET GT SCH (08:50)
[2023-01-23] MEDS: amLODIPine BESYLATE 10 MG TABLET PO SCH (08:51)
[2023-01-23] MEDS: APIXABAN 2.5 MG TABLET GT SCH ×2 (08:51→20:42)
[2023-01-23] MEDS: ASCORBIC ACID 500 MG TABLET GT SCH ×2 (08:51→20:42)
[2023-01-23] MEDS: VANCOMYCIN HCL 1,250 MG in NS 250 ML IV SCH (08:52)
[2023-01-23] MEDS: DOCUSATE SODIUM 100 MG/10 ML UDC GT SCH (08:52)
[2023-01-23] MEDS: POTASSIUM CHLORIDE 20 MEQ/PKT PACKET GT SCH ×2 (08:53→20:43)
[2023-01-23] MEDS: CHLORHEXIDINE GLUC 0.12% 15 ML MOUTHWASH UDC MM SCH ×2 (08:53→20:43)
[2023-01-23] MEDS: LevETIRAcetam 500 MG/5 ML UDC ORAL LIQUID GT SCH ×2 (08:53→20:43)
[2023-01-23] MEDS: TAMSULOSIN HCL 0.4 MG CAP GT SCH ×2 (08:53→20:42)
[2023-01-23] MEDS: BALSAM PERU/CASTOR OIL 56.7 GM OINT...G. TP SCH (09:00)
[2023-01-23] MEDS: MINERAL OIL/PETROLATUM,WHITE 3.5 GM EYE OINT. OP SCH ×2 (09:00→20:45)
[2023-01-23] MEDS: LR 1,000 ML IV SCH ×2 (11:39→17:59)
[2023-01-24] VITALS (36 sets, daily range): BP systolic 83–137; PULSE 85–107; RESP 18–19; TEMP 96.8–98; O2SAT 94–98
[2023-01-24] MEDS: LR 1,000 ML IV SCH (00:59)
[2023-01-24] MEDS: ALBUTEROL SULFATE 0.083% 2.5 MG/3 ML VIAL.NEB INH SCH ×4 (01:05→19:50)
[2023-01-24] MEDS: PIPERACILLIN/TAZO 3.375/DEX-IS 50 ML IV SCH ×3 (05:49→18:37)
[2023-01-24] MEDS: THEOPHYLLINE ANHYDROUS 80 MG/15 ML UDC GT SCH (05:50)
[2023-01-24] MEDS: GABAPENTIN 100 MG CAPSULE GT SCH ×3 (05:50→21:56)
[2023-01-24 06:33] LABS: HEMATOCRIT 46.6 % (36-54); HEMOGLOBIN 14.9 g/dL (14.0-18.0); MEAN CORPUSCULAR HEMOGLOBIN 31 pg (27-31); MEAN CORPUSCULAR HGB CONC 32 % (32-36); MEAN CORPUSCULAR VOLUME 96 fL (79.0-98.0); PLATELET COUNT (AUTO) 430 K/uL (130-430); RED BLOOD CELL COUNT(AUTO) 4.86 MIL/uL (4.2-6.2); RED CELL DISTRIBUTION WIDTH 14.2 % (9.0-15.0); WHITE BLOOD COUNT (AUTO) 26.6 K/uL (4.8-10.8)
[2023-01-24 07:44] LABS: ALBUMIN 2.4 g/dL (3.4-4.8); CALCIUM 10.4 mg/dL (8.4-11.0); CREATININE 0.79 mg/dL (0.55-1.30); PHOSPHORUS 2.5 mg/dL (2.7-4.5); POTASSIUM 3.1 mmol/L (3.5-5.1); TOTAL BILIRUBIN 0.8 mg/dL (0.0-1.0)
[2023-01-24 08:51] LABS: BAND % (MANUAL) 4 % (0-6); BASOPHILS % (MANUAL) 0 % (0-2); EOSINOPHILS % (MANUAL) 0 % (0-7); LYMPHOCYTES % (MANUAL) 5 % (20-46); MONOCYTES % (MANUAL) 5 % (0-11)
[2023-01-24 08:52] LABS: PLATELET ESTIMATE ADEQUATE (ADEQUATE)
[2023-01-24] MEDS: MINERAL OIL/PETROLATUM,WHITE 3.5 GM EYE OINT. OP SCH ×2 (09:00→21:36)
[2023-01-24] MEDS: amLODIPine BESYLATE 10 MG TABLET PO SCH (09:00)
[2023-01-24] MEDS: BALSAM PERU/CASTOR OIL 56.7 GM OINT...G. TP SCH (09:00)
[2023-01-24] MEDS: CHLORHEXIDINE GLUC 0.12% 15 ML MOUTHWASH UDC MM SCH ×2 (09:00→21:33)
[2023-01-24] MEDS ORDERED: POTASSIUM CHLORIDE 20 MEQ/PKT PACKET PO ONE (09:00)
[2023-01-24] MEDS ORDERED: POTASSIUM CHLORIDE 20 MEQ/PKT PACKET ONE (10:38)
[2023-01-24] MEDS: DOCUSATE SODIUM 100 MG/10 ML UDC GT SCH (10:39)
[2023-01-24] MEDS: POTASSIUM CHLORIDE 20 MEQ/PKT PACKET GT SCH ×2 (10:40→21:31)
[2023-01-24] MEDS: MULTIVITAMINS TAB 1 TABLET GT SCH (10:40)
[2023-01-24] MEDS: BACLOFEN 10 MG TABLET GT SCH ×3 (10:40→21:31)
[2023-01-24] MEDS: TAMSULOSIN HCL 0.4 MG CAP GT SCH ×2 (10:41→21:34)
[2023-01-24] MEDS: ASCORBIC ACID 500 MG TABLET GT SCH ×2 (10:41→21:34)
[2023-01-24] MEDS: CHOLECALCIFEROL (VITAMIN D3) 2,000 UNIT TABLET GT SCH (10:41)
[2023-01-24] MEDS: LevETIRAcetam 500 MG/5 ML UDC ORAL LIQUID GT SCH ×2 (10:41→21:31)
[2023-01-24] MEDS: APIXABAN 2.5 MG TABLET GT SCH ×2 (10:43→21:32)
[2023-01-24] MEDS: D5W 1,000 ML IV SCH ×3 (10:44→20:38)
[2023-01-24] MEDS: traMADol HCL HCL 50 MG TABLET (ULTRAM) GT SCH ×2 (12:00→12:49)
[2023-01-24 17:27] LABS: CALCIUM 9.5 mg/dL (8.4-11.0); CREATININE 0.92 mg/dL (0.55-1.30); POTASSIUM 3.6 mmol/L (3.5-5.1)
[2023-01-24] MEDS: NOREPINEPHRINE BITARTRATE 16 MG in NS 234 ML IV PRN (18:38)
[2023-01-24] MEDS ORDERED: DIATR MEGLU/DIATRIZ SOD 30 ML SOLUTION PO ONE (18:39)
[2023-01-24] MEDS: IPRATROPIUM/ALBUTEROL SULFATE 3 ML AMPUL.NEB (DUONEB) IH SCH ×2 (19:00→23:00)
[2023-01-24] MEDS ORDERED: DESMOPRESSIN 0.1 MG TAB (DDAVP) PO SCH (21:00)
[2023-01-24] MEDS ORDERED: DESMOPRESSIN ACETATE 4 MCG/ML AMP ONE (22:21)
[2023-01-24] MEDS ORDERED: DESMOPRESSIN ACETATE 4 MCG/ML AMP IVP ONE (23:45)
[2023-01-25] VITALS (35 sets, daily range): BP systolic 96–141; PULSE 76–102; RESP 18; TEMP 96.6–98; O2SAT 93–97
[2023-01-25] MEDS: PIPERACILLIN/TAZO 3.375/DEX-IS 50 ML IV SCH ×5 (00:14→18:42)
[2023-01-25] MEDS: D5W 1,000 ML IV SCH ×5 (00:31→19:05)
[2023-01-25] MEDS: ALBUTEROL SULFATE 0.083% 2.5 MG/3 ML VIAL.NEB INH SCH ×4 (00:56→19:40)
[2023-01-25] MEDS: GABAPENTIN 100 MG CAPSULE GT SCH ×2 (05:36→14:00)
[2023-01-25] MEDS: traMADol HCL HCL 50 MG TABLET (ULTRAM) GT SCH ×3 (05:36→18:00)
[2023-01-25 06:40] LABS: BASOPHILS % (AUTO) 0.1 % (0.0-2.0); HEMATOCRIT 42.7 % (36-54); HEMOGLOBIN 13.2 g/dL (14.0-18.0); LYMPHOCYTES % (AUTO) 11.4 % (20.5-51.5); MEAN CORPUSCULAR HEMOGLOBIN 30 pg (27-31); MEAN CORPUSCULAR HGB CONC 31 % (32-36); MEAN CORPUSCULAR VOLUME 98 fL (79.0-98.0); MONOCYTES # (AUTO) 1.8 K/uL (0.0-1.0); NEUTROPHILS # (AUTO) 13.7 K/uL (1.8-7.7); PLATELET COUNT (AUTO) 340 K/uL (130-430); RED BLOOD CELL COUNT(AUTO) 4.37 MIL/uL (4.2-6.2); WHITE BLOOD COUNT (AUTO) 17.5 K/uL (4.8-10.8)
[2023-01-25 06:44] LABS: ALBUMIN 2.2 g/dL (3.4-4.8); CALCIUM 9.1 mg/dL (8.4-11.0); CREATININE 0.79 mg/dL (0.55-1.30); PHOSPHORUS 2.9 mg/dL (2.7-4.5); TOTAL BILIRUBIN 0.8 mg/dL (0.0-1.0); TOTAL PROTEIN, SERUM 7.3 g/dL (6.4-8.3)
[2023-01-25 07:27] LABS: NEUTROPHILS % (AUTO) 78.5 % (40.0-70.0)
[2023-01-25] MEDS: MINERAL OIL/PETROLATUM,WHITE 3.5 GM EYE OINT. OP SCH ×2 (09:00→21:00)
[2023-01-25] MEDS: DOCUSATE SODIUM 100 MG/10 ML UDC GT SCH (10:44)
[2023-01-25] MEDS: TAMSULOSIN HCL 0.4 MG CAP GT SCH ×2 (10:44→21:00)
[2023-01-25] MEDS: MULTIVITAMINS TAB 1 TABLET GT SCH (10:45)
[2023-01-25] MEDS: BACLOFEN 10 MG TABLET GT SCH ×3 (10:45→21:00)
[2023-01-25] MEDS: POTASSIUM CHLORIDE 20 MEQ/PKT PACKET GT SCH ×2 (10:45→21:00)
[2023-01-25] MEDS: CHOLECALCIFEROL (VITAMIN D3) 2,000 UNIT TABLET GT SCH (10:45)
[2023-01-25] MEDS: APIXABAN 2.5 MG TABLET GT SCH (10:46)
[2023-01-25] MEDS: ASCORBIC ACID 500 MG TABLET GT SCH ×2 (10:48→21:00)
[2023-01-25] MEDS: CHLORHEXIDINE GLUC 0.12% 15 ML MOUTHWASH UDC MM SCH ×2 (11:50→21:00)
[2023-01-25] MEDS: BALSAM PERU/CASTOR OIL 56.7 GM OINT...G. TP SCH (11:50)
[2023-01-25] MEDS: LevETIRAcetam 500 MG/5 ML UDC ORAL LIQUID GT SCH ×2 (11:50→21:00)
[2023-01-25 17:02] LABS: HEMATOCRIT 41.4 % (36-54); HEMOGLOBIN 13.2 g/dL (14.0-18.0); MEAN CORPUSCULAR HEMOGLOBIN 31 pg (27-31); MEAN CORPUSCULAR HGB CONC 32 % (32-36); MEAN CORPUSCULAR VOLUME 97 fL (79.0-98.0); PLATELET COUNT (AUTO) 304 K/uL (130-430); RED BLOOD CELL COUNT(AUTO) 4.27 MIL/uL (4.2-6.2); RED CELL DISTRIBUTION WIDTH 15.2 % (9.0-15.0); WHITE BLOOD COUNT (AUTO) 17.7 K/uL (4.8-10.8)
[2023-01-25 17:32] LABS: BAND % (MANUAL) 3 % (0-6); BASOPHILS % (MANUAL) 0 % (0-2); EOSINOPHILS % (MANUAL) 0 % (0-7); LYMPHOCYTES % (MANUAL) 17 % (20-46); MONOCYTES % (MANUAL) 16 % (0-11); PLATELET ESTIMATE ADEQUATE (ADEQUATE)
[2023-01-25 17:33] LABS: TARGET CELLS FEW; TEAR DROP CELLS FEW
[2023-01-25 17:45] LABS: ALBUMIN 2.2 g/dL (3.4-4.8); CREATININE 0.65 mg/dL (0.55-1.30); POTASSIUM 3.6 mmol/L (3.5-5.1); TOTAL PROTEIN, SERUM 7.4 g/dL (6.4-8.3)
[2023-01-25] MEDS: IPRATROPIUM/ALBUTEROL SULFATE 3 ML AMPUL.NEB (DUONEB) IH SCH ×2 (19:00→23:00)
[2023-01-26] VITALS (36 sets, daily range): BP systolic 60–146; PULSE 62–87; RESP 18; TEMP 96.5–98.4; O2SAT 91–99
[2023-01-26] MEDS: PIPERACILLIN/TAZO 3.375/DEX-IS 50 ML IV SCH ×5 (00:19→23:09)
[2023-01-26] MEDS: traMADol HCL HCL 50 MG TABLET (ULTRAM) GT SCH ×3 (00:19→23:09)
[2023-01-26] MEDS: D5W 1,000 ML IV SCH ×4 (00:22→21:45)
[2023-01-26] MEDS: GABAPENTIN 100 MG CAPSULE GT SCH ×3 (05:25→21:45)
[2023-01-26 07:24] LABS: CALCIUM 9.1 mg/dL (8.4-11.0); CREATININE 0.62 mg/dL (0.55-1.30)
[2023-01-26] MEDS: ALBUTEROL SULFATE 0.083% 2.5 MG/3 ML VIAL.NEB INH SCH ×4 (07:29→19:40)
[2023-01-26] MEDS: CHOLECALCIFEROL (VITAMIN D3) 2,000 UNIT TABLET GT SCH (09:01)
[2023-01-26] MEDS: DOCUSATE SODIUM 100 MG/10 ML UDC GT SCH (09:01)
[2023-01-26] MEDS: MULTIVITAMINS TAB 1 TABLET GT SCH (09:01)
[2023-01-26] MEDS: BALSAM PERU/CASTOR OIL 56.7 GM OINT...G. TP SCH (09:05)
[2023-01-26 10:38] LABS: INR 1.5 (0.80-1.20)
[2023-01-26] MEDS: NOREPINEPHRINE BITARTRATE 16 MG in NS 234 ML IV PRN (10:46)
[2023-01-26] MEDS ORDERED: DESMOPRESSIN ACETATE 4 MCG/ML AMP SUBCUT SCH (21:00)
[2023-01-26] MEDS: DESMOPRESSIN ACETATE 4 MCG/ML AMP SUBCUT SCH (21:45)
[2023-01-26] MEDS: BACLOFEN 10 MG TABLET GT SCH (21:47)
[2023-01-26] MEDS: TAMSULOSIN HCL 0.4 MG CAP GT SCH (21:48)
[2023-01-26] MEDS: ASCORBIC ACID 500 MG TABLET GT SCH (21:49)
[2023-01-26] MEDS: CHLORHEXIDINE GLUC 0.12% 15 ML MOUTHWASH UDC MM SCH (21:49)
[2023-01-26] MEDS: LevETIRAcetam 500 MG/5 ML UDC ORAL LIQUID GT SCH (21:49)
[2023-01-26] MEDS: MINERAL OIL/PETROLATUM,WHITE 3.5 GM EYE OINT. OP SCH (21:49)
[2023-01-26] MEDS: POTASSIUM CHLORIDE 20 MEQ/PKT PACKET GT SCH (21:49)
[2023-01-27] VITALS (35 sets, daily range): BP systolic 75–179; PULSE 55–103; RESP 16–24; TEMP 89.3–98.3; O2SAT 93–100
[2023-01-27] MEDS: D5W 1,000 ML IV SCH ×4 (00:49→22:05)
[2023-01-27] MEDS: ALBUTEROL SULFATE 0.083% 2.5 MG/3 ML VIAL.NEB INH SCH ×4 (01:15→19:30)
[2023-01-27] MEDS: PIPERACILLIN/TAZO 3.375/DEX-IS 50 ML IV SCH (05:25)
[2023-01-27] MEDS: GABAPENTIN 100 MG CAPSULE GT SCH ×3 (05:25→21:31)
[2023-01-27] MEDS: traMADol HCL HCL 50 MG TABLET (ULTRAM) GT SCH ×2 (05:25→21:37)
[2023-01-27 06:06] LABS: BASOPHILS % (AUTO) 0.3 % (0.0-2.0); EOSINOPHILS # (AUTO) 0.4 K/uL (0.0-0.4); EOSINOPHILS % (AUTO) 4.2 % (0.0-4.0); HEMATOCRIT 39.8 % (36-54); HEMOGLOBIN 12.6 g/dL (14.0-18.0); LYMPHOCYTES # (AUTO) 1.4 K/uL (1.0-5.5); LYMPHOCYTES % (AUTO) 14.4 % (20.5-51.5); MEAN CORPUSCULAR HEMOGLOBIN 31 pg (27-31); MEAN CORPUSCULAR HGB CONC 32 % (32-36); MEAN CORPUSCULAR VOLUME 96 fL (79.0-98.0); MONOCYTES # (AUTO) 0.5 K/uL (0.0-1.0); MONOCYTES % (AUTO) 4.7 % (1.7-9.3); NEUTROPHILS # (AUTO) 7.5 K/uL (1.8-7.7); NEUTROPHILS % (AUTO) 76.4 % (40.0-70.0); PLATELET COUNT (AUTO) 197 K/uL (130-430); RED BLOOD CELL COUNT(AUTO) 4.14 MIL/uL (4.2-6.2); RED CELL DISTRIBUTION WIDTH 14.8 % (9.0-15.0); WHITE BLOOD COUNT (AUTO) 9.9 K/uL (4.8-10.8)
[2023-01-27 06:30] LABS: ALBUMIN 1.9 g/dL (3.4-4.8); CALCIUM 9.6 mg/dL (8.4-11.0); CREATININE 0.61 mg/dL (0.55-1.30); PHOSPHORUS 2.7 mg/dL (2.7-4.5); TOTAL BILIRUBIN 1.2 mg/dL (0.0-1.0); TOTAL PROTEIN, SERUM 6.7 g/dL (6.4-8.3)
[2023-01-27 07:33] LABS: POTASSIUM 2.9 mmol/L (3.5-5.1)
[2023-01-27] MEDS ORDERED: POTASSIUM CHLORIDE 20 MEQ/PKT PACKET PO ONE ×2 (07:45→15:00)
[2023-01-27] MEDS: MULTIVITAMINS TAB 1 TABLET GT SCH (09:00)
[2023-01-27] MEDS: DOCUSATE SODIUM 100 MG/10 ML UDC GT SCH (09:00)
[2023-01-27] MEDS: BALSAM PERU/CASTOR OIL 56.7 GM OINT...G. TP SCH (09:00)
[2023-01-27] MEDS: MINERAL OIL/PETROLATUM,WHITE 3.5 GM EYE OINT. OP SCH ×3 (09:00→21:46)
[2023-01-27] MEDS: TAMSULOSIN HCL 0.4 MG CAP GT SCH ×2 (09:00→21:31)
[2023-01-27] MEDS: ASCORBIC ACID 500 MG TABLET GT SCH ×2 (09:00→21:31)
[2023-01-27] MEDS: CHLORHEXIDINE GLUC 0.12% 15 ML MOUTHWASH UDC MM SCH ×2 (09:00→21:31)
[2023-01-27] MEDS: DESMOPRESSIN ACETATE 4 MCG/ML AMP SUBCUT SCH ×2 (09:00→21:31)
[2023-01-27] MEDS: CHOLECALCIFEROL (VITAMIN D3) 2,000 UNIT TABLET GT SCH (09:00)
[2023-01-27] MEDS: LevETIRAcetam 500 MG/5 ML UDC ORAL LIQUID GT SCH ×2 (09:00→21:31)
[2023-01-27] MEDS: BACLOFEN 10 MG TABLET GT SCH ×3 (09:00→21:31)
[2023-01-27] MEDS: POTASSIUM CHLORIDE 20 MEQ/PKT PACKET GT SCH ×2 (09:00→21:32)
[2023-01-27] MEDS ORDERED: PIPERACILLIN/TAZOBACTAM 3.375 GM/VIAL (ZOSYN) IV ONE (09:40)
[2023-01-27] MEDS ORDERED: LIDOCAINE 1% 10 MG/ML, 20 ML MDV ONE (09:40)
[2023-01-27] MEDS ORDERED: SEVOFLURANE 15 MIN GAS INH ONE (09:40)
[2023-01-27] MEDS ORDERED: D5W 1,000 ML IV.SOLN IV ONE (09:40)
[2023-01-27] MEDS ORDERED: NS 1000 ML IV.SOLN IV ONE (09:40)
[2023-01-27] MEDS ORDERED: MORPHINE 4 MG INJ. 4 MG/ML VIAL IVP PRN (13:00)
[2023-01-27] MEDS ORDERED: ONDANSETRON HCL 4 MG/2 ML VIAL IVP PRN (13:00)
[2023-01-27] MEDS ORDERED: NACL 0.9% 1,000 ML IV ONE (17:30)
[2023-01-27] MEDS ORDERED: MIDODRINE HCL 5 MG TABLET (PROAMATINE) PO ONE (17:30)
[2023-01-27] MEDS: CEFTAZIDIME 2 GM in D5W 100 ML IV SCH (21:30)
[2023-01-27] MEDS: MIDODRINE HCL 5 MG TABLET (PROAMATINE) PO SCH (21:31)
[2023-01-28] VITALS (36 sets, daily range): BP systolic 74–151; PULSE 76–103; RESP 18–19; TEMP 97.5–98.9; O2SAT 90–98
[2023-01-28] MEDS: NOREPINEPHRINE BITARTRATE 16 MG in NS 234 ML IV PRN ×3 (00:45→22:10)
[2023-01-28] MEDS: ALBUTEROL SULFATE 0.083% 2.5 MG/3 ML VIAL.NEB INH SCH ×3 (01:13→19:40)
[2023-01-28] MEDS: D5W 1,000 ML IV SCH ×3 (05:07→18:31)
[2023-01-28] MEDS: GABAPENTIN 100 MG CAPSULE GT SCH ×3 (05:07→21:23)
[2023-01-28 05:18] LABS: BASOPHILS % (AUTO) 0.1 % (0.0-2.0); EOSINOPHILS # (AUTO) 0.3 K/uL (0.0-0.4); EOSINOPHILS % (AUTO) 0.7 % (0.0-4.0); HEMATOCRIT 41.4 % (36-54); HEMOGLOBIN 12.8 g/dL (14.0-18.0); LYMPHOCYTES # (AUTO) 0.7 K/uL (1.0-5.5); LYMPHOCYTES % (AUTO) 1.9 % (20.5-51.5); MEAN CORPUSCULAR HEMOGLOBIN 30 pg (27-31); MEAN CORPUSCULAR HGB CONC 31 % (32-36); MEAN CORPUSCULAR VOLUME 97 fL (79.0-98.0); MONOCYTES # (AUTO) 1.2 K/uL (0.0-1.0); MONOCYTES % (AUTO) 3.4 % (1.7-9.3); NEUTROPHILS % (AUTO) 93.9 % (40.0-70.0); PLATELET COUNT (AUTO) 139 K/uL (130-430); RED BLOOD CELL COUNT(AUTO) 4.27 MIL/uL (4.2-6.2)
[2023-01-28 05:55] LABS: ALBUMIN 1.9 g/dL (3.4-4.8); CALCIUM 8.9 mg/dL (8.4-11.0); CREATININE 1.01 mg/dL (0.55-1.30); POTASSIUM 4.8 mmol/L (3.5-5.1); TOTAL PROTEIN, SERUM 6.8 g/dL (6.4-8.3)
[2023-01-28 06:16] LABS: WHITE BLOOD COUNT (AUTO) 35.2 K/uL (4.8-10.8)
[2023-01-28 07:47] LABS: TOTAL BILIRUBIN 2.1 mg/dL (0.0-1.0)
[2023-01-28] MEDS: CEFTAZIDIME 2 GM in D5W 100 ML IV SCH ×2 (09:20→21:12)
[2023-01-28] MEDS: DOCUSATE SODIUM 100 MG/10 ML UDC GT SCH (09:22)
[2023-01-28] MEDS: CHLORHEXIDINE GLUC 0.12% 15 ML MOUTHWASH UDC MM SCH ×2 (09:22→20:14)
[2023-01-28] MEDS: LevETIRAcetam 500 MG/5 ML UDC ORAL LIQUID GT SCH ×2 (09:22→20:14)
[2023-01-28] MEDS: MULTIVITAMINS TAB 1 TABLET GT SCH (09:22)
[2023-01-28] MEDS: BACLOFEN 10 MG TABLET GT SCH ×3 (09:23→20:14)
[2023-01-28] MEDS: TAMSULOSIN HCL 0.4 MG CAP GT SCH ×2 (09:23→20:14)
[2023-01-28] MEDS: CHOLECALCIFEROL (VITAMIN D3) 2,000 UNIT TABLET GT SCH (09:23)
[2023-01-28] MEDS: ASCORBIC ACID 500 MG TABLET GT SCH ×2 (09:23→20:14)
[2023-01-28] MEDS: DESMOPRESSIN ACETATE 4 MCG/ML AMP SUBCUT SCH ×2 (09:31→20:18)
[2023-01-28] MEDS: BALSAM PERU/CASTOR OIL 56.7 GM OINT...G. TP SCH (09:51)
[2023-01-28] MEDS: MIDODRINE HCL 5 MG TABLET (PROAMATINE) PO SCH ×3 (09:52→20:14)
[2023-01-28] MEDS: POTASSIUM CHLORIDE 20 MEQ/PKT PACKET GT SCH ×2 (10:38→20:15)
[2023-01-28] MEDS ORDERED: D5W 1,000 ML IV SCH (12:00)
[2023-01-28] MEDS: FLUCONAZOLE 200 mg/ NS 100 ML IV SCH (12:09)
[2023-01-28] MEDS: metroNIDAZOLE 500 mg/NS 100 ML IV SCH ×2 (14:35→21:23)
[2023-01-28] MEDS ORDERED: MAGNESIUM SULFATE 4 GM in D5W 250 ML IV ONE (15:00)
[2023-01-28] MEDS: MINERAL OIL/PETROLATUM,WHITE 3.5 GM EYE OINT. OP SCH (20:15)
[2023-01-29] VITALS (31 sets, daily range): BP systolic 76–132; PULSE 72–90; RESP 18–28; TEMP 96.3–100.8; O2SAT 94–98
[2023-01-29] MEDS: ALBUTEROL SULFATE 0.083% 2.5 MG/3 ML VIAL.NEB INH SCH ×4 (00:45→19:40)
[2023-01-29] MEDS: D5W 1,000 ML IV SCH ×2 (04:18→12:17)
[2023-01-29] MEDS: metroNIDAZOLE 500 mg/NS 100 ML IV SCH ×3 (05:14→21:55)
[2023-01-29] MEDS: GABAPENTIN 100 MG CAPSULE GT SCH ×3 (05:14→21:46)
[2023-01-29 05:31] LABS: ALBUMIN 1.6 g/dL (3.4-4.8); CREATININE 0.68 mg/dL (0.55-1.30); TOTAL PROTEIN, SERUM 6.1 g/dL (6.4-8.3)
[2023-01-29 06:04] LABS: POTASSIUM 2.6 mmol/L (3.5-5.1)
[2023-01-29] MEDS: NOREPINEPHRINE BITARTRATE 16 MG in NS 234 ML IV PRN ×2 (06:25→21:27)
[2023-01-29] MEDS ORDERED: KCL 40 mEq in 100 mL (PREMIX) 100 ML IV ONE (06:30)
[2023-01-29 06:34] LABS: HEMATOCRIT 37.1 % (36-54); HEMOGLOBIN 11.9 g/dL (14.0-18.0); MEAN CORPUSCULAR HEMOGLOBIN 30 pg (27-31); MEAN CORPUSCULAR HGB CONC 32 % (32-36); MEAN CORPUSCULAR VOLUME 94 fL (79.0-98.0); PLATELET COUNT (AUTO) 67 K/uL (130-430); RED BLOOD CELL COUNT(AUTO) 3.93 MIL/uL (4.2-6.2); RED CELL DISTRIBUTION WIDTH 14.3 % (9.0-15.0); WHITE BLOOD COUNT (AUTO) 13.4 K/uL (4.8-10.8)
[2023-01-29 08:43] LABS: BAND % (MANUAL) 24 % (0-6); BASOPHILS % (MANUAL) 0 % (0-2); EOSINOPHILS % (MANUAL) 1 % (0-7); LYMPHOCYTES % (MANUAL) 4 % (20-46); METAMYELOCYTES % 4 % (0-0); MONOCYTES % (MANUAL) 4 % (0-11)
[2023-01-29 08:44] LABS: PLATELET ESTIMATE DECREASED (ADEQUATE)
[2023-01-29] MEDS: ASCORBIC ACID 500 MG TABLET GT SCH ×2 (09:25→21:46)
[2023-01-29] MEDS: DOCUSATE SODIUM 100 MG/10 ML UDC GT SCH (09:25)
[2023-01-29] MEDS: BACLOFEN 10 MG TABLET GT SCH ×3 (09:25→21:46)
[2023-01-29] MEDS: CHOLECALCIFEROL (VITAMIN D3) 2,000 UNIT TABLET GT SCH (09:25)
[2023-01-29] MEDS: POTASSIUM CHLORIDE 20 MEQ/PKT PACKET GT SCH ×2 (09:26→21:46)
[2023-01-29] MEDS: TAMSULOSIN HCL 0.4 MG CAP GT SCH ×2 (09:26→21:46)
[2023-01-29] MEDS: MULTIVITAMINS TAB 1 TABLET GT SCH (09:26)
[2023-01-29] MEDS: CEFTAZIDIME 2 GM in D5W 100 ML IV SCH ×2 (09:27→21:49)
[2023-01-29] MEDS: CHLORHEXIDINE GLUC 0.12% 15 ML MOUTHWASH UDC MM SCH ×2 (09:29→21:45)
[2023-01-29] MEDS: BALSAM PERU/CASTOR OIL 56.7 GM OINT...G. TP SCH (09:30)
[2023-01-29] MEDS: MINERAL OIL/PETROLATUM,WHITE 3.5 GM EYE OINT. OP SCH ×2 (09:31→21:46)
[2023-01-29] MEDS: LevETIRAcetam 500 MG/5 ML UDC ORAL LIQUID GT SCH ×2 (09:40→21:45)
[2023-01-29] MEDS: MIDODRINE HCL 5 MG TABLET (PROAMATINE) PO SCH ×3 (09:41→21:45)
[2023-01-29] MEDS: DESMOPRESSIN ACETATE 4 MCG/ML AMP SUBCUT SCH ×2 (09:41→21:49)
[2023-01-29] MEDS: FLUCONAZOLE 200 mg/ NS 100 ML IV SCH (12:09)
[2023-01-29] MEDS ORDERED: POTASSIUM CHLORIDE 20 MEQ/PKT PACKET GT ONE (15:30)
[2023-01-29] MEDS ORDERED: MULTIVITAMINS,THERAPEUTIC 5 ML UDC GT SCH (15:30)
[2023-01-29] MEDS: LR 1,000 ML IV SCH (15:54)
[2023-01-30] VITALS (25 sets, daily range): BP systolic 71–119; PULSE 59–93; RESP 18–20; TEMP 97.4–98.5; O2SAT 94–99
[2023-01-30] MEDS: ALBUTEROL SULFATE 0.083% 2.5 MG/3 ML VIAL.NEB INH SCH ×4 (00:51→19:39)
[2023-01-30] MEDS: LR 1,000 ML IV SCH ×2 (04:00→17:23)
[2023-01-30 05:06] LABS: BASOPHILS % (AUTO) 0.2 % (0.0-2.0); EOSINOPHILS # (AUTO) 0.3 K/uL (0.0-0.4); EOSINOPHILS % (AUTO) 2.6 % (0.0-4.0); HEMATOCRIT 36.1 % (36-54); HEMOGLOBIN 12.3 g/dL (14.0-18.0); LYMPHOCYTES # (AUTO) 0.8 K/uL (1.0-5.5); LYMPHOCYTES % (AUTO) 6.4 % (20.5-51.5); MEAN CORPUSCULAR HEMOGLOBIN 32 pg (27-31); MEAN CORPUSCULAR HGB CONC 34 % (32-36); MEAN CORPUSCULAR VOLUME 92 fL (79.0-98.0); MONOCYTES # (AUTO) 0.8 K/uL (0.0-1.0); MONOCYTES % (AUTO) 6.3 % (1.7-9.3); NEUTROPHILS # (AUTO) 10.2 K/uL (1.8-7.7); NEUTROPHILS % (AUTO) 84.5 % (40.0-70.0); PLATELET COUNT (AUTO) 50 K/uL (130-430); RED BLOOD CELL COUNT(AUTO) 3.92 MIL/uL (4.2-6.2); RED CELL DISTRIBUTION WIDTH 13.7 % (9.0-15.0); WHITE BLOOD COUNT (AUTO) 12.1 K/uL (4.8-10.8)
[2023-01-30] MEDS: metroNIDAZOLE 500 mg/NS 100 ML IV SCH ×3 (05:50→21:45)
[2023-01-30] MEDS: GABAPENTIN 100 MG CAPSULE GT SCH ×3 (05:50→21:45)
[2023-01-30 05:51] LABS: ALBUMIN 1.6 g/dL (3.4-4.8); CALCIUM 8.9 mg/dL (8.4-11.0); CREATININE 0.6 mg/dL (0.55-1.30); PHOSPHORUS 2.1 mg/dL (2.7-4.5); TOTAL BILIRUBIN 1.5 mg/dL (0.0-1.0); TOTAL PROTEIN, SERUM 6.1 g/dL (6.4-8.3)
[2023-01-30 06:03] LABS: POTASSIUM 2.6 mmol/L (3.5-5.1)
[2023-01-30] MEDS ORDERED: KCL 40 mEq in 100 mL (PREMIX) 100 ML IV ONE ×2 (06:19→06:30)
[2023-01-30] MEDS: POTASSIUM CHLORIDE 20 MEQ/PKT PACKET GT SCH ×3 (09:12→21:46)
[2023-01-30] MEDS: ASCORBIC ACID 500 MG TABLET GT SCH ×2 (09:13→21:45)
[2023-01-30] MEDS: TAMSULOSIN HCL 0.4 MG CAP GT SCH ×2 (09:13→21:45)
[2023-01-30] MEDS: MULTIVITAMINS TAB 1 TABLET GT SCH (09:13)
[2023-01-30] MEDS: CHLORHEXIDINE GLUC 0.12% 15 ML MOUTHWASH UDC MM SCH ×2 (09:13→21:45)
[2023-01-30] MEDS: BACLOFEN 10 MG TABLET GT SCH ×3 (09:14→21:46)
[2023-01-30] MEDS: CHOLECALCIFEROL (VITAMIN D3) 2,000 UNIT TABLET GT SCH (09:14)
[2023-01-30] MEDS: MIDODRINE HCL 5 MG TABLET (PROAMATINE) PO SCH ×3 (09:14→21:46)
[2023-01-30] MEDS: LevETIRAcetam 500 MG/5 ML UDC ORAL LIQUID GT SCH ×2 (09:14→21:45)
[2023-01-30] MEDS: DOCUSATE SODIUM 100 MG/10 ML UDC GT SCH (09:15)
[2023-01-30] MEDS: CEFTAZIDIME 2 GM in D5W 100 ML IV SCH ×2 (09:18→21:44)
[2023-01-30] MEDS: DESMOPRESSIN ACETATE 4 MCG/ML AMP SUBCUT SCH ×2 (09:19→21:45)
[2023-01-30] MEDS: BALSAM PERU/CASTOR OIL 56.7 GM OINT...G. TP SCH (10:22)
[2023-01-30] MEDS: MINERAL OIL/PETROLATUM,WHITE 3.5 GM EYE OINT. OP SCH ×2 (10:23→21:47)
[2023-01-30] MEDS ORDERED: K PHOS 15 MM in NS 250 ML IV ONE (11:00)
[2023-01-30] MEDS: FLUCONAZOLE 200 mg/ NS 100 ML IV SCH (11:14)
[2023-01-30] MEDS ORDERED: METOCLOPRAMIDE HCL 10 MG/2 ML VIAL IVP ONE (15:00)
[2023-01-30] MEDS: KCL 40 mEq in D5W 1000 mL 1,000 ML IV SCH (16:06)
[2023-01-30] MEDS: NOREPINEPHRINE BITARTRATE 16 MG in NS 234 ML IV PRN (17:17)
[2023-01-31] VITALS (29 sets, daily range): BP systolic 80–151; PULSE 63–86; RESP 18–20; TEMP 97–99.9; O2SAT 94–99
[2023-01-31] MEDS: ALBUTEROL SULFATE 0.083% 2.5 MG/3 ML VIAL.NEB INH SCH ×4 (00:10→19:34)
[2023-01-31] MEDS: METOCLOPRAMIDE HCL 10 MG/2 ML VIAL IVP SCH ×4 (00:19→18:00)
[2023-01-31] MEDS: KCL 40 mEq in D5W 1000 mL 1,000 ML IV SCH ×3 (00:20→23:58)
[2023-01-31] MEDS: LR 1,000 ML IV SCH ×2 (05:52→17:30)
[2023-01-31] MEDS: GABAPENTIN 100 MG CAPSULE GT SCH ×3 (05:52→23:59)
[2023-01-31] MEDS: metroNIDAZOLE 500 mg/NS 100 ML IV SCH ×2 (05:52→14:37)
[2023-01-31 05:57] LABS: BASOPHILS % (AUTO) 0.3 % (0.0-2.0); EOSINOPHILS # (AUTO) 0.3 K/uL (0.0-0.4); EOSINOPHILS % (AUTO) 2.5 % (0.0-4.0); HEMATOCRIT 36.4 % (36-54); HEMOGLOBIN 12.5 g/dL (14.0-18.0); LYMPHOCYTES # (AUTO) 1.1 K/uL (1.0-5.5); MEAN CORPUSCULAR HEMOGLOBIN 32 pg (27-31); MEAN CORPUSCULAR HGB CONC 34 % (32-36); MEAN CORPUSCULAR VOLUME 92 fL (79.0-98.0); MONOCYTES # (AUTO) 0.8 K/uL (0.0-1.0); MONOCYTES % (AUTO) 8.3 % (1.7-9.3); NEUTROPHILS # (AUTO) 7.9 K/uL (1.8-7.7); NEUTROPHILS % (AUTO) 77.9 % (40.0-70.0); RED BLOOD CELL COUNT(AUTO) 3.96 MIL/uL (4.2-6.2); RED CELL DISTRIBUTION WIDTH 14.2 % (9.0-15.0); WHITE BLOOD COUNT (AUTO) 10.1 K/uL (4.8-10.8)
[2023-01-31 06:38] LABS: CALCIUM 8.8 mg/dL (8.4-11.0); CREATININE 0.68 mg/dL (0.55-1.30); POTASSIUM 4.1 mmol/L (3.5-5.1)
[2023-01-31 07:20] LABS: PLATELET COUNT (AUTO) 45 K/uL (130-430)
[2023-01-31] MEDS: DOCUSATE SODIUM 100 MG/10 ML UDC GT SCH (09:00)
[2023-01-31] MEDS: CEFTAZIDIME 2 GM in D5W 100 ML IV SCH (09:09)
[2023-01-31] MEDS: CHLORHEXIDINE GLUC 0.12% 15 ML MOUTHWASH UDC MM SCH ×2 (09:10→21:00)
[2023-01-31] MEDS: MIDODRINE HCL 5 MG TABLET (PROAMATINE) PO SCH ×3 (09:10→23:59)
[2023-01-31] MEDS: BACLOFEN 10 MG TABLET GT SCH ×3 (09:11→23:51)
[2023-01-31] MEDS: MULTIVITAMINS TAB 1 TABLET GT SCH (09:11)
[2023-01-31] MEDS: TAMSULOSIN HCL 0.4 MG CAP GT SCH ×2 (09:11→23:51)
[2023-01-31] MEDS: LevETIRAcetam 500 MG/5 ML UDC ORAL LIQUID GT SCH ×2 (09:11→23:57)
[2023-01-31] MEDS: POTASSIUM CHLORIDE 20 MEQ/PKT PACKET GT SCH ×2 (09:11→23:51)
[2023-01-31] MEDS: CHOLECALCIFEROL (VITAMIN D3) 2,000 UNIT TABLET GT SCH (09:11)
[2023-01-31] MEDS: ASCORBIC ACID 500 MG TABLET GT SCH ×2 (09:11→23:51)
[2023-01-31] MEDS: DESMOPRESSIN ACETATE 4 MCG/ML AMP SUBCUT SCH (09:18)
[2023-01-31] MEDS: BALSAM PERU/CASTOR OIL 56.7 GM OINT...G. TP SCH (09:18)
[2023-01-31] MEDS: MINERAL OIL/PETROLATUM,WHITE 3.5 GM EYE OINT. OP SCH ×2 (10:07→21:00)
[2023-01-31] MEDS: NOREPINEPHRINE BITARTRATE 16 MG in NS 234 ML IV PRN (15:17)
[2023-01-31] MEDS ORDERED: GASTROGRAFIN 120 ML ONE (16:28)
[2023-02-01] VITALS (33 sets, daily range): BP systolic 78–119; PULSE 69–87; RESP 18; TEMP 97–97.5; O2SAT 94–98
[2023-02-01] MEDS: metroNIDAZOLE 500 mg/NS 100 ML IV SCH ×4 (00:05→22:41)
[2023-02-01] MEDS: DESMOPRESSIN ACETATE 4 MCG/ML AMP SUBCUT SCH ×3 (00:05→22:41)
[2023-02-01] MEDS: CEFTAZIDIME 2 GM in D5W 100 ML IV SCH ×3 (00:06→22:36)
[2023-02-01] MEDS: ALBUTEROL SULFATE 0.083% 2.5 MG/3 ML VIAL.NEB INH SCH ×4 (02:17→20:10)
[2023-02-01] MEDS: LR 1,000 ML IV SCH ×2 (05:24→18:30)
[2023-02-01] MEDS: KCL 40 mEq in D5W 1000 mL 1,000 ML IV SCH ×2 (05:32→13:43)
[2023-02-01] MEDS: METOCLOPRAMIDE HCL 10 MG/2 ML VIAL IVP SCH ×5 (05:33→23:58)
[2023-02-01] MEDS: GABAPENTIN 100 MG CAPSULE GT SCH ×3 (05:34→22:41)
[2023-02-01 07:00] LABS: BASOPHILS % (AUTO) 0.3 % (0.0-2.0); EOSINOPHILS # (AUTO) 0.3 K/uL (0.0-0.4); EOSINOPHILS % (AUTO) 2.4 % (0.0-4.0); HEMATOCRIT 39.2 % (36-54); HEMOGLOBIN 13.4 g/dL (14.0-18.0); LYMPHOCYTES # (AUTO) 1.6 K/uL (1.0-5.5); LYMPHOCYTES % (AUTO) 15.3 % (20.5-51.5); MEAN CORPUSCULAR HEMOGLOBIN 32 pg (27-31); MEAN CORPUSCULAR HGB CONC 34 % (32-36); MEAN CORPUSCULAR VOLUME 92 fL (79.0-98.0); MONOCYTES # (AUTO) 1.1 K/uL (0.0-1.0); MONOCYTES % (AUTO) 10.4 % (1.7-9.3); NEUTROPHILS # (AUTO) 7.5 K/uL (1.8-7.7); NEUTROPHILS % (AUTO) 71.6 % (40.0-70.0); PLATELET COUNT (AUTO) 56 K/uL (130-430); RED BLOOD CELL COUNT(AUTO) 4.26 MIL/uL (4.2-6.2); WHITE BLOOD COUNT (AUTO) 10.4 K/uL (4.8-10.8)
[2023-02-01 07:06] LABS: ALBUMIN 1.6 g/dL (3.4-4.8); CALCIUM 9.3 mg/dL (8.4-11.0); CREATININE 0.82 mg/dL (0.55-1.30); PHOSPHORUS 3.4 mg/dL (2.7-4.5); POTASSIUM 3.9 mmol/L (3.5-5.1); TOTAL BILIRUBIN 1.3 mg/dL (0.0-1.0); TOTAL PROTEIN, SERUM 6.5 g/dL (6.4-8.3)
[2023-02-01] MEDS: BACLOFEN 10 MG TABLET GT SCH ×3 (08:28→22:34)
[2023-02-01] MEDS: MULTIVITAMINS TAB 1 TABLET GT SCH (08:28)
[2023-02-01] MEDS: CHOLECALCIFEROL (VITAMIN D3) 2,000 UNIT TABLET GT SCH (08:28)
[2023-02-01] MEDS: FLUDROCORTISONE ACETATE 0.1 MG TABLET( FLORINEF) PO SCH (08:28)
[2023-02-01] MEDS: POTASSIUM CHLORIDE 20 MEQ/PKT PACKET GT SCH ×2 (08:29→22:35)
[2023-02-01] MEDS: DOCUSATE SODIUM 100 MG/10 ML UDC GT SCH (08:29)
[2023-02-01] MEDS: CHLORHEXIDINE GLUC 0.12% 15 ML MOUTHWASH UDC MM SCH ×2 (08:29→22:38)
[2023-02-01] MEDS: TAMSULOSIN HCL 0.4 MG CAP GT SCH ×2 (08:29→22:34)
[2023-02-01] MEDS: LevETIRAcetam 500 MG/5 ML UDC ORAL LIQUID GT SCH ×2 (08:30→22:36)
[2023-02-01] MEDS: MIDODRINE HCL 5 MG TABLET (PROAMATINE) PO SCH ×3 (08:31→22:40)
[2023-02-01] MEDS: ASCORBIC ACID 500 MG TABLET GT SCH ×2 (08:32→22:36)
[2023-02-01] MEDS: MINERAL OIL/PETROLATUM,WHITE 3.5 GM EYE OINT. OP SCH ×2 (08:32→21:00)
[2023-02-01] MEDS: BALSAM PERU/CASTOR OIL 56.7 GM OINT...G. TP SCH (08:33)
[2023-02-01] MEDS: NOREPINEPHRINE BITARTRATE 16 MG in NS 234 ML IV PRN (09:03)
[2023-02-01] MEDS: FLUCONAZOLE IN NACL,ISO-OSM 200 ML IV SCH (12:49)
[2023-02-01] MEDS: ALBUMIN HUMAN 25% 50 ML IV SCH ×2 (13:41→19:30)
[2023-02-02] VITALS (38 sets, daily range): BP systolic 82–142; PULSE 57–91; RESP 18; TEMP 97.3–97.7; O2SAT 95–99
[2023-02-02] MEDS: ALBUTEROL SULFATE 0.083% 2.5 MG/3 ML VIAL.NEB INH SCH ×4 (01:18→19:31)
[2023-02-02] MEDS: KCL 40 mEq in D5W 1000 mL 1,000 ML IV SCH (03:12)
[2023-02-02] MEDS: ALBUMIN HUMAN 25% 50 ML IV SCH (03:19)
[2023-02-02 04:49] LABS: BASOPHILS # (AUTO) 0.1 K/uL (0.0-0.2); BASOPHILS % (AUTO) 0.6 % (0.0-2.0); EOSINOPHILS # (AUTO) 0.2 K/uL (0.0-0.4); EOSINOPHILS % (AUTO) 1.7 % (0.0-4.0); HEMATOCRIT 36.1 % (36-54); HEMOGLOBIN 12.4 g/dL (14.0-18.0); LYMPHOCYTES # (AUTO) 1.8 K/uL (1.0-5.5); LYMPHOCYTES % (AUTO) 17.7 % (20.5-51.5); MEAN CORPUSCULAR HEMOGLOBIN 31 pg (27-31); MEAN CORPUSCULAR HGB CONC 34 % (32-36); MEAN CORPUSCULAR VOLUME 90 fL (79.0-98.0); MONOCYTES # (AUTO) 1.3 K/uL (0.0-1.0); MONOCYTES % (AUTO) 12.6 % (1.7-9.3); NEUTROPHILS # (AUTO) 6.8 K/uL (1.8-7.7); NEUTROPHILS % (AUTO) 67.4 % (40.0-70.0); PLATELET COUNT (AUTO) 70 K/uL (130-430); RED CELL DISTRIBUTION WIDTH 14.3 % (9.0-15.0); WHITE BLOOD COUNT (AUTO) 10.1 K/uL (4.8-10.8)
[2023-02-02 04:58] LABS: CALCIUM 8.8 mg/dL (8.4-11.0); CREATININE 0.76 mg/dL (0.55-1.30); POTASSIUM 4.1 mmol/L (3.5-5.1); TOTAL BILIRUBIN 1.6 mg/dL (0.0-1.0); TOTAL PROTEIN, SERUM 6.5 g/dL (6.4-8.3)
[2023-02-02] MEDS: METOCLOPRAMIDE HCL 10 MG/2 ML VIAL IVP SCH ×3 (06:00→17:30)
[2023-02-02] MEDS: LR 1,000 ML IV SCH (06:24)
[2023-02-02] MEDS: metroNIDAZOLE 500 mg/NS 100 ML IV SCH ×3 (06:24→22:22)
[2023-02-02] MEDS: GABAPENTIN 100 MG CAPSULE GT SCH ×3 (06:25→22:22)
[2023-02-02 07:07] LABS: CORTISOL (SERUM) 3.5 ug/dL (6.2-19.4)
[2023-02-02] MEDS: TAMSULOSIN HCL 0.4 MG CAP GT SCH ×2 (08:12→20:08)
[2023-02-02] MEDS: ASCORBIC ACID 500 MG TABLET GT SCH ×2 (08:12→20:09)
[2023-02-02] MEDS: CHOLECALCIFEROL (VITAMIN D3) 2,000 UNIT TABLET GT SCH (08:12)
[2023-02-02] MEDS: FLUDROCORTISONE ACETATE 0.1 MG TABLET( FLORINEF) PO SCH (08:12)
[2023-02-02] MEDS: BACLOFEN 10 MG TABLET GT SCH ×3 (08:12→20:08)
[2023-02-02] MEDS: POTASSIUM CHLORIDE 20 MEQ/PKT PACKET GT SCH ×2 (08:12→20:08)
[2023-02-02] MEDS: MULTIVITAMINS TAB 1 TABLET GT SCH (08:12)
[2023-02-02] MEDS: MIDODRINE HCL 5 MG TABLET (PROAMATINE) PO SCH ×3 (08:13→20:18)
[2023-02-02] MEDS: DOCUSATE SODIUM 100 MG/10 ML UDC GT SCH (08:13)
[2023-02-02] MEDS: CHLORHEXIDINE GLUC 0.12% 15 ML MOUTHWASH UDC MM SCH ×2 (08:13→20:17)
[2023-02-02] MEDS: LevETIRAcetam 500 MG/5 ML UDC ORAL LIQUID GT SCH ×2 (08:15→20:18)
[2023-02-02] MEDS: DESMOPRESSIN ACETATE 4 MCG/ML AMP SUBCUT SCH (08:16)
[2023-02-02] MEDS: BALSAM PERU/CASTOR OIL 56.7 GM OINT...G. TP SCH (08:17)
[2023-02-02] MEDS: MINERAL OIL/PETROLATUM,WHITE 3.5 GM EYE OINT. OP SCH ×2 (08:26→20:35)
[2023-02-02] MEDS: CEFTAZIDIME 2 GM in D5W 100 ML IV SCH ×2 (08:27→20:14)
[2023-02-02] MEDS ORDERED: HYDROCORTISONE SOD SUCC 100 MG/2 ML VIAL IVP ONE (12:15)
[2023-02-02] MEDS: NACL 0.9% 1,000 ML IV SCH ×2 (12:22→20:36)
[2023-02-02] MEDS: FLUCONAZOLE IN NACL,ISO-OSM 200 ML IV SCH (12:33)
[2023-02-02] MEDS: HYDROCORTISONE SOD SUCC 100 MG/2 ML VIAL IVP SCH (20:10)
[2023-02-02] MEDS ORDERED: NOREPINEPHRINE 4 MG/4 ML VIAL IV ONE (22:05)
[2023-02-02] MEDS: NOREPINEPHRINE BITARTRATE 16 MG in NS 234 ML IV PRN (22:19)
[2023-02-03] VITALS (36 sets, daily range): BP systolic 92–151; PULSE 66–110; RESP 18–19; TEMP 97.5–98.3; O2SAT 95–99
[2023-02-03] MEDS: ALBUTEROL SULFATE 0.083% 2.5 MG/3 ML VIAL.NEB INH SCH ×4 (00:02→19:38)
[2023-02-03] MEDS ORDERED: METOCLOPRAMIDE HCL 10 MG/2 ML VIAL ONE (05:21)
[2023-02-03] MEDS: NACL 0.9% 1,000 ML IV SCH ×2 (05:35→17:29)
[2023-02-03] MEDS: metroNIDAZOLE 500 mg/NS 100 ML IV SCH ×3 (05:36→23:08)
[2023-02-03] MEDS: METOCLOPRAMIDE HCL 10 MG/2 ML VIAL IVP SCH ×4 (05:40→17:38)
[2023-02-03] MEDS: GABAPENTIN 100 MG CAPSULE GT SCH ×3 (05:40→23:07)
[2023-02-03 06:52] LABS: ALBUMIN 1.9 g/dL (3.4-4.8); CALCIUM 8.1 mg/dL (8.4-11.0); CREATININE 0.69 mg/dL (0.55-1.30); PHOSPHORUS 3.7 mg/dL (2.7-4.5); POTASSIUM 3.2 mmol/L (3.5-5.1); TOTAL BILIRUBIN 1.2 mg/dL (0.0-1.0); TOTAL PROTEIN, SERUM 6.3 g/dL (6.4-8.3)
[2023-02-03 07:00] LABS: EOSINOPHILS % (AUTO) 0.1 % (0.0-4.0); NEUTROPHILS % (AUTO) 78.1 % (40.0-70.0)
[2023-02-03 07:45] LABS: BASOPHILS % (AUTO) 0.1 % (0.0-2.0); HEMATOCRIT 33.6 % (36-54); HEMOGLOBIN 11.5 g/dL (14.0-18.0); LYMPHOCYTES # (AUTO) 1.2 K/uL (1.0-5.5); LYMPHOCYTES % (AUTO) 11.5 % (20.5-51.5); MEAN CORPUSCULAR HEMOGLOBIN 31 pg (27-31); MEAN CORPUSCULAR HGB CONC 34 % (32-36); MEAN CORPUSCULAR VOLUME 90 fL (79.0-98.0); MONOCYTES # (AUTO) 1.1 K/uL (0.0-1.0); MONOCYTES % (AUTO) 10.2 % (1.7-9.3); NEUTROPHILS # (AUTO) 8.1 K/uL (1.8-7.7); PLATELET COUNT (AUTO) 117 K/uL (130-430); RED BLOOD CELL COUNT(AUTO) 3.73 MIL/uL (4.2-6.2); RED CELL DISTRIBUTION WIDTH 13.7 % (9.0-15.0); WHITE BLOOD COUNT (AUTO) 10.4 K/uL (4.8-10.8)
[2023-02-03] MEDS: POTASSIUM CHLORIDE 20 MEQ/PKT PACKET GT SCH ×2 (09:25→20:16)
[2023-02-03] MEDS: TAMSULOSIN HCL 0.4 MG CAP GT SCH ×2 (09:25→20:24)
[2023-02-03] MEDS: BACLOFEN 10 MG TABLET GT SCH ×3 (09:25→20:17)
[2023-02-03] MEDS: MULTIVITAMINS TAB 1 TABLET GT SCH (09:25)
[2023-02-03] MEDS: DOCUSATE SODIUM 100 MG/10 ML UDC GT SCH (09:25)
[2023-02-03] MEDS: LevETIRAcetam 500 MG/5 ML UDC ORAL LIQUID GT SCH ×2 (09:25→20:16)
[2023-02-03] MEDS: FLUDROCORTISONE ACETATE 0.1 MG TABLET( FLORINEF) PO SCH (09:26)
[2023-02-03] MEDS: CHOLECALCIFEROL (VITAMIN D3) 2,000 UNIT TABLET GT SCH (09:26)
[2023-02-03] MEDS: ASCORBIC ACID 500 MG TABLET GT SCH ×2 (09:26→20:16)
[2023-02-03] MEDS: CHLORHEXIDINE GLUC 0.12% 15 ML MOUTHWASH UDC MM SCH ×2 (09:27→20:20)
[2023-02-03] MEDS: HYDROCORTISONE SOD SUCC 100 MG/2 ML VIAL IVP SCH ×2 (09:27→20:19)
[2023-02-03] MEDS: BALSAM PERU/CASTOR OIL 56.7 GM OINT...G. TP SCH (09:28)
[2023-02-03] MEDS: MINERAL OIL/PETROLATUM,WHITE 3.5 GM EYE OINT. OP SCH ×2 (09:28→20:29)
[2023-02-03] MEDS: MIDODRINE HCL 5 MG TABLET (PROAMATINE) PO SCH ×3 (09:30→20:16)
[2023-02-03] MEDS ORDERED: FUROSEMIDE 40 MG/4 ML VIAL IVP ONE (12:00)
[2023-02-03] MEDS: FLUCONAZOLE IN NACL,ISO-OSM 200 ML IV SCH (12:31)
[2023-02-03] MEDS ORDERED: KCL 40 mEq in 100 mL (PREMIX) 100 ML IV ONE (13:00)
[2023-02-03] MEDS ORDERED: MAGNESIUM SULFATE 4 GM in D5W 250 ML IV ONE (15:00)
[2023-02-04] VITALS (36 sets, daily range): BP systolic 101–154; PULSE 52–105; RESP 18–29; TEMP 97.3–97.6; O2SAT 96–98
[2023-02-04] MEDS: ALBUTEROL SULFATE 0.083% 2.5 MG/3 ML VIAL.NEB INH SCH ×4 (00:01→19:51)
[2023-02-04] MEDS: METOCLOPRAMIDE HCL 10 MG/2 ML VIAL IVP SCH ×5 (00:51→23:32)
[2023-02-04] MEDS: NACL 0.9% 1,000 ML IV SCH ×2 (03:39→09:42)
[2023-02-04] MEDS ORDERED: METOCLOPRAMIDE HCL 10 MG/2 ML VIAL ONE (05:17)
[2023-02-04] MEDS: GABAPENTIN 100 MG CAPSULE GT SCH ×3 (05:26→21:29)
[2023-02-04 05:47] LABS: BASOPHILS # (AUTO) 0.1 K/uL (0.0-0.2); BASOPHILS % (AUTO) 0.4 % (0.0-2.0); EOSINOPHILS % (AUTO) 0.1 % (0.0-4.0); HEMOGLOBIN 12.4 g/dL (14.0-18.0); LYMPHOCYTES # (AUTO) 1.5 K/uL (1.0-5.5); LYMPHOCYTES % (AUTO) 11.5 % (20.5-51.5); MEAN CORPUSCULAR HEMOGLOBIN 31 pg (27-31); MEAN CORPUSCULAR HGB CONC 35 % (32-36); MEAN CORPUSCULAR VOLUME 90 fL (79.0-98.0); MONOCYTES # (AUTO) 1.5 K/uL (0.0-1.0); MONOCYTES % (AUTO) 11.4 % (1.7-9.3); NEUTROPHILS % (AUTO) 76.6 % (40.0-70.0); PLATELET COUNT (AUTO) 224 K/uL (130-430); RED BLOOD CELL COUNT(AUTO) 4.02 MIL/uL (4.2-6.2); RED CELL DISTRIBUTION WIDTH 13.9 % (9.0-15.0); WHITE BLOOD COUNT (AUTO) 13.1 K/uL (4.8-10.8)
[2023-02-04 06:00] LABS: CALCIUM 7.8 mg/dL (8.4-11.0); CREATININE 0.65 mg/dL (0.55-1.30)
[2023-02-04] MEDS: BALSAM PERU/CASTOR OIL 56.7 GM OINT...G. TP SCH (09:00)
[2023-02-04] MEDS: DOCUSATE SODIUM 100 MG/10 ML UDC GT SCH (09:14)
[2023-02-04] MEDS: CHOLECALCIFEROL (VITAMIN D3) 2,000 UNIT TABLET GT SCH (09:14)
[2023-02-04] MEDS: MULTIVITAMINS TAB 1 TABLET GT SCH (09:15)
[2023-02-04] MEDS: TAMSULOSIN HCL 0.4 MG CAP GT SCH ×2 (09:15→21:29)
[2023-02-04] MEDS: POTASSIUM CHLORIDE 20 MEQ/PKT PACKET GT SCH ×2 (09:15→21:29)
[2023-02-04] MEDS: ASCORBIC ACID 500 MG TABLET GT SCH ×2 (09:15→21:29)
[2023-02-04] MEDS: BACLOFEN 10 MG TABLET GT SCH ×3 (09:15→21:29)
[2023-02-04] MEDS: HYDROCORTISONE SOD SUCC 100 MG/2 ML VIAL IVP SCH ×2 (09:16→21:29)
[2023-02-04] MEDS: LevETIRAcetam 500 MG/5 ML UDC ORAL LIQUID GT SCH ×2 (09:17→21:28)
[2023-02-04] MEDS: MIDODRINE HCL 5 MG TABLET (PROAMATINE) PO SCH ×3 (09:17→21:29)
[2023-02-04] MEDS: CHLORHEXIDINE GLUC 0.12% 15 ML MOUTHWASH UDC MM SCH ×2 (09:17→21:29)
[2023-02-04] MEDS: MINERAL OIL/PETROLATUM,WHITE 3.5 GM EYE OINT. OP SCH ×2 (09:18→21:30)
[2023-02-04] MEDS: FLUDROCORTISONE ACETATE 0.1 MG TABLET( FLORINEF) PO SCH (09:21)
[2023-02-04] MEDS: NOREPINEPHRINE BITARTRATE 16 MG in NS 234 ML IV PRN (09:42)
[2023-02-04 10:10] LABS: POTASSIUM 2.3 mmol/L (3.5-5.1)
[2023-02-04] MEDS: FLUCONAZOLE IN NACL,ISO-OSM 200 ML IV SCH (11:53)
[2023-02-04] MEDS: POTASSIUM CHLORIDE 40 MEQ in NS 250 ML IV SCH ×2 (11:54→15:47)
[2023-02-04] MEDS: D5LR 1,000 ML IV SCH (18:03)
[2023-02-04] MEDS: DESMOPRESSIN 0.1 MG TAB (DDAVP) GT SCH (21:29)
[2023-02-05] VITALS (35 sets, daily range): BP systolic 94–157; PULSE 47–67; RESP 18; TEMP 97.2–98; O2SAT 96–98
[2023-02-05] MEDS: ALBUTEROL SULFATE 0.083% 2.5 MG/3 ML VIAL.NEB INH SCH ×4 (01:00→19:40)
[2023-02-05] MEDS: D5LR 1,000 ML IV SCH (04:08)
[2023-02-05] MEDS: GABAPENTIN 100 MG CAPSULE GT SCH ×3 (05:08→21:13)
[2023-02-05 05:43] LABS: BASOPHILS # (AUTO) 0.1 K/uL (0.0-0.2); BASOPHILS % (AUTO) 0.7 % (0.0-2.0); EOSINOPHILS # (AUTO) 0.2 K/uL (0.0-0.4); EOSINOPHILS % (AUTO) 1.7 % (0.0-4.0); HEMATOCRIT 36.2 % (36-54); HEMOGLOBIN 12.1 g/dL (14.0-18.0); LYMPHOCYTES # (AUTO) 1.6 K/uL (1.0-5.5); LYMPHOCYTES % (AUTO) 14.2 % (20.5-51.5); MEAN CORPUSCULAR HEMOGLOBIN 31 pg (27-31); MEAN CORPUSCULAR HGB CONC 34 % (32-36); MEAN CORPUSCULAR VOLUME 92 fL (79.0-98.0); MONOCYTES # (AUTO) 0.9 K/uL (0.0-1.0); NEUTROPHILS # (AUTO) 8.4 K/uL (1.8-7.7); NEUTROPHILS % (AUTO) 75.4 % (40.0-70.0); PLATELET COUNT (AUTO) 307 K/uL (130-430); RED BLOOD CELL COUNT(AUTO) 3.92 MIL/uL (4.2-6.2); RED CELL DISTRIBUTION WIDTH 13.9 % (9.0-15.0); WHITE BLOOD COUNT (AUTO) 11.1 K/uL (4.8-10.8)
[2023-02-05 06:10] LABS: CALCIUM 8.6 mg/dL (8.4-11.0); CREATININE 0.65 mg/dL (0.55-1.30); PHOSPHORUS 2.8 mg/dL (2.7-4.5); POTASSIUM 3.3 mmol/L (3.5-5.1); TOTAL BILIRUBIN 0.8 mg/dL (0.0-1.0); TOTAL PROTEIN, SERUM 7.1 g/dL (6.4-8.3)
[2023-02-05] MEDS: METOCLOPRAMIDE HCL 10 MG/2 ML VIAL IVP SCH ×3 (06:59→17:00)
[2023-02-05] MEDS ORDERED: POTASSIUM CHLORIDE 40 MEQ in NS 250 ML IV ONE (08:00)
[2023-02-05] MEDS: CHOLECALCIFEROL (VITAMIN D3) 2,000 UNIT TABLET GT SCH (11:14)
[2023-02-05] MEDS: HYDROCORTISONE SOD SUCC 100 MG/2 ML VIAL IVP SCH ×2 (11:15→20:56)
[2023-02-05] MEDS: TAMSULOSIN HCL 0.4 MG CAP GT SCH ×2 (11:19→20:56)
[2023-02-05] MEDS: FLUDROCORTISONE ACETATE 0.1 MG TABLET( FLORINEF) PO SCH (11:19)
[2023-02-05] MEDS: MULTIVITAMINS TAB 1 TABLET GT SCH (11:19)
[2023-02-05] MEDS: POTASSIUM CHLORIDE 20 MEQ/PKT PACKET GT SCH ×2 (11:19→20:56)
[2023-02-05] MEDS: ASCORBIC ACID 500 MG TABLET GT SCH ×2 (11:19→20:56)
[2023-02-05] MEDS: BACLOFEN 10 MG TABLET GT SCH ×3 (11:19→20:56)
[2023-02-05] MEDS: DOCUSATE SODIUM 100 MG/10 ML UDC GT SCH (11:20)
[2023-02-05] MEDS: MIDODRINE HCL 5 MG TABLET (PROAMATINE) PO SCH ×3 (11:20→21:06)
[2023-02-05] MEDS: CHLORHEXIDINE GLUC 0.12% 15 ML MOUTHWASH UDC MM SCH ×2 (11:20→21:03)
[2023-02-05] MEDS: FLUCONAZOLE IN NACL,ISO-OSM 200 ML IV SCH (11:22)
[2023-02-05] MEDS: LevETIRAcetam 500 MG/5 ML UDC ORAL LIQUID GT SCH ×2 (11:22→21:03)
[2023-02-05] MEDS: DESMOPRESSIN 0.1 MG TAB (DDAVP) GT SCH ×2 (11:34→21:05)
[2023-02-05 16:43] LABS: CALCIUM 8.5 mg/dL (8.4-11.0); CREATININE 0.6 mg/dL (0.55-1.30)
[2023-02-05] MEDS: D5W 1,000 ML IV SCH (16:47)
[2023-02-05 23:25] LABS: CALCIUM 7.9 mg/dL (8.4-11.0); CREATININE 0.54 mg/dL (0.55-1.30); POTASSIUM 3.6 mmol/L (3.5-5.1)
[2023-02-06] VITALS (32 sets, daily range): BP systolic 63–146; PULSE 42–68; RESP 18–20; TEMP 96.8–98.6; O2SAT 96–99
[2023-02-06] MEDS: METOCLOPRAMIDE HCL 10 MG/2 ML VIAL IVP SCH ×5 (00:24→23:32)
[2023-02-06] MEDS: D5W 1,000 ML IV SCH ×4 (01:25→20:59)
[2023-02-06] MEDS: ALBUTEROL SULFATE 0.083% 2.5 MG/3 ML VIAL.NEB INH SCH ×4 (02:50→19:28)
[2023-02-06] MEDS: GABAPENTIN 100 MG CAPSULE GT SCH ×3 (05:12→22:09)
[2023-02-06 05:44] LABS: BASOPHILS % (AUTO) 0.5 % (0.0-2.0); EOSINOPHILS % (AUTO) 0.1 % (0.0-4.0); HEMATOCRIT 32.8 % (36-54); HEMOGLOBIN 11.2 g/dL (14.0-18.0); LYMPHOCYTES % (AUTO) 25.3 % (20.5-51.5); MEAN CORPUSCULAR HEMOGLOBIN 32 pg (27-31); MEAN CORPUSCULAR HGB CONC 34 % (32-36); MEAN CORPUSCULAR VOLUME 93 fL (79.0-98.0); MONOCYTES # (AUTO) 0.6 K/uL (0.0-1.0); MONOCYTES % (AUTO) 7.2 % (1.7-9.3); NEUTROPHILS # (AUTO) 5.3 K/uL (1.8-7.7); NEUTROPHILS % (AUTO) 66.9 % (40.0-70.0); PLATELET COUNT (AUTO) 288 K/uL (130-430); RED BLOOD CELL COUNT(AUTO) 3.53 MIL/uL (4.2-6.2); RED CELL DISTRIBUTION WIDTH 14.4 % (9.0-15.0); WHITE BLOOD COUNT (AUTO) 7.9 K/uL (4.8-10.8)
[2023-02-06 06:18] LABS: PHOSPHORUS 2.8 mg/dL (2.7-4.5)
[2023-02-06] MEDS ORDERED: THEOPHYLLINE ANHYDROUS 200 MG TAB.SR.12H PO ONE (06:45)
[2023-02-06] MEDS ORDERED: THEOPHYLLINE ANHYDROUS 80 MG/15 ML UDC GT ONE (07:00)
[2023-02-06] MEDS: DOCUSATE SODIUM 100 MG/10 ML UDC GT SCH (10:13)
[2023-02-06] MEDS: BACLOFEN 10 MG TABLET GT SCH ×3 (10:13→20:57)
[2023-02-06] MEDS: CHOLECALCIFEROL (VITAMIN D3) 2,000 UNIT TABLET GT SCH (10:13)
[2023-02-06] MEDS: POTASSIUM CHLORIDE 20 MEQ/PKT PACKET GT SCH ×2 (10:13→20:57)
[2023-02-06] MEDS: MULTIVITAMINS TAB 1 TABLET GT SCH (10:14)
[2023-02-06] MEDS: FLUDROCORTISONE ACETATE 0.1 MG TABLET( FLORINEF) PO SCH (10:14)
[2023-02-06] MEDS: ASCORBIC ACID 500 MG TABLET GT SCH ×2 (10:14→20:58)
[2023-02-06] MEDS: TAMSULOSIN HCL 0.4 MG CAP GT SCH ×2 (10:14→20:57)
[2023-02-06] MEDS: DESMOPRESSIN 0.1 MG TAB (DDAVP) GT SCH ×2 (10:14→20:57)
[2023-02-06] MEDS: LevETIRAcetam 500 MG/5 ML UDC ORAL LIQUID GT SCH ×2 (10:15→20:58)
[2023-02-06] MEDS: HYDROCORTISONE SOD SUCC 100 MG/2 ML VIAL IVP SCH ×2 (10:18→20:58)
[2023-02-06] MEDS: CHLORHEXIDINE GLUC 0.12% 15 ML MOUTHWASH UDC MM SCH ×2 (10:18→20:58)
[2023-02-06] MEDS: MIDODRINE HCL 5 MG TABLET (PROAMATINE) PO SCH ×3 (10:19→20:58)
[2023-02-06] MEDS: MINERAL OIL/PETROLATUM,WHITE 3.5 GM EYE OINT. OP SCH ×2 (10:29→21:00)
[2023-02-06] MEDS: BALSAM PERU/CASTOR OIL 56.7 GM OINT...G. TP SCH (10:29)
[2023-02-06] MEDS: FLUCONAZOLE IN NACL,ISO-OSM 200 ML IV SCH (12:35)
[2023-02-06] MEDS ORDERED: THEOPHYLLINE ANHYDROUS 200 MG TAB.SR.12H PO SCH (14:00)
[2023-02-06] MEDS: THEOPHYLLINE ANHYDROUS 80 MG/15 ML UDC GT SCH ×2 (14:13→22:09)
[2023-02-06 15:57] LABS: ALBUMIN 1.9 g/dL (3.4-4.8); CALCIUM 8.6 mg/dL (8.4-11.0); CREATININE 0.65 mg/dL (0.55-1.30); POTASSIUM 3.7 mmol/L (3.5-5.1); TOTAL PROTEIN, SERUM 6.5 g/dL (6.4-8.3)
[2023-02-06] MEDS ORDERED: ATROPINE SULFATE 0.4 MG/ML VIAL IVP PRN (18:00)
[2023-02-07] VITALS (34 sets, daily range): BP systolic 90–154; PULSE 38–99; RESP 18; TEMP 98.2–98.7; O2SAT 9–99
[2023-02-07] MEDS: ALBUTEROL SULFATE 0.083% 2.5 MG/3 ML VIAL.NEB INH SCH ×3 (00:12→19:26)
[2023-02-07] MEDS: D5W 1,000 ML IV SCH ×4 (04:06→23:56)
[2023-02-07 06:10] LABS: BASOPHILS # (AUTO) 0.1 K/uL (0.0-0.2); BASOPHILS % (AUTO) 0.8 % (0.0-2.0); EOSINOPHILS % (AUTO) 0.1 % (0.0-4.0); HEMATOCRIT 31.2 % (36-54); HEMOGLOBIN 10.6 g/dL (14.0-18.0); LYMPHOCYTES % (AUTO) 20.6 % (20.5-51.5); MEAN CORPUSCULAR HEMOGLOBIN 32 pg (27-31); MEAN CORPUSCULAR HGB CONC 34 % (32-36); MEAN CORPUSCULAR VOLUME 93 fL (79.0-98.0); MONOCYTES # (AUTO) 0.3 K/uL (0.0-1.0); MONOCYTES % (AUTO) 3.5 % (1.7-9.3); NEUTROPHILS # (AUTO) 7.3 K/uL (1.8-7.7); PLATELET COUNT (AUTO) 358 K/uL (130-430); RED BLOOD CELL COUNT(AUTO) 3.35 MIL/uL (4.2-6.2); RED CELL DISTRIBUTION WIDTH 14.2 % (9.0-15.0); WHITE BLOOD COUNT (AUTO) 9.8 K/uL (4.8-10.8)
[2023-02-07 06:31] LABS: ALBUMIN 1.7 g/dL (3.4-4.8); CALCIUM 8.1 mg/dL (8.4-11.0); CREATININE 0.51 mg/dL (0.55-1.30); POTASSIUM 3.2 mmol/L (3.5-5.1); TOTAL BILIRUBIN 0.6 mg/dL (0.0-1.0); TOTAL PROTEIN, SERUM 6.2 g/dL (6.4-8.3)
[2023-02-07] MEDS: THEOPHYLLINE ANHYDROUS 80 MG/15 ML UDC GT SCH ×3 (07:00→23:07)
[2023-02-07] MEDS: METOCLOPRAMIDE HCL 10 MG/2 ML VIAL IVP SCH ×4 (07:01→23:56)
[2023-02-07] MEDS: GABAPENTIN 100 MG CAPSULE GT SCH ×3 (07:01→23:07)
[2023-02-07] MEDS: POTASSIUM CHLORIDE 20 MEQ/PKT PACKET GT SCH ×2 (09:05→20:03)
[2023-02-07] MEDS: TAMSULOSIN HCL 0.4 MG CAP GT SCH ×2 (09:05→20:03)
[2023-02-07] MEDS: BACLOFEN 10 MG TABLET GT SCH ×3 (09:05→20:03)
[2023-02-07] MEDS: ASCORBIC ACID 500 MG TABLET GT SCH ×2 (09:05→20:04)
[2023-02-07] MEDS: CHOLECALCIFEROL (VITAMIN D3) 2,000 UNIT TABLET GT SCH (09:05)
[2023-02-07] MEDS: FLUDROCORTISONE ACETATE 0.1 MG TABLET( FLORINEF) PO SCH (09:05)
[2023-02-07] MEDS: MULTIVITAMINS TAB 1 TABLET GT SCH (09:05)
[2023-02-07] MEDS: HYDROCORTISONE SOD SUCC 100 MG/2 ML VIAL IVP SCH ×2 (09:06→20:04)
[2023-02-07] MEDS: DESMOPRESSIN 0.1 MG TAB (DDAVP) GT SCH ×2 (09:06→20:03)
[2023-02-07] MEDS: LevETIRAcetam 500 MG/5 ML UDC ORAL LIQUID GT SCH ×2 (09:06→20:03)
[2023-02-07] MEDS: MINERAL OIL/PETROLATUM,WHITE 3.5 GM EYE OINT. OP SCH ×2 (09:07→20:04)
[2023-02-07] MEDS: BALSAM PERU/CASTOR OIL 56.7 GM OINT...G. TP SCH (09:08)
[2023-02-07] MEDS: CHLORHEXIDINE GLUC 0.12% 15 ML MOUTHWASH UDC MM SCH ×2 (09:08→20:03)
[2023-02-07] MEDS: DOCUSATE SODIUM 100 MG/10 ML UDC GT SCH (09:09)
[2023-02-07] MEDS: MIDODRINE HCL 5 MG TABLET (PROAMATINE) PO SCH ×3 (10:11→20:03)
[2023-02-07] MEDS ORDERED: DOPamine PREMIX 250 ML IV PRN ×2 (12:15→15:45)
[2023-02-07] MEDS: FLUCONAZOLE IN NACL,ISO-OSM 200 ML IV SCH (12:30)
[2023-02-07] MEDS: POTASSIUM CHLORIDE 20 MEQ/PKT PACKET PO PRN (14:26)
[2023-02-07] MEDS ORDERED: NOREPINEPHRINE 4 MG/4 ML VIAL IV ONE (19:46)
[2023-02-07] MEDS: HEPARIN SODIUM,PORCINE 5,000 UNITS/ML VIAL SUBCUT SCH (20:44)
[2023-02-08] VITALS (35 sets, daily range): BP systolic 91–149; PULSE 46–86; RESP 18; TEMP 97.4–98.6; O2SAT 94–98
[2023-02-08] MEDS: ALBUTEROL SULFATE 0.083% 2.5 MG/3 ML VIAL.NEB INH SCH ×4 (01:10→19:21)
[2023-02-08] MEDS: THEOPHYLLINE ANHYDROUS 80 MG/15 ML UDC GT SCH ×3 (05:03→21:04)
[2023-02-08] MEDS: METOCLOPRAMIDE HCL 10 MG/2 ML VIAL IVP SCH ×3 (05:03→17:23)
[2023-02-08] MEDS: GABAPENTIN 100 MG CAPSULE GT SCH ×3 (05:03→21:03)
[2023-02-08] MEDS: D5W 1,000 ML IV SCH ×3 (06:13→20:06)
[2023-02-08] MEDS: NOREPINEPHRINE BITARTRATE 16 MG in NS 234 ML IV PRN ×2 (06:13→07:00)
[2023-02-08 06:27] LABS: BASOPHILS % (AUTO) 0.4 % (0.0-2.0); EOSINOPHILS % (AUTO) 0.1 % (0.0-4.0); HEMATOCRIT 36.9 % (36-54); HEMOGLOBIN 12.3 g/dL (14.0-18.0); LYMPHOCYTES # (AUTO) 1.2 K/uL (1.0-5.5); LYMPHOCYTES % (AUTO) 11.3 % (20.5-51.5); MEAN CORPUSCULAR HEMOGLOBIN 31 pg (27-31); MEAN CORPUSCULAR HGB CONC 33 % (32-36); MEAN CORPUSCULAR VOLUME 93 fL (79.0-98.0); MONOCYTES # (AUTO) 0.5 K/uL (0.0-1.0); MONOCYTES % (AUTO) 5.2 % (1.7-9.3); NEUTROPHILS # (AUTO) 8.7 K/uL (1.8-7.7); PLATELET COUNT (AUTO) 435 K/uL (130-430); RED BLOOD CELL COUNT(AUTO) 3.97 MIL/uL (4.2-6.2); RED CELL DISTRIBUTION WIDTH 13.9 % (9.0-15.0); WHITE BLOOD COUNT (AUTO) 10.5 K/uL (4.8-10.8)
[2023-02-08 07:00] LABS: ALBUMIN 1.9 g/dL (3.4-4.8); CALCIUM 8.3 mg/dL (8.4-11.0); CREATININE 0.5 mg/dL (0.55-1.30); POTASSIUM 3.3 mmol/L (3.5-5.1); TOTAL BILIRUBIN 0.5 mg/dL (0.0-1.0); TOTAL PROTEIN, SERUM 6.7 g/dL (6.4-8.3)
[2023-02-08] MEDS: LevETIRAcetam 500 MG/5 ML UDC ORAL LIQUID GT SCH ×2 (09:09→20:59)
[2023-02-08] MEDS: DOCUSATE SODIUM 100 MG/10 ML UDC GT SCH (09:10)
[2023-02-08] MEDS: HYDROCORTISONE SOD SUCC 100 MG/2 ML VIAL IVP SCH ×2 (09:14→20:59)
[2023-02-08] MEDS: BACLOFEN 10 MG TABLET GT SCH ×3 (09:14→20:59)
[2023-02-08] MEDS: MIDODRINE HCL 5 MG TABLET (PROAMATINE) PO SCH ×3 (09:14→21:00)
[2023-02-08] MEDS: CHOLECALCIFEROL (VITAMIN D3) 2,000 UNIT TABLET GT SCH (09:14)
[2023-02-08] MEDS: MULTIVITAMINS TAB 1 TABLET GT SCH (09:15)
[2023-02-08] MEDS: POTASSIUM CHLORIDE 20 MEQ/PKT PACKET GT SCH ×2 (09:15→20:59)
[2023-02-08] MEDS: FLUDROCORTISONE ACETATE 0.1 MG TABLET( FLORINEF) PO SCH (09:15)
[2023-02-08] MEDS: ASCORBIC ACID 500 MG TABLET GT SCH ×2 (09:15→20:59)
[2023-02-08] MEDS: BALSAM PERU/CASTOR OIL 56.7 GM OINT...G. TP SCH (09:17)
[2023-02-08] MEDS: MINERAL OIL/PETROLATUM,WHITE 3.5 GM EYE OINT. OP SCH ×2 (09:17→21:06)
[2023-02-08] MEDS: HEPARIN SODIUM,PORCINE 5,000 UNITS/ML VIAL SUBCUT SCH ×2 (09:19→21:02)
[2023-02-08] MEDS: CHLORHEXIDINE GLUC 0.12% 15 ML MOUTHWASH UDC MM SCH ×2 (09:20→20:59)
[2023-02-08] MEDS ORDERED: MANNITOL 25% 12.5GM/50 ML VIAL IVP ONE (12:45)
[2023-02-08] MEDS ORDERED: MANNITOL 25%(12.5gm),50ML VIAL 50 ML ONE (14:09)
[2023-02-08] MEDS: DESMOPRESSIN ACETATE 4 MCG/ML AMP IVP SCH ×2 (14:19→21:04)
[2023-02-08] MEDS: FLUCONAZOLE IN NACL,ISO-OSM 200 ML IV SCH (14:22)
[2023-02-08] MEDS: TAMSULOSIN HCL 0.4 MG CAP GT SCH ×2 (14:27→20:59)
[2023-02-09] VITALS (36 sets, daily range): BP systolic 77–177; PULSE 53–109; RESP 16–18; TEMP 96.5–98.2; O2SAT 95–98
[2023-02-09] MEDS: METOCLOPRAMIDE HCL 10 MG/2 ML VIAL IVP SCH ×4 (00:35→18:05)
[2023-02-09] MEDS: ALBUTEROL SULFATE 0.083% 2.5 MG/3 ML VIAL.NEB INH SCH ×4 (01:00→19:45)
[2023-02-09] MEDS: D5W 1,000 ML IV SCH ×2 (02:46→08:55)
[2023-02-09 06:23] LABS: HEMATOCRIT 35.2 % (36-54); HEMOGLOBIN 11.9 g/dL (14.0-18.0); MEAN CORPUSCULAR HEMOGLOBIN 31 pg (27-31); MEAN CORPUSCULAR HGB CONC 34 % (32-36); MEAN CORPUSCULAR VOLUME 93 fL (79.0-98.0); PLATELET COUNT (AUTO) 505 K/uL (130-430); RED BLOOD CELL COUNT(AUTO) 3.81 MIL/uL (4.2-6.2); RED CELL DISTRIBUTION WIDTH 14.4 % (9.0-15.0); WHITE BLOOD COUNT (AUTO) 22.2 K/uL (4.8-10.8)
[2023-02-09 06:39] LABS: ALBUMIN 1.9 g/dL (3.4-4.8); CALCIUM 7.8 mg/dL (8.4-11.0); CREATININE 0.53 mg/dL (0.55-1.30); POTASSIUM 3.1 mmol/L (3.5-5.1); TOTAL BILIRUBIN 0.6 mg/dL (0.0-1.0); TOTAL PROTEIN, SERUM 6.7 g/dL (6.4-8.3)
[2023-02-09] MEDS: GABAPENTIN 100 MG CAPSULE GT SCH ×3 (06:48→21:20)
[2023-02-09] MEDS: THEOPHYLLINE ANHYDROUS 80 MG/15 ML UDC GT SCH ×3 (06:48→20:34)
[2023-02-09 08:38] LABS: BASOPHILS % (MANUAL) 0 % (0-2); BLASTS, MANUAL % 0 % (0-0); EOSINOPHILS % (MANUAL) 0 % (0-7); LYMPHOCYTES % (MANUAL) 7 % (20-46); METAMYELOCYTES % 0 % (0-0); MONOCYTES % (MANUAL) 3 % (0-11); MYELOCYTES % 0 % (0-0); OTHER CELLS,MANUAL % 0 (0-0); PROMYELOCYTES % 0 % (0-0)
[2023-02-09 08:39] LABS: PLATELET ESTIMATE ADEQUATE (ADEQUATE)
[2023-02-09] MEDS: LevETIRAcetam 500 MG/5 ML UDC ORAL LIQUID GT SCH ×2 (08:51→21:19)
[2023-02-09] MEDS: HYDROCORTISONE SOD SUCC 100 MG/2 ML VIAL IVP SCH ×2 (08:51→20:34)
[2023-02-09] MEDS: TAMSULOSIN HCL 0.4 MG CAP GT SCH ×2 (08:51→20:34)
[2023-02-09] MEDS: CHOLECALCIFEROL (VITAMIN D3) 2,000 UNIT TABLET GT SCH (08:51)
[2023-02-09] MEDS: DOCUSATE SODIUM 100 MG/10 ML UDC GT SCH (08:51)
[2023-02-09] MEDS: CHLORHEXIDINE GLUC 0.12% 15 ML MOUTHWASH UDC MM SCH ×2 (08:51→20:35)
[2023-02-09] MEDS: FLUDROCORTISONE ACETATE 0.1 MG TABLET( FLORINEF) PO SCH (08:52)
[2023-02-09] MEDS: DESMOPRESSIN ACETATE 4 MCG/ML AMP IVP SCH ×2 (08:52→21:19)
[2023-02-09] MEDS: BACLOFEN 10 MG TABLET GT SCH ×3 (08:52→20:34)
[2023-02-09] MEDS: MULTIVITAMINS TAB 1 TABLET GT SCH (08:52)
[2023-02-09] MEDS: ASCORBIC ACID 500 MG TABLET GT SCH ×2 (08:52→20:34)
[2023-02-09] MEDS: MIDODRINE HCL 5 MG TABLET (PROAMATINE) PO SCH ×3 (08:53→20:34)
[2023-02-09] MEDS: POTASSIUM CHLORIDE 20 MEQ/PKT PACKET GT SCH ×2 (08:54→20:34)
[2023-02-09] MEDS: POTASSIUM CHLORIDE 20 MEQ/PKT PACKET PO PRN (08:54)
[2023-02-09] MEDS: HEPARIN SODIUM,PORCINE 5,000 UNITS/ML VIAL SUBCUT SCH ×2 (08:54→20:37)
[2023-02-09] MEDS: BALSAM PERU/CASTOR OIL 56.7 GM OINT...G. TP SCH (08:55)
[2023-02-09] MEDS: MINERAL OIL/PETROLATUM,WHITE 3.5 GM EYE OINT. OP SCH ×2 (08:56→20:35)
[2023-02-09] MEDS: NOREPINEPHRINE BITARTRATE 16 MG in NS 234 ML IV PRN (11:03)
[2023-02-09] MEDS: FLUCONAZOLE IN NACL,ISO-OSM 200 ML IV SCH (12:18)
[2023-02-09] MEDS ORDERED: DEXTROSE 50% JECT 50 ML DISP.SYRIN IVP PRN (18:00)
[2023-02-09] MEDS: CEFEPIME 2 GM in D5W 100 ML IV SCH (18:05)
[2023-02-09] MEDS ORDERED: LevETIRAcetam 500 MG/5 ML UDC ORAL LIQUID ONE ×2 (20:54→21:01)
[2023-02-09] MEDS ORDERED: DESMOPRESSIN ACETATE 4 MCG/ML AMP ONE (20:58)
[2023-02-09] MEDS ORDERED: *TPN PER PHARMACY XX SCH (21:00)
[2023-02-10] VITALS (33 sets, daily range): BP systolic 86–169; PULSE 48–102; RESP 18; TEMP 95.4–97.8; O2SAT 93–100
[2023-02-10] MEDS: METOCLOPRAMIDE HCL 10 MG/2 ML VIAL IVP SCH ×5 (00:04→23:54)
[2023-02-10] MEDS: D5W 1,000 ML IV SCH ×3 (00:05→23:57)
[2023-02-10] MEDS: ALBUTEROL SULFATE 0.083% 2.5 MG/3 ML VIAL.NEB INH SCH ×3 (01:00→13:31)
[2023-02-10] MEDS: GABAPENTIN 100 MG CAPSULE GT SCH ×3 (05:52→21:19)
[2023-02-10] MEDS: THEOPHYLLINE ANHYDROUS 80 MG/15 ML UDC GT SCH ×3 (05:52→21:17)
[2023-02-10 07:08] LABS: BASOPHILS # (AUTO) 0.1 K/uL (0.0-0.2); BASOPHILS % (AUTO) 0.6 % (0.0-2.0); EOSINOPHILS % (AUTO) 0.1 % (0.0-4.0); HEMOGLOBIN 10.5 g/dL (14.0-18.0); LYMPHOCYTES # (AUTO) 1.8 K/uL (1.0-5.5); LYMPHOCYTES % (AUTO) 14.6 % (20.5-51.5); MEAN CORPUSCULAR HEMOGLOBIN 31 pg (27-31); MEAN CORPUSCULAR HGB CONC 34 % (32-36); MEAN CORPUSCULAR VOLUME 92 fL (79.0-98.0); MONOCYTES # (AUTO) 0.4 K/uL (0.0-1.0); MONOCYTES % (AUTO) 3.4 % (1.7-9.3); NEUTROPHILS # (AUTO) 9.9 K/uL (1.8-7.7); NEUTROPHILS % (AUTO) 81.3 % (40.0-70.0); PLATELET COUNT (AUTO) 472 K/uL (130-430); RED BLOOD CELL COUNT(AUTO) 3.37 MIL/uL (4.2-6.2); RED CELL DISTRIBUTION WIDTH 13.9 % (9.0-15.0); WHITE BLOOD COUNT (AUTO) 12.2 K/uL (4.8-10.8)
[2023-02-10 07:49] LABS: ALBUMIN 1.8 g/dL (3.4-4.8); CREATININE 0.47 mg/dL (0.55-1.30); TOTAL BILIRUBIN 0.8 mg/dL (0.0-1.0); TOTAL PROTEIN, SERUM 6.3 g/dL (6.4-8.3)
[2023-02-10 07:54] LABS: POTASSIUM 2.8 mmol/L (3.5-5.1)
[2023-02-10] MEDS: HEPARIN SODIUM,PORCINE 5,000 UNITS/ML VIAL SUBCUT SCH ×2 (08:57→21:20)
[2023-02-10] MEDS: HYDROCORTISONE SOD SUCC 100 MG/2 ML VIAL IVP SCH ×2 (08:57→21:18)
[2023-02-10] MEDS: DESMOPRESSIN ACETATE 4 MCG/ML AMP IVP SCH ×2 (08:58→21:20)
[2023-02-10] MEDS: MULTIVITAMINS TAB 1 TABLET GT SCH (08:59)
[2023-02-10] MEDS: LevETIRAcetam 500 MG/5 ML UDC ORAL LIQUID GT SCH ×2 (08:59→21:18)
[2023-02-10] MEDS: MIDODRINE HCL 5 MG TABLET (PROAMATINE) PO SCH ×3 (08:59→21:19)
[2023-02-10] MEDS: FLUDROCORTISONE ACETATE 0.1 MG TABLET( FLORINEF) PO SCH (09:00)
[2023-02-10] MEDS: DOCUSATE SODIUM 100 MG/10 ML UDC GT SCH (09:00)
[2023-02-10] MEDS: BACLOFEN 10 MG TABLET GT SCH ×3 (09:00→21:19)
[2023-02-10] MEDS: ASCORBIC ACID 500 MG TABLET GT SCH ×2 (09:01→21:19)
[2023-02-10] MEDS: POTASSIUM CHLORIDE 20 MEQ/PKT PACKET GT SCH ×2 (09:01→21:20)
[2023-02-10] MEDS: MINERAL OIL/PETROLATUM,WHITE 3.5 GM EYE OINT. OP SCH ×2 (09:01→21:22)
[2023-02-10] MEDS: TAMSULOSIN HCL 0.4 MG CAP GT SCH ×2 (09:01→21:19)
[2023-02-10] MEDS: POTASSIUM CHLORIDE 20 MEQ/PKT PACKET PO PRN (09:01)
[2023-02-10] MEDS: CHOLECALCIFEROL (VITAMIN D3) 2,000 UNIT TABLET GT SCH (09:01)
[2023-02-10] MEDS: BALSAM PERU/CASTOR OIL 56.7 GM OINT...G. TP SCH (09:02)
[2023-02-10] MEDS: CHLORHEXIDINE GLUC 0.12% 15 ML MOUTHWASH UDC MM SCH ×2 (09:02→21:18)
[2023-02-10] MEDS: FLUCONAZOLE IN NACL,ISO-OSM 200 ML IV SCH (12:27)
[2023-02-10] MEDS: CEFEPIME 2 GM in D5W 100 ML IV SCH (16:03)
[2023-02-10] MEDS ORDERED: [UNRECOGNIZED DRUG - OTHER] IV SCH ×9 (21:00)
[2023-02-10] MEDS ORDERED: SODIUM CHLORIDE IV SCH ×9 (21:00)
[2023-02-10] MEDS ORDERED: POTASSIUM CHLORIDE IV SCH ×9 (21:00)
[2023-02-10] MEDS ORDERED: K PHOS IV SCH ×9 (21:00)
[2023-02-10] MEDS ORDERED: TPN CENTRAL IV SCH ×9 (21:00)
[2023-02-10] MEDS ORDERED: *TPN PER PHARMACY XX SCH (21:00)
[2023-02-10] MEDS: INSULIN REGULAR, HUMAN 100 UNITS/ML, 3 ML VIAL (humuLIN R) SUBCUT PRN (23:56)
[2023-02-11] VITALS (36 sets, daily range): BP systolic 76–155; PULSE 56–90; RESP 18; TEMP 95.4–99.2; O2SAT 93–99
[2023-02-11] MEDS: ALBUTEROL SULFATE 0.083% 2.5 MG/3 ML VIAL.NEB INH SCH ×5 (01:11→19:17)
[2023-02-11 05:13] LABS: BASOPHILS % (AUTO) 0.1 % (0.0-2.0); EOSINOPHILS % (AUTO) 0.1 % (0.0-4.0); HEMATOCRIT 34.1 % (36-54); HEMOGLOBIN 11.5 g/dL (14.0-18.0); LYMPHOCYTES # (AUTO) 0.9 K/uL (1.0-5.5); LYMPHOCYTES % (AUTO) 6.5 % (20.5-51.5); MEAN CORPUSCULAR HEMOGLOBIN 31 pg (27-31); MEAN CORPUSCULAR HGB CONC 34 % (32-36); MEAN CORPUSCULAR VOLUME 91 fL (79.0-98.0); MONOCYTES # (AUTO) 0.4 K/uL (0.0-1.0); MONOCYTES % (AUTO) 3.3 % (1.7-9.3); NEUTROPHILS # (AUTO) 12.3 K/uL (1.8-7.7); PLATELET COUNT (AUTO) 602 K/uL (130-430); RED BLOOD CELL COUNT(AUTO) 3.75 MIL/uL (4.2-6.2); RED CELL DISTRIBUTION WIDTH 13.4 % (9.0-15.0); WHITE BLOOD COUNT (AUTO) 13.7 K/uL (4.8-10.8)
[2023-02-11] MEDS: THEOPHYLLINE ANHYDROUS 80 MG/15 ML UDC GT SCH ×3 (05:17→20:50)
[2023-02-11] MEDS: GABAPENTIN 100 MG CAPSULE GT SCH ×3 (05:17→20:50)
[2023-02-11] MEDS: D5W 1,000 ML IV SCH ×2 (05:18→20:26)
[2023-02-11] MEDS: METOCLOPRAMIDE HCL 10 MG/2 ML VIAL IVP SCH ×4 (05:18→23:52)
[2023-02-11] MEDS: INSULIN REGULAR, HUMAN 100 UNITS/ML, 3 ML VIAL (humuLIN R) SUBCUT PRN (05:23)
[2023-02-11 05:24] LABS: CALCIUM 8.1 mg/dL (8.4-11.0); CREATININE 0.5 mg/dL (0.55-1.30)
[2023-02-11 05:46] LABS: POTASSIUM 2.3 mmol/L (3.5-5.1)
[2023-02-11] MEDS ORDERED: KCL 40 mEq in 100 mL (PREMIX) 100 ML IV ONE ×2 (06:30→10:30)
[2023-02-11] MEDS: POTASSIUM CHLORIDE 20 MEQ/PKT PACKET GT SCH ×2 (09:25→20:47)
[2023-02-11] MEDS: DOCUSATE SODIUM 100 MG/10 ML UDC GT SCH (09:26)
[2023-02-11] MEDS: ASCORBIC ACID 500 MG TABLET GT SCH ×2 (09:26→20:48)
[2023-02-11] MEDS: CHOLECALCIFEROL (VITAMIN D3) 2,000 UNIT TABLET GT SCH (09:26)
[2023-02-11] MEDS: TAMSULOSIN HCL 0.4 MG CAP GT SCH ×2 (09:26→20:46)
[2023-02-11] MEDS: FLUDROCORTISONE ACETATE 0.1 MG TABLET( FLORINEF) PO SCH (09:26)
[2023-02-11] MEDS: HYDROCORTISONE SOD SUCC 100 MG/2 ML VIAL IVP SCH ×2 (09:27→20:49)
[2023-02-11] MEDS: MULTIVITAMINS TAB 1 TABLET GT SCH (09:27)
[2023-02-11] MEDS: BACLOFEN 10 MG TABLET GT SCH ×3 (09:27→20:46)
[2023-02-11] MEDS: MIDODRINE HCL 5 MG TABLET (PROAMATINE) PO SCH ×3 (09:28→20:50)
[2023-02-11] MEDS: CHLORHEXIDINE GLUC 0.12% 15 ML MOUTHWASH UDC MM SCH ×2 (09:28→20:49)
[2023-02-11] MEDS: LevETIRAcetam 500 MG/5 ML UDC ORAL LIQUID GT SCH ×2 (09:28→20:48)
[2023-02-11] MEDS: HEPARIN SODIUM,PORCINE 5,000 UNITS/ML VIAL SUBCUT SCH ×2 (09:36→21:00)
[2023-02-11] MEDS: DESMOPRESSIN ACETATE 4 MCG/ML AMP IVP SCH ×2 (09:37→21:06)
[2023-02-11] MEDS: MINERAL OIL/PETROLATUM,WHITE 3.5 GM EYE OINT. OP SCH ×2 (09:54→20:49)
[2023-02-11] MEDS: BALSAM PERU/CASTOR OIL 56.7 GM OINT...G. TP SCH (09:54)
[2023-02-11 10:22] LABS: PHOSPHORUS 2.7 mg/dL (2.7-4.5)
[2023-02-11] MEDS: FLUCONAZOLE IN NACL,ISO-OSM 200 ML IV SCH (12:28)
[2023-02-11] MEDS: CEFEPIME 2 GM in D5W 100 ML IV SCH (17:14)
[2023-02-11] MEDS ORDERED: TPN CENTRAL IV SCH ×9 (21:00)
[2023-02-11] MEDS ORDERED: POTASSIUM CHLORIDE IV SCH ×9 (21:00)
[2023-02-11] MEDS ORDERED: K PHOS IV SCH ×9 (21:00)
[2023-02-11] MEDS ORDERED: [UNRECOGNIZED DRUG - OTHER] IV SCH ×9 (21:00)
[2023-02-11] MEDS ORDERED: SODIUM CHLORIDE IV SCH ×9 (21:00)
[2023-02-12] VITALS (42 sets, daily range): BP systolic 83–147; PULSE 55–73; RESP 18; TEMP 96.5–98; O2SAT 92–98
[2023-02-12] MEDS: ALBUTEROL SULFATE 0.083% 2.5 MG/3 ML VIAL.NEB INH SCH ×4 (01:19→19:26)
[2023-02-12 04:34] LABS: BASOPHILS # (AUTO) 0.1 K/uL (0.0-0.2); BASOPHILS % (AUTO) 0.4 % (0.0-2.0); EOSINOPHILS # (AUTO) 0.1 K/uL (0.0-0.4); EOSINOPHILS % (AUTO) 0.8 % (0.0-4.0); HEMATOCRIT 32.3 % (36-54); HEMOGLOBIN 11.1 g/dL (14.0-18.0); LYMPHOCYTES # (AUTO) 2.2 K/uL (1.0-5.5); LYMPHOCYTES % (AUTO) 14.2 % (20.5-51.5); MEAN CORPUSCULAR HEMOGLOBIN 31 pg (27-31); MEAN CORPUSCULAR HGB CONC 34 % (32-36); MEAN CORPUSCULAR VOLUME 91 fL (79.0-98.0); MONOCYTES # (AUTO) 1.6 K/uL (0.0-1.0); MONOCYTES % (AUTO) 10.3 % (1.7-9.3); NEUTROPHILS # (AUTO) 11.5 K/uL (1.8-7.7); NEUTROPHILS % (AUTO) 74.3 % (40.0-70.0); PLATELET COUNT (AUTO) 576 K/uL (130-430); RED BLOOD CELL COUNT(AUTO) 3.54 MIL/uL (4.2-6.2); RED CELL DISTRIBUTION WIDTH 13.9 % (9.0-15.0); WHITE BLOOD COUNT (AUTO) 15.4 K/uL (4.8-10.8)
[2023-02-12 05:19] LABS: CALCIUM 7.8 mg/dL (8.4-11.0); CREATININE 0.45 mg/dL (0.55-1.30); PHOSPHORUS 2.1 mg/dL (2.7-4.5); POTASSIUM 3.7 mmol/L (3.5-5.1); TOTAL BILIRUBIN 0.8 mg/dL (0.0-1.0); TOTAL PROTEIN, SERUM 6.9 g/dL (6.4-8.3)
[2023-02-12] MEDS: METOCLOPRAMIDE HCL 10 MG/2 ML VIAL IVP SCH ×4 (05:32→23:29)
[2023-02-12] MEDS: THEOPHYLLINE ANHYDROUS 80 MG/15 ML UDC GT SCH ×3 (05:53→20:41)
[2023-02-12] MEDS: GABAPENTIN 100 MG CAPSULE GT SCH ×3 (05:54→20:53)
[2023-02-12] MEDS: BALSAM PERU/CASTOR OIL 56.7 GM OINT...G. TP SCH (09:00)
[2023-02-12] MEDS: MINERAL OIL/PETROLATUM,WHITE 3.5 GM EYE OINT. OP SCH ×2 (09:00→20:40)
[2023-02-12] MEDS: LevETIRAcetam 500 MG/5 ML UDC ORAL LIQUID GT SCH ×2 (09:28→20:38)
[2023-02-12] MEDS: CHLORHEXIDINE GLUC 0.12% 15 ML MOUTHWASH UDC MM SCH ×2 (09:28→20:40)
[2023-02-12] MEDS: DOCUSATE SODIUM 100 MG/10 ML UDC GT SCH (09:28)
[2023-02-12] MEDS: POTASSIUM CHLORIDE 20 MEQ/PKT PACKET GT SCH ×2 (09:29→20:38)
[2023-02-12] MEDS: MULTIVITAMINS TAB 1 TABLET GT SCH (09:29)
[2023-02-12] MEDS: TAMSULOSIN HCL 0.4 MG CAP GT SCH ×2 (09:29→20:37)
[2023-02-12] MEDS: MIDODRINE HCL 5 MG TABLET (PROAMATINE) PO SCH ×3 (09:30→20:41)
[2023-02-12] MEDS: BACLOFEN 10 MG TABLET GT SCH ×3 (09:30→20:37)
[2023-02-12] MEDS: FLUDROCORTISONE ACETATE 0.1 MG TABLET( FLORINEF) PO SCH (09:30)
[2023-02-12] MEDS: CHOLECALCIFEROL (VITAMIN D3) 2,000 UNIT TABLET GT SCH (09:30)
[2023-02-12] MEDS: HYDROCORTISONE SOD SUCC 100 MG/2 ML VIAL IVP SCH ×2 (09:31→20:40)
[2023-02-12] MEDS: ASCORBIC ACID 500 MG TABLET GT SCH ×2 (09:31→20:39)
[2023-02-12] MEDS: DESMOPRESSIN ACETATE 4 MCG/ML AMP IVP SCH ×2 (09:32→20:39)
[2023-02-12] MEDS: HEPARIN SODIUM,PORCINE 5,000 UNITS/ML VIAL SUBCUT SCH ×2 (09:36→20:56)
[2023-02-12] MEDS: FLUCONAZOLE IN NACL,ISO-OSM 200 ML IV SCH (12:12)
[2023-02-12] MEDS: D5W 1,000 ML IV SCH (15:32)
[2023-02-12] MEDS: CEFEPIME 2 GM in D5W 100 ML IV SCH (17:21)
[2023-02-12] MEDS ORDERED: [UNRECOGNIZED DRUG - OTHER] IV SCH ×9 (21:00)
[2023-02-12] MEDS ORDERED: SODIUM CHLORIDE IV SCH ×9 (21:00)
[2023-02-12] MEDS ORDERED: TPN CENTRAL IV SCH ×9 (21:00)
[2023-02-12] MEDS ORDERED: POTASSIUM CHLORIDE IV SCH ×9 (21:00)
[2023-02-13] VITALS (51 sets, daily range): BP systolic 82–149; PULSE 60–70; RESP 18; TEMP 97.1–97.9; O2SAT 90–98
[2023-02-13] MEDS: ALBUTEROL SULFATE 0.083% 2.5 MG/3 ML VIAL.NEB INH SCH ×4 (01:07→19:36)
[2023-02-13] MEDS: D5W 1,000 ML IV SCH ×2 (03:17→16:22)
[2023-02-13] MEDS: NOREPINEPHRINE BITARTRATE 16 MG in NS 234 ML IV PRN (04:23)
[2023-02-13 04:25] LABS: BASOPHILS % (AUTO) 0.1 % (0.0-2.0); EOSINOPHILS % (AUTO) 0.1 % (0.0-4.0); HEMATOCRIT 28.2 % (36-54); LYMPHOCYTES # (AUTO) 1.2 K/uL (1.0-5.5); MEAN CORPUSCULAR HEMOGLOBIN 32 pg (27-31); MEAN CORPUSCULAR HGB CONC 36 % (32-36); MEAN CORPUSCULAR VOLUME 90 fL (79.0-98.0); MONOCYTES # (AUTO) 0.7 K/uL (0.0-1.0); MONOCYTES % (AUTO) 6.5 % (1.7-9.3); NEUTROPHILS # (AUTO) 9.3 K/uL (1.8-7.7); NEUTROPHILS % (AUTO) 82.3 % (40.0-70.0); PLATELET COUNT (AUTO) 495 K/uL (130-430); RED BLOOD CELL COUNT(AUTO) 3.13 MIL/uL (4.2-6.2); RED CELL DISTRIBUTION WIDTH 13.9 % (9.0-15.0); WHITE BLOOD COUNT (AUTO) 11.2 K/uL (4.8-10.8)
[2023-02-13 05:07] LABS: ALBUMIN 1.9 g/dL (3.4-4.8); CALCIUM 7.8 mg/dL (8.4-11.0); CREATININE 0.44 mg/dL (0.55-1.30); PHOSPHORUS 2.4 mg/dL (2.7-4.5); POTASSIUM 4.3 mmol/L (3.5-5.1); TOTAL BILIRUBIN 0.7 mg/dL (0.0-1.0); TOTAL PROTEIN, SERUM 6.5 g/dL (6.4-8.3)
[2023-02-13] MEDS: THEOPHYLLINE ANHYDROUS 80 MG/15 ML UDC GT SCH ×3 (05:53→21:11)
[2023-02-13] MEDS: METOCLOPRAMIDE HCL 10 MG/2 ML VIAL IVP SCH ×3 (05:54→17:40)
[2023-02-13] MEDS: GABAPENTIN 100 MG CAPSULE GT SCH ×3 (05:54→21:11)
[2023-02-13] MEDS: BACLOFEN 10 MG TABLET GT SCH ×3 (08:21→20:50)
[2023-02-13] MEDS: DOCUSATE SODIUM 100 MG/10 ML UDC GT SCH (08:23)
[2023-02-13] MEDS: TAMSULOSIN HCL 0.4 MG CAP GT SCH ×2 (08:23→20:50)
[2023-02-13] MEDS: MULTIVITAMINS TAB 1 TABLET GT SCH (08:23)
[2023-02-13] MEDS: CHOLECALCIFEROL (VITAMIN D3) 2,000 UNIT TABLET GT SCH (08:23)
[2023-02-13] MEDS: ASCORBIC ACID 500 MG TABLET GT SCH ×2 (08:23→20:51)
[2023-02-13] MEDS: FLUDROCORTISONE ACETATE 0.1 MG TABLET( FLORINEF) PO SCH (08:23)
[2023-02-13] MEDS: POTASSIUM CHLORIDE 20 MEQ/PKT PACKET GT SCH ×2 (08:24→20:50)
[2023-02-13] MEDS: HYDROCORTISONE SOD SUCC 100 MG/2 ML VIAL IVP SCH ×2 (08:25→20:51)
[2023-02-13] MEDS: HEPARIN SODIUM,PORCINE 5,000 UNITS/ML VIAL SUBCUT SCH ×2 (08:27→20:58)
[2023-02-13] MEDS: LevETIRAcetam 500 MG/5 ML UDC ORAL LIQUID GT SCH ×2 (08:28→20:51)
[2023-02-13] MEDS: DESMOPRESSIN ACETATE 4 MCG/ML AMP IVP SCH ×2 (08:29→20:53)
[2023-02-13] MEDS: MIDODRINE HCL 5 MG TABLET (PROAMATINE) PO SCH ×3 (08:32→20:52)
[2023-02-13] MEDS: CHLORHEXIDINE GLUC 0.12% 15 ML MOUTHWASH UDC MM SCH ×2 (08:32→20:51)
[2023-02-13] MEDS: MINERAL OIL/PETROLATUM,WHITE 3.5 GM EYE OINT. OP SCH ×2 (09:39→21:00)
[2023-02-13] MEDS: BALSAM PERU/CASTOR OIL 56.7 GM OINT...G. TP SCH (09:40)
[2023-02-13] MEDS: FLUCONAZOLE IN NACL,ISO-OSM 200 ML IV SCH (12:40)
[2023-02-13] MEDS ORDERED: NOREPINEPHR 16 MG/250 mL NS 250 ML IV PRN (13:59)
[2023-02-13] MEDS: CEFEPIME 2 GM in D5W 100 ML IV SCH (16:23)
[2023-02-13] MEDS ORDERED: TPN CENTRAL IV SCH ×9 (21:00)
[2023-02-13] MEDS ORDERED: SODIUM CHLORIDE IV SCH ×9 (21:00)
[2023-02-13] MEDS ORDERED: [UNRECOGNIZED DRUG - OTHER] IV SCH ×9 (21:00)
[2023-02-13] MEDS ORDERED: POTASSIUM CHLORIDE IV SCH ×9 (21:00)
[2023-02-14] VITALS (58 sets, daily range): BP systolic 80–176; PULSE 50–71; RESP 16–18; TEMP 96.6–97.9; O2SAT 96–99
[2023-02-14] MEDS: METOCLOPRAMIDE HCL 10 MG/2 ML VIAL IVP SCH ×4 (00:10→17:21)
[2023-02-14] MEDS: ALBUTEROL SULFATE 0.083% 2.5 MG/3 ML VIAL.NEB INH SCH ×4 (00:55→19:52)
[2023-02-14] MEDS: GABAPENTIN 100 MG CAPSULE GT SCH ×3 (05:25→21:01)
[2023-02-14] MEDS: THEOPHYLLINE ANHYDROUS 80 MG/15 ML UDC GT SCH ×3 (05:25→20:43)
[2023-02-14 05:42] LABS: BASOPHILS % (AUTO) 0.3 % (0.0-2.0); EOSINOPHILS % (AUTO) 0.2 % (0.0-4.0); HEMATOCRIT 26.1 % (36-54); LYMPHOCYTES # (AUTO) 1.3 K/uL (1.0-5.5); LYMPHOCYTES % (AUTO) 10.4 % (20.5-51.5); MEAN CORPUSCULAR HEMOGLOBIN 32 pg (27-31); MEAN CORPUSCULAR HGB CONC 35 % (32-36); MEAN CORPUSCULAR VOLUME 92 fL (79.0-98.0); MONOCYTES # (AUTO) 1.2 K/uL (0.0-1.0); MONOCYTES % (AUTO) 9.8 % (1.7-9.3); NEUTROPHILS # (AUTO) 10.1 K/uL (1.8-7.7); NEUTROPHILS % (AUTO) 79.3 % (40.0-70.0); PLATELET COUNT (AUTO) 444 K/uL (130-430); RED BLOOD CELL COUNT(AUTO) 2.85 MIL/uL (4.2-6.2); RED CELL DISTRIBUTION WIDTH 13.8 % (9.0-15.0); WHITE BLOOD COUNT (AUTO) 12.7 K/uL (4.8-10.8)
[2023-02-14 06:15] LABS: ALBUMIN 1.7 g/dL (3.4-4.8); CALCIUM 7.9 mg/dL (8.4-11.0); CREATININE 0.42 mg/dL (0.55-1.30); PHOSPHORUS 2.5 mg/dL (2.7-4.5); POTASSIUM 4.4 mmol/L (3.5-5.1); TOTAL BILIRUBIN 0.6 mg/dL (0.0-1.0)
[2023-02-14] MEDS: ASCORBIC ACID 500 MG TABLET GT SCH ×2 (09:00→20:45)
[2023-02-14] MEDS: BALSAM PERU/CASTOR OIL 56.7 GM OINT...G. TP SCH (09:00)
[2023-02-14] MEDS: TAMSULOSIN HCL 0.4 MG CAP GT SCH ×2 (09:59→20:45)
[2023-02-14] MEDS: BACLOFEN 10 MG TABLET GT SCH ×3 (09:59→20:45)
[2023-02-14] MEDS: DOCUSATE SODIUM 100 MG/10 ML UDC GT SCH (09:59)
[2023-02-14] MEDS: POTASSIUM CHLORIDE 20 MEQ/PKT PACKET GT SCH ×2 (10:00→20:45)
[2023-02-14] MEDS: LevETIRAcetam 500 MG/5 ML UDC ORAL LIQUID GT SCH ×2 (10:00→20:45)
[2023-02-14] MEDS: MULTIVITAMINS TAB 1 TABLET GT SCH (10:00)
[2023-02-14] MEDS: DESMOPRESSIN ACETATE 4 MCG/ML AMP IVP SCH ×2 (10:01→20:45)
[2023-02-14] MEDS: CHOLECALCIFEROL (VITAMIN D3) 2,000 UNIT TABLET GT SCH (10:01)
[2023-02-14] MEDS: FLUDROCORTISONE ACETATE 0.1 MG TABLET( FLORINEF) PO SCH (10:02)
[2023-02-14] MEDS: CHLORHEXIDINE GLUC 0.12% 15 ML MOUTHWASH UDC MM SCH ×2 (10:02→20:43)
[2023-02-14] MEDS: MIDODRINE HCL 5 MG TABLET (PROAMATINE) PO SCH ×3 (10:02→20:45)
[2023-02-14] MEDS: HYDROCORTISONE SOD SUCC 100 MG/2 ML VIAL IVP SCH ×2 (10:02→20:45)
[2023-02-14] MEDS: MINERAL OIL/PETROLATUM,WHITE 3.5 GM EYE OINT. OP SCH ×2 (10:05→21:00)
[2023-02-14] MEDS: HEPARIN SODIUM,PORCINE 5,000 UNITS/ML VIAL SUBCUT SCH ×2 (10:05→21:00)
[2023-02-14] MEDS: D5W 1,000 ML IV SCH ×2 (14:15→21:47)
[2023-02-14] MEDS: CEFEPIME 2 GM in D5W 100 ML IV SCH (17:20)
[2023-02-14] MEDS: INSULIN REGULAR, HUMAN 100 UNITS/ML, 3 ML VIAL (humuLIN R) SUBCUT PRN (17:38)
[2023-02-14] MEDS ORDERED: [UNRECOGNIZED DRUG - OTHER] IV SCH ×9 (21:00)
[2023-02-14] MEDS ORDERED: POTASSIUM CHLORIDE IV SCH ×9 (21:00)
[2023-02-14] MEDS ORDERED: TPN CENTRAL IV SCH ×9 (21:00)
[2023-02-14] MEDS ORDERED: SODIUM CHLORIDE IV SCH ×9 (21:00)
[2023-02-15] VITALS (53 sets, daily range): BP systolic 86–153; PULSE 52–72; RESP 11–18; TEMP 96.8–97.8; O2SAT 94–100
[2023-02-15] MEDS: METOCLOPRAMIDE HCL 10 MG/2 ML VIAL IVP SCH ×5 (00:41→23:33)
[2023-02-15] MEDS: INSULIN REGULAR, HUMAN 100 UNITS/ML, 3 ML VIAL (humuLIN R) SUBCUT PRN ×4 (00:49→17:18)
[2023-02-15] MEDS: D5W 1,000 ML IV SCH (03:51)
[2023-02-15] MEDS: GABAPENTIN 100 MG CAPSULE GT SCH ×3 (05:47→21:50)
[2023-02-15] MEDS: THEOPHYLLINE ANHYDROUS 80 MG/15 ML UDC GT SCH ×3 (05:48→21:49)
[2023-02-15 06:19] LABS: BASOPHILS % (AUTO) 0.1 % (0.0-2.0); EOSINOPHILS % (AUTO) 0.1 % (0.0-4.0); HEMATOCRIT 28.1 % (36-54); HEMOGLOBIN 9.9 g/dL (14.0-18.0); LYMPHOCYTES # (AUTO) 0.9 K/uL (1.0-5.5); LYMPHOCYTES % (AUTO) 6.7 % (20.5-51.5); MEAN CORPUSCULAR HEMOGLOBIN 32 pg (27-31); MEAN CORPUSCULAR HGB CONC 35 % (32-36); MEAN CORPUSCULAR VOLUME 90 fL (79.0-98.0); MONOCYTES % (AUTO) 7.4 % (1.7-9.3); NEUTROPHILS # (AUTO) 11.3 K/uL (1.8-7.7); NEUTROPHILS % (AUTO) 85.7 % (40.0-70.0); PLATELET COUNT (AUTO) 496 K/uL (130-430); RED BLOOD CELL COUNT(AUTO) 3.12 MIL/uL (4.2-6.2); WHITE BLOOD COUNT (AUTO) 13.2 K/uL (4.8-10.8)
[2023-02-15 07:19] LABS: CALCIUM 7.8 mg/dL (8.4-11.0); POTASSIUM 3.9 mmol/L (3.5-5.1)
[2023-02-15 07:20] LABS: ALBUMIN 1.8 g/dL (3.4-4.8); CREATININE 0.32 mg/dL (0.55-1.30); PHOSPHORUS 1.9 mg/dL (2.7-4.5); TOTAL BILIRUBIN 0.5 mg/dL (0.0-1.0); TOTAL PROTEIN, SERUM 6.4 g/dL (6.4-8.3)
[2023-02-15] MEDS: ALBUTEROL SULFATE 0.083% 2.5 MG/3 ML VIAL.NEB INH SCH ×3 (07:44→19:56)
[2023-02-15] MEDS: CHLORHEXIDINE GLUC 0.12% 15 ML MOUTHWASH UDC MM SCH ×2 (09:03→21:50)
[2023-02-15] MEDS: LevETIRAcetam 500 MG/5 ML UDC ORAL LIQUID GT SCH ×2 (09:04→21:50)
[2023-02-15] MEDS: MIDODRINE HCL 5 MG TABLET (PROAMATINE) PO SCH ×3 (09:04→21:50)
[2023-02-15] MEDS: POTASSIUM CHLORIDE 20 MEQ/PKT PACKET GT SCH ×2 (09:04→21:50)
[2023-02-15] MEDS: MULTIVITAMINS TAB 1 TABLET GT SCH (09:04)
[2023-02-15] MEDS: CHOLECALCIFEROL (VITAMIN D3) 2,000 UNIT TABLET GT SCH (09:04)
[2023-02-15] MEDS: TAMSULOSIN HCL 0.4 MG CAP GT SCH ×2 (09:05→22:01)
[2023-02-15] MEDS: FLUDROCORTISONE ACETATE 0.1 MG TABLET( FLORINEF) PO SCH (09:05)
[2023-02-15] MEDS: DOCUSATE SODIUM 100 MG/10 ML UDC GT SCH (09:06)
[2023-02-15] MEDS: HYDROCORTISONE SOD SUCC 100 MG/2 ML VIAL IVP SCH ×2 (09:06→21:59)
[2023-02-15] MEDS: MINERAL OIL/PETROLATUM,WHITE 3.5 GM EYE OINT. OP SCH ×2 (09:07→21:51)
[2023-02-15] MEDS: BALSAM PERU/CASTOR OIL 56.7 GM OINT...G. TP SCH (09:08)
[2023-02-15] MEDS: HEPARIN SODIUM,PORCINE 5,000 UNITS/ML VIAL SUBCUT SCH ×2 (09:11→21:57)
[2023-02-15] MEDS: DESMOPRESSIN ACETATE 4 MCG/ML AMP IVP SCH ×2 (09:15→21:49)
[2023-02-15] MEDS: BACLOFEN 10 MG TABLET GT SCH ×3 (10:54→21:50)
[2023-02-15] MEDS: ASCORBIC ACID 500 MG TABLET GT SCH ×2 (10:54→21:50)
[2023-02-15] MEDS: CEFEPIME 2 GM in D5W 100 ML IV SCH (17:14)
[2023-02-15] MEDS ORDERED: TPN CENTRAL IV SCH ×9 (21:00)
[2023-02-15] MEDS ORDERED: SODIUM CHLORIDE IV SCH ×9 (21:00)
[2023-02-15] MEDS ORDERED: [UNRECOGNIZED DRUG - OTHER] IV SCH ×9 (21:00)
[2023-02-15] MEDS ORDERED: POTASSIUM CHLORIDE IV SCH ×9 (21:00)
[2023-02-16] VITALS (51 sets, daily range): BP systolic 84–164; PULSE 43–66; RESP 15–28; TEMP 96–97.5; O2SAT 94–100
[2023-02-16] MEDS: D5W 1,000 ML IV SCH ×3 (00:27→23:59)
[2023-02-16] MEDS: ALBUTEROL SULFATE 0.083% 2.5 MG/3 ML VIAL.NEB INH SCH ×4 (01:31→19:55)
[2023-02-16 04:25] LABS: BASOPHILS % (AUTO) 0.2 % (0.0-2.0); EOSINOPHILS # (AUTO) 0.1 K/uL (0.0-0.4); EOSINOPHILS % (AUTO) 0.6 % (0.0-4.0); HEMATOCRIT 27.5 % (36-54); LYMPHOCYTES # (AUTO) 1.8 K/uL (1.0-5.5); LYMPHOCYTES % (AUTO) 11.9 % (20.5-51.5); MEAN CORPUSCULAR HEMOGLOBIN 33 pg (27-31); MEAN CORPUSCULAR HGB CONC 36 % (32-36); MEAN CORPUSCULAR VOLUME 90 fL (79.0-98.0); MONOCYTES # (AUTO) 2.1 K/uL (0.0-1.0); MONOCYTES % (AUTO) 14.2 % (1.7-9.3); NEUTROPHILS # (AUTO) 10.8 K/uL (1.8-7.7); NEUTROPHILS % (AUTO) 73.1 % (40.0-70.0); PLATELET COUNT (AUTO) 482 K/uL (130-430); RED BLOOD CELL COUNT(AUTO) 3.06 MIL/uL (4.2-6.2); RED CELL DISTRIBUTION WIDTH 14.9 % (9.0-15.0); WHITE BLOOD COUNT (AUTO) 14.7 K/uL (4.8-10.8)
[2023-02-16 04:38] LABS: ALBUMIN 1.8 g/dL (3.4-4.8); CALCIUM 7.7 mg/dL (8.4-11.0); CREATININE 0.3 mg/dL (0.55-1.30); PHOSPHORUS 1.6 mg/dL (2.7-4.5); POTASSIUM 4.1 mmol/L (3.5-5.1); TOTAL BILIRUBIN 0.4 mg/dL (0.0-1.0); TOTAL PROTEIN, SERUM 6.1 g/dL (6.4-8.3)
[2023-02-16] MEDS: GABAPENTIN 100 MG CAPSULE GT SCH ×3 (05:35→21:02)
[2023-02-16] MEDS: THEOPHYLLINE ANHYDROUS 80 MG/15 ML UDC GT SCH ×3 (05:35→21:02)
[2023-02-16] MEDS: METOCLOPRAMIDE HCL 10 MG/2 ML VIAL IVP SCH ×3 (05:35→17:07)
[2023-02-16] MEDS: DOCUSATE SODIUM 100 MG/10 ML UDC GT SCH (10:20)
[2023-02-16] MEDS: ASCORBIC ACID 500 MG TABLET GT SCH ×2 (10:21→20:24)
[2023-02-16] MEDS: BACLOFEN 10 MG TABLET GT SCH ×3 (10:21→20:23)
[2023-02-16] MEDS: TAMSULOSIN HCL 0.4 MG CAP GT SCH ×2 (10:21→20:24)
[2023-02-16] MEDS: MULTIVITAMINS TAB 1 TABLET GT SCH (10:21)
[2023-02-16] MEDS: POTASSIUM CHLORIDE 20 MEQ/PKT PACKET GT SCH ×2 (10:21→20:24)
[2023-02-16] MEDS: FLUDROCORTISONE ACETATE 0.1 MG TABLET( FLORINEF) PO SCH (10:21)
[2023-02-16] MEDS: MINERAL OIL/PETROLATUM,WHITE 3.5 GM EYE OINT. OP SCH ×2 (10:22→20:30)
[2023-02-16] MEDS: CHLORHEXIDINE GLUC 0.12% 15 ML MOUTHWASH UDC MM SCH ×2 (10:24→20:23)
[2023-02-16] MEDS: LevETIRAcetam 500 MG/5 ML UDC ORAL LIQUID GT SCH ×2 (10:24→20:23)
[2023-02-16] MEDS: MIDODRINE HCL 5 MG TABLET (PROAMATINE) PO SCH ×3 (10:24→20:24)
[2023-02-16] MEDS: HYDROCORTISONE SOD SUCC 100 MG/2 ML VIAL IVP SCH ×2 (10:27→20:23)
[2023-02-16] MEDS: HEPARIN SODIUM,PORCINE 5,000 UNITS/ML VIAL SUBCUT SCH ×2 (10:29→20:37)
[2023-02-16] MEDS: BALSAM PERU/CASTOR OIL 56.7 GM OINT...G. TP SCH (10:30)
[2023-02-16] MEDS: CHOLECALCIFEROL (VITAMIN D3) 2,000 UNIT TABLET GT SCH (10:51)
[2023-02-16] MEDS: DESMOPRESSIN ACETATE 4 MCG/ML AMP IVP SCH ×2 (12:23→20:30)
[2023-02-16] MEDS: CEFEPIME 2 GM in D5W 100 ML IV SCH (17:07)
[2023-02-16] MEDS: INSULIN REGULAR, HUMAN 100 UNITS/ML, 3 ML VIAL (humuLIN R) SUBCUT PRN (17:18)
[2023-02-16] MEDS ORDERED: TPN CENTRAL IV SCH ×8 (21:00)
[2023-02-16] MEDS ORDERED: SODIUM CHLORIDE IV SCH ×8 (21:00)
[2023-02-16] MEDS ORDERED: [UNRECOGNIZED DRUG - OTHER] IV SCH ×8 (21:00)
[2023-02-16] MEDS ORDERED: K PHOS IV SCH ×8 (21:00)
[2023-02-17] VITALS (56 sets, daily range): BP systolic 83–148; PULSE 45–58; RESP 18; TEMP 94.6–96.2; O2SAT 96–100
[2023-02-17] MEDS: METOCLOPRAMIDE HCL 10 MG/2 ML VIAL IVP SCH ×4 (00:46→18:09)
[2023-02-17] MEDS: INSULIN REGULAR, HUMAN 100 UNITS/ML, 3 ML VIAL (humuLIN R) SUBCUT PRN ×4 (00:50→18:22)
[2023-02-17] MEDS: ALBUTEROL SULFATE 0.083% 2.5 MG/3 ML VIAL.NEB INH SCH ×2 (01:39→20:21)
[2023-02-17 05:51] LABS: BASOPHILS % (AUTO) 0.2 % (0.0-2.0); EOSINOPHILS % (AUTO) 0.2 % (0.0-4.0); HEMATOCRIT 27.7 % (36-54); HEMOGLOBIN 10.2 g/dL (14.0-18.0); LYMPHOCYTES # (AUTO) 1.6 K/uL (1.0-5.5); LYMPHOCYTES % (AUTO) 9.6 % (20.5-51.5); MEAN CORPUSCULAR HEMOGLOBIN 33 pg (27-31); MEAN CORPUSCULAR HGB CONC 37 % (32-36); MEAN CORPUSCULAR VOLUME 89 fL (79.0-98.0); MONOCYTES # (AUTO) 1.8 K/uL (0.0-1.0); MONOCYTES % (AUTO) 10.9 % (1.7-9.3); NEUTROPHILS # (AUTO) 13.3 K/uL (1.8-7.7); NEUTROPHILS % (AUTO) 79.1 % (40.0-70.0); PLATELET COUNT (AUTO) 455 K/uL (130-430); RED BLOOD CELL COUNT(AUTO) 3.11 MIL/uL (4.2-6.2); RED CELL DISTRIBUTION WIDTH 14.5 % (9.0-15.0); WHITE BLOOD COUNT (AUTO) 16.9 K/uL (4.8-10.8)
[2023-02-17] MEDS: THEOPHYLLINE ANHYDROUS 80 MG/15 ML UDC GT SCH ×3 (06:13→22:22)
[2023-02-17] MEDS: GABAPENTIN 100 MG CAPSULE GT SCH ×3 (06:13→22:21)
[2023-02-17 06:16] LABS: ALBUMIN 1.7 g/dL (3.4-4.8); CALCIUM 7.7 mg/dL (8.4-11.0); CREATININE 0.27 mg/dL (0.55-1.30); PHOSPHORUS 2.2 mg/dL (2.7-4.5); POTASSIUM 4.7 mmol/L (3.5-5.1); TOTAL BILIRUBIN 0.4 mg/dL (0.0-1.0); TOTAL PROTEIN, SERUM 6.1 g/dL (6.4-8.3)
[2023-02-17] MEDS: LevETIRAcetam 500 MG/5 ML UDC ORAL LIQUID GT SCH ×2 (08:35→22:29)
[2023-02-17] MEDS: CHLORHEXIDINE GLUC 0.12% 15 ML MOUTHWASH UDC MM SCH ×2 (08:35→22:56)
[2023-02-17] MEDS: CHOLECALCIFEROL (VITAMIN D3) 2,000 UNIT TABLET GT SCH (08:36)
[2023-02-17] MEDS: DOCUSATE SODIUM 100 MG/10 ML UDC GT SCH (08:36)
[2023-02-17] MEDS: MIDODRINE HCL 5 MG TABLET (PROAMATINE) PO SCH ×3 (08:36→22:21)
[2023-02-17] MEDS: ASCORBIC ACID 500 MG TABLET GT SCH ×2 (08:36→22:21)
[2023-02-17] MEDS: BACLOFEN 10 MG TABLET GT SCH ×3 (08:36→22:21)
[2023-02-17] MEDS: FLUDROCORTISONE ACETATE 0.1 MG TABLET( FLORINEF) PO SCH (08:36)
[2023-02-17] MEDS: MULTIVITAMINS TAB 1 TABLET GT SCH (08:37)
[2023-02-17] MEDS: TAMSULOSIN HCL 0.4 MG CAP GT SCH ×2 (08:37→21:00)
[2023-02-17] MEDS: POTASSIUM CHLORIDE 20 MEQ/PKT PACKET GT SCH ×2 (08:37→22:21)
[2023-02-17] MEDS: HEPARIN SODIUM,PORCINE 5,000 UNITS/ML VIAL SUBCUT SCH ×2 (08:39→22:26)
[2023-02-17] MEDS: MINERAL OIL/PETROLATUM,WHITE 3.5 GM EYE OINT. OP SCH ×2 (08:40→22:41)
[2023-02-17] MEDS: BALSAM PERU/CASTOR OIL 56.7 GM OINT...G. TP SCH (08:41)
[2023-02-17] MEDS: DESMOPRESSIN ACETATE 4 MCG/ML AMP IVP SCH (08:47)
[2023-02-17] MEDS: HYDROCORTISONE SOD SUCC 100 MG/2 ML VIAL IVP SCH ×2 (08:54→22:23)
[2023-02-17] MEDS: D5W 1,000 ML IV SCH (11:51)
[2023-02-17] MEDS ORDERED: NOREPINEPHRINE BITARTRATE 16 MG in NS 234 ML IV PRN (14:30)
[2023-02-17] MEDS: CEFEPIME 2 GM in D5W 100 ML IV SCH (17:13)
[2023-02-17] MEDS ORDERED: SODIUM CHLORIDE IV SCH ×8 (21:00)
[2023-02-17] MEDS ORDERED: [UNRECOGNIZED DRUG - OTHER] IV SCH ×8 (21:00)
[2023-02-17] MEDS ORDERED: K PHOS IV SCH ×8 (21:00)
[2023-02-17] MEDS ORDERED: TPN CENTRAL IV SCH ×8 (21:00)
[2023-02-18] VITALS (43 sets, daily range): BP systolic 85–158; PULSE 52–61; RESP 18; TEMP 95.4–96.7; O2SAT 93–99
[2023-02-18] MEDS: METOCLOPRAMIDE HCL 10 MG/2 ML VIAL IVP SCH ×3 (00:11→12:27)
[2023-02-18] MEDS: INSULIN REGULAR, HUMAN 100 UNITS/ML, 3 ML VIAL (humuLIN R) SUBCUT PRN ×2 (00:21→06:42)
[2023-02-18] MEDS: ALBUTEROL SULFATE 0.083% 2.5 MG/3 ML VIAL.NEB INH SCH ×3 (01:58→13:53)
[2023-02-18 05:19] LABS: BASOPHILS # (AUTO) 0.1 K/uL (0.0-0.2); BASOPHILS % (AUTO) 0.3 % (0.0-2.0); EOSINOPHILS # (AUTO) 0.1 K/uL (0.0-0.4); EOSINOPHILS % (AUTO) 0.4 % (0.0-4.0); HEMATOCRIT 29.2 % (36-54); HEMOGLOBIN 10.5 g/dL (14.0-18.0); LYMPHOCYTES # (AUTO) 1.6 K/uL (1.0-5.5); LYMPHOCYTES % (AUTO) 8.5 % (20.5-51.5); MEAN CORPUSCULAR HEMOGLOBIN 32 pg (27-31); MEAN CORPUSCULAR HGB CONC 36 % (32-36); MEAN CORPUSCULAR VOLUME 89 fL (79.0-98.0); MONOCYTES # (AUTO) 1.8 K/uL (0.0-1.0); MONOCYTES % (AUTO) 9.8 % (1.7-9.3); NEUTROPHILS # (AUTO) 14.8 K/uL (1.8-7.7); PLATELET COUNT (AUTO) 435 K/uL (130-430); RED BLOOD CELL COUNT(AUTO) 3.26 MIL/uL (4.2-6.2); RED CELL DISTRIBUTION WIDTH 14.9 % (9.0-15.0); WHITE BLOOD COUNT (AUTO) 18.3 K/uL (4.8-10.8)
[2023-02-18 05:48] LABS: ALBUMIN 1.7 g/dL (3.4-4.8); CALCIUM 7.5 mg/dL (8.4-11.0); CREATININE 0.29 mg/dL (0.55-1.30); PHOSPHORUS 2.2 mg/dL (2.7-4.5); POTASSIUM 4.9 mmol/L (3.5-5.1); TOTAL BILIRUBIN 0.4 mg/dL (0.0-1.0); TOTAL PROTEIN, SERUM 5.9 g/dL (6.4-8.3)
[2023-02-18] MEDS: THEOPHYLLINE ANHYDROUS 80 MG/15 ML UDC GT SCH (06:40)
[2023-02-18] MEDS: GABAPENTIN 100 MG CAPSULE GT SCH (06:40)
[2023-02-18] MEDS: D5W 1,000 ML IV SCH (09:06)
[2023-02-18] MEDS: POTASSIUM CHLORIDE 20 MEQ/PKT PACKET GT SCH (09:07)
[2023-02-18] MEDS: HEPARIN SODIUM,PORCINE 5,000 UNITS/ML VIAL SUBCUT SCH (09:09)
[2023-02-18] MEDS: TAMSULOSIN HCL 0.4 MG CAP GT SCH (09:10)
[2023-02-18] MEDS: FLUDROCORTISONE ACETATE 0.1 MG TABLET( FLORINEF) PO SCH (09:10)
[2023-02-18] MEDS: CHOLECALCIFEROL (VITAMIN D3) 2,000 UNIT TABLET GT SCH (09:10)
[2023-02-18] MEDS: BACLOFEN 10 MG TABLET GT SCH (09:10)
[2023-02-18] MEDS: DOCUSATE SODIUM 100 MG/10 ML UDC GT SCH (09:10)
[2023-02-18] MEDS: MULTIVITAMINS TAB 1 TABLET GT SCH (09:10)
[2023-02-18] MEDS: ASCORBIC ACID 500 MG TABLET GT SCH (09:10)
[2023-02-18] MEDS: HYDROCORTISONE SOD SUCC 100 MG/2 ML VIAL IVP SCH (09:10)
[2023-02-18] MEDS: LevETIRAcetam 500 MG/5 ML UDC ORAL LIQUID GT SCH (09:11)
[2023-02-18] MEDS: CHLORHEXIDINE GLUC 0.12% 15 ML MOUTHWASH UDC MM SCH (09:12)
[2023-02-18] MEDS: MIDODRINE HCL 5 MG TABLET (PROAMATINE) PO SCH (09:13)
[2023-02-18] MEDS: MINERAL OIL/PETROLATUM,WHITE 3.5 GM EYE OINT. OP SCH (12:29)
[2023-02-18] MEDS: BALSAM PERU/CASTOR OIL 56.7 GM OINT...G. TP SCH (12:31)
[2023-02-18] MEDS ORDERED: SODIUM CHLORIDE IV SCH ×9 (21:00)
[2023-02-18] MEDS ORDERED: K PHOS IV SCH ×9 (21:00)
[2023-02-18] MEDS ORDERED: TPN CENTRAL IV SCH ×9 (21:00)
[2023-02-18] MEDS ORDERED: [UNRECOGNIZED DRUG - OTHER] IV SCH ×9 (21:00)
== END 2023-02-18 18:40 | DRG 720 ==
LOC: SED 07:49 → SIC 09:20
PROVIDERS: ADMIT Internal Medicine; ATTEND Internal Medicine
PROC: 5A1955Z Respiratory Ventilation, Greater than 96 Consecutive Hours (ICD-10-PCS; principal; 2023-01-18)
PROC: 02HV33Z Insertion of Infusion Device into Superior Vena Cava, Percutaneous Approach (ICD-10-PCS; 2023-01-18)
PROC: 4A00X4Z Measurement of Central Nervous Electrical Activity, External Approach (ICD-10-PCS; 2023-01-20)
PROC: 0T933ZZ Drainage of Right Kidney Pelvis, Percutaneous Approach (ICD-10-PCS; 2023-01-27)
PROC: BT41ZZZ Ultrasonography of Right Kidney (ICD-10-PCS; 2023-01-27)
PROC: BT11ZZZ Fluoroscopy of Right Kidney (ICD-10-PCS; 2023-01-27)
PROC: 4A00X4Z Measurement of Central Nervous Electrical Activity, External Approach (ICD-10-PCS; 2023-02-06)
DX: A41.51 Sepsis due to Escherichia coli [E. coli] (principal); J96.20 Acute and chronic respiratory failure, unspecified whether with hypoxia or hypercapnia; R65.21 Severe sepsis with septic shock; J95.851 Ventilator associated pneumonia; B49 Unspecified mycosis; G82.50 Quadriplegia, unspecified; E44.1 Mild protein-calorie malnutrition; I95.9 Hypotension, unspecified; G83.5 Locked-in state; E87.0 Hyperosmolality and hypernatremia; G93.1 Anoxic brain damage, not elsewhere classified; K21.9 Gastro-esophageal reflux disease without esophagitis; G40.909 Epilepsy, unspecified, not intractable, without status epilepticus; Z16.24 Resistance to multiple antibiotics; N31.9 Neuromuscular dysfunction of bladder, unspecified; Z66 Do not resuscitate; R00.1 Bradycardia, unspecified; N13.6 Pyonephrosis; R13.12 Dysphagia, oropharyngeal phase; F15.10 Other stimulant abuse, uncomplicated; L89.90 Pressure ulcer of unspecified site, unspecified stage; I10 Essential (primary) hypertension; K56.7 Ileus, unspecified; Z99.11 Dependence on respirator [ventilator] status; Z79.899 Other long term (current) drug therapy; Z79.01 Long term (current) use of anticoagulants; Z79.1 Long term (current) use of non-steroidal anti-inflammatories (NSAID); Z93.3 Colostomy status; Z93.0 Tracheostomy status; Z93.1 Gastrostomy status; Z87.442 Personal history of urinary calculi; Z86.73 Personal history of transient ischemic attack (TIA), and cerebral infarction without residual deficits; Z22.322 Carrier or suspected carrier of Methicillin resistant Staphylococcus aureus; Z68.28 Body mass index [BMI] 28.0-28.9, adult
CPT/HCPCS: 36415; 36600; 50432; 70450-TC; 71045; 74018; 74250-TC; 76001; 76376; 76942-TC; 78606; 80048; 80053; 80076; 81000; 81001; 81015; 82533; 82803; 82962; 83605; 83735; 83880; 83930; 83935; 84100; 84302; 84439; 84443; 84478; 84480; 84484; 85007; 85025; 85027; 85610-TC; 85730-TC; 87040; 87070-TC; 87081; 87086; 87205-TC; 93005; 94002; 94003; 94640; 94760; 95816; 96365; 96368; 99291; J0360; J0456; J0461; J0692; J0713; J1030; J1265; J1450; J1644; J1720; J1815; J1940; J1953; J2001; J2060; J2150; J2543; J2597; J2765; J3370; J3475; J3480; J3490; J7030; J7050; J7060; J7131; P9046; Q9963; Q9964; Q9967